=== PATIENT | female | born 1945 | race Caucasian/White ===

== ENCOUNTER 2019-12-18 20:09 | Inpatient (IN) | payer MEDICARE, OTHER ==
[2019-12-18] MEDS ORDERED: Acetaminophen 650 MG Suppository ONE (20:52)
[2019-12-18] MEDS ORDERED: Acetaminophen 325 MG Suppository ONE (20:52)
[2019-12-18] MEDS ORDERED: Ondansetron PF 4 MG/2 ML Vial ONE (20:54)
[2019-12-18] MEDS ORDERED: cefTRIAXone\\ROCEPHIN 2 GM VIAL ONE (20:54)
[2019-12-18 21:17] LABS: Hemoglobin 14.9 g/dL (12.0-16.0); Mean Corpuscular HGB CONC 33.1 g/dL (32.0-36.0); Mean Corpuscular Hemoglobin 34.1 pg (27.0-31.0); Platelet Count 207 thou/uL (130-400); Red Blood Cell (RBC) Count 4.37 mill/uL (4.20-5.40); White Blood Cell (WBC) Count 14.6 thou/uL (4.8-10.8)
[2019-12-18 21:28] LABS: Band 24 % (5-11); Lymphocytes 7 % (21-51); MDiff Complete? YES; Monocytes 5 % (0-10); Neutrophil 64 % (42-75); Platelet Morphology Comment Appears Adequate
[2019-12-18 21:36] LABS: Bacteria/HPF 4+ HPF (None Seen); Bilirubin Negative (Negative); Blood, Urine 2+ (Negative); Clarity Extra Turbid (Clear); Glucose, Urine (Dipstick) Normal (Negative); Ketone, Urine Negative (Negative); Leukocyte 500 Leu/uL (Negative); Nitrite Negative (Negative); Protein, Urine (Dipstick) 70 mg/dL (Neg-Trace); RBC/HPF 21-50 HPF (0-3); Specific Gravity, Urine 1.019 (1.002-1.036); Squamous Epithelial None Seen HPF (0-3); Urobilinogen Normal mg/dL (Less than 2); WBC/HPF Greater than 50 HPF (0-3); pH, Urine 5.5 (5.0-9.0)
--- NOTE | 2019-12-18 21:39 | RAD ---
PORTABLE CHEST: 12/18/19 INDICATIONS: Mental status change. Fever. COMPARISON: 03/11/16. Cardiomegaly with mild vascular engorgement. No evidence of overt congestion, edema, or infiltrate. N o significant effusion. A calcified nodule in the peripheral left lung is stable. IMPRESSION: Cardiomegaly and mild vascular engorgement without evidence of acute process. POS: AGW
[2019-12-18 22:37] LABS: Albumin 2.9 g/dL (3.4-4.8)
[2019-12-18 22:39] LABS: Calcium 9.1 mg/dL (7.8-10.44); Chloride 104 mmol/L (98-107); Potassium 3.7 mmol/L (3.5-5.1); Sodium 139 mmol/L (136-145)
[2019-12-18 22:40] LABS: Globulin 4.3 g/dL (2.4-3.5); Glucose 119 mg/dL (83-110); Protein, Total 7.2 g/dL (6.0-8.3)
[2019-12-18 22:41] LABS: Anion Gap 18 mmol/L (10-20); Carbon Dioxide 21 mmol/L (23-31)
[2019-12-18 22:42] LABS: Bilirubin, Total 1.9 mg/dL (0.2-1.2)
[2019-12-18 22:43] LABS: Alkaline Phosphatase 84 U/L (40-110); Calc. Creatinine Clearance 0 mL/min (70-130); Estimated GFR-MDRD 38
[2019-12-18 22:44] LABS: BUN (Urea Nitrogen) 24 mg/dL (9.8-20.1)
[2019-12-18 22:45] LABS: AST (SGOT) 21 U/L (5-34)
[2019-12-18 22:46] LABS: ALT (SGPT) 10 U/L (8-55)
[2019-12-19] MEDS ORDERED: Ondansetron PF 4 MG/2 ML Vial IVP PRN (00:23)
[2019-12-19] MEDS ORDERED: Sodium Chloride 0.9% 1,000 ML IV SCH (00:30)
--- NOTE | 2019-12-19 00:32 | PDOC.HHP ---
Hospitalist HPI - History of Present Illness Altered mental status History of Present Illness: 74-year-old morbidly obese woman with a history of hypertension, history of DVT, chronic lymphedema of lower extremities, history of UTI in the past was brought to the emergency department due to altered mental status. Patient spouse also reported she is not been eating well and was tolerating only liquids over the last few days. Spouse also reported patient has been weaker than usual therefore brought her to the emergency department. She denied any fever, she denied any cough or chest pain. She endorsed diarrhea. Patient noted to have leukocytosis. She was tachycardic and febrile with a temperature up to 102 in the ED. her UA suggest the presence of UTI. Patient was more awake after bolus of normal saline in the ED and was able to provide some history. She states that she needs help with transfer but is able to ambulate with a walker. Chest x-ray showed cardiomegaly with mild vascular congestion. Patient is admitted for further management of UTI with sepsis. Hospitalist ROS - Review of Systems Other: Except as documented, all other systems reviewed and negative Hospitalist History - Past Medical History Other Medical History: Hypertension, morbid obesity, osteoarthritis, prediabetes, history of deep vein thrombosis of bilateral lower extremities on Coumadin anticoagulation, chronic lymphedema, multiple skin wounds, history of urinary tract infection with sepsis, anxiety depression. - Family History Other Family History: Reviewed and noncontributory - Social History Smoking Status: Never smoker Alcohol: reports: None Drugs: reports: none Living Situation: With Family - Exam General - other findings: Morbidly obese Eye: PERRL, anicteric sclera ENT: normocephalic atraumatic, no oropharyngeal lesions, moist mucosa Neck: supple, symmetric, no JVD, no thyromegaly Heart: RRR, no murmur, no gallops Respiratory: CTAB, no wheezes, no rales Gastrointestinal: soft, non-tender, non-distended, normal bowel sounds Extremities: no cyanosis Extremities - other findings: Trace bilateral pitting edema of ankle. Skin: normal turgor Neurological: cranial nerve grossly intact, no focal deficits Musculoskeletal: normal tone Psychiatric: normal affect, oriented to person, oriented to place Hospitalist Results - Labs Result Diagrams: 12/18/19 20:56 12/18/19 22:05 Lab results: WBC 14.6 thou/uL (4.8-10.8) H 12/18/19 20:56 Hgb 14.9 g/dL (12.0-16.0) 12/18/19 20:56 Hct 45.0 % (36.0-47.0) 12/18/19 20:56 MCV 103.0 fL (78.0-98.0) H 12/18/19 20:56 Plt Count 207 thou/uL (130-400) 12/18/19 20:56 Band Neuts % (Manual) 24 % (5-11) H 12/18/19 20:56 Sodium 139 mmol/L (136-145) 12/18/19 22:05 Potassium 3.7 mmol/L (3.5-5.1) 12/18/19 22:05 Chloride 104 mmol/L (98-107) 12/18/19 22:05 Carbon Dioxide 21 mmol/L (23-31) L 12/18/19 22:05 BUN 24 mg/dL (9.8-20.1) H 12/18/19 22:05 Creatinine 1.36 mg/dL (0.6-1.1) H 12/18/19 22:05 Glucose 119 mg/dL (83-110) H 12/18/19 22:05 Lactic Acid 3.2 mmol/L (0.5-2.2) H 12/18/19 20:56 Calcium 9.1 mg/dL (7.8-10.44) 12/18/19 22:05 Total Bilirubin 1.9 mg/dL (0.2-1.2) H 12/18/19 22:05 AST 21 U/L (5-34) 12/18/19 22:05 ALT 10 U/L (8-55) 12/18/19 22:05 Alkaline Phosphatase 84 U/L (40-110) 12/18/19 22:05 Serum Total Protein 7.2 g/dL (6.0-8.3) 12/18/19 22:05 Albumin 2.9 g/dL (3.4-4.8) L 12/18/19 22:05 Urine Ketones Negative mg/dL (Negative) 12/18/19 21:15 Urine Blood 2+ (Negative) A 12/18/19 21:15 Urine Nitrite Negative (Negative) 12/18/19 21:15 Ur Leukocyte Esterase 500 Los/uL (Negative) A 12/18/19 21:15 Urine RBC 21-50 HPF (0-3) A 12/18/19 21:15 Urine WBC Greater than 50 HPF (0-3) A 12/18/19 21:15 Ur Squamous Epith Cells None Seen HPF (0-3) 12/18/19 21:15 Urine Bacteria 4+ HPF (None Seen) A 12/18/19 21:15 - Radiology Interpretation Chest x-ray Status: report reviewed by me (Cardiomegaly and mild vascular congestion) Hospitalist H&P A/P - Problem (1) Acute renal failure Status: Acute (2) Sepsis with metabolic encephalopathy Code(s): A41.9 - SEPSIS, UNSPECIFIED ORGANISM; R65.20 - SEVERE SEPSIS WITHOUT SEPTIC SHOCK; G93.41 - METABOLIC ENCEPHALOPATHY Status: Acute (3) History of DVT (deep vein thrombosis) Code(s): Z86.718 - PERSONAL HISTORY OF OTHER VENOUS THROMBOSIS AND EMBOLISM Status: Acute (4) Morbid obesity Code(s): E66.01 - MORBID (SEVERE) OBESITY DUE TO EXCESS CALORIES Status: Chronic (5) UTI (urinary tract infection) Status: Resolved Qualifiers: Urinary tract infection type: acute cystitis Hematuria presence: without hematuria Qualified Code(s): N30.00 - Acute cystitis without hematuria - Plan Plan: Admit to the medical floor. Sepsis protocol initiated. Repeat lactic acid. We will treat with IV Rocephin and vancomycin. Follow urine culture and blood cultures. Supportive measures. Brief IV hydration for acute renal failure. Monitor renal function. PT evaluation Continue Coumadin for history of DVT.
[2019-12-19 00:39] LABS: Lactic Acid 1.5 mmol/L (0.5-2.2)
[2019-12-19 01:08] LABS: INR-International Normal Ratio 1.2; PTT 40.7 sec (22.9-36.1); Prothrombin Time 15.6 sec (12.0-14.7)
--- NOTE | 2019-12-19 02:44 | PDOC.FMACP ---
Advance Care Planning - Problem (1) Acute renal failure Status: Acute (2) Sepsis with metabolic encephalopathy Status: Acute Code(s): A41.9 - SEPSIS, UNSPECIFIED ORGANISM; R65.20 - SEVERE SEPSIS WITHOUT SEPTIC SHOCK; G93.41 - METABOLIC ENCEPHALOPATHY (3) History of DVT (deep vein thrombosis) Status: Acute Code(s): Z86.718 - PERSONAL HISTORY OF OTHER VENOUS THROMBOSIS AND EMBOLISM (4) Morbid obesity Status: Chronic Code(s): E66.01 - MORBID (SEVERE) OBESITY DUE TO EXCESS CALORIES (5) UTI (urinary tract infection) Status: Resolved Qualifiers: Urinary tract infection type: acute cystitis Hematuria presence: without hematuria Qualified Code(s): N30.00 - Acute cystitis without hematuria - Note Summary: Advanced Care Planning was discussed. The diagnosis, prognosis and goals of care were discussed. Appropriate forms and documentation to accomplish the goals of care were discussed. All questions were answered. The Palliative Care Team will be engaged to assist with completion of any outstanding forms that are needed. Patient wishes to remain full code. Her surrogate decision maker is her . Time Spent (mins): 16
[2019-12-19 04:47] LABS: #Lymphocytes 1.3 thou/uL (1.20-3.40); #Monocytes 0.6 thou/uL (0.11-0.59); #Neutrophils 8.8 thou/uL (1.40-6.50); %Basophils 0.2 % (0.0-1.0); %Eosinophils 0.1 % (0.0-10.0); %Lymphocytes 11.9 % (21.0-51.0); %Monocytes 5.9 % (0.0-10.0); %Neutrophils 81.9 % (42.0-75.0); Hemoglobin 12.6 g/dL (12.0-16.0); Mean Corpuscular HGB CONC 32.4 g/dL (32.0-36.0); Mean Corpuscular Hemoglobin 34.6 pg (27.0-31.0); Mean Platelet Volume 8.3 fL (7.4-10.4); Platelet Count 141 thou/uL (130-400); Red Blood Cell (RBC) Count 3.64 mill/uL (4.20-5.40); White Blood Cell (WBC) Count 10.7 thou/uL (4.8-10.8)
[2019-12-19 05:09] LABS: Anion Gap 12 mmol/L (10-20); BUN (Urea Nitrogen) 25 mg/dL (9.8-20.1); Calc. Creatinine Clearance 67 mL/min (70-130); Calcium 9.2 mg/dL (7.8-10.44); Carbon Dioxide 20 mmol/L (23-31); Chloride 107 mmol/L (98-107); Estimated GFR-MDRD 43; Glucose 107 mg/dL (83-110); Potassium 4.2 mmol/L (3.5-5.1); Sodium 135 mmol/L (136-145)
--- NOTE | 2019-12-19 08:33 | CT ---
CT HEAD WITHOUT CONTRAST: INDICATION: Mental status change. FINDINGS: The ventricles have normal size and position. Moderately severe chronic ischemic white matter change s are noted. There is no evidence of a mass or hemorrhage. Evidence of encephalomalacia in the righ t cerebellum suggests old infarct. No evidence of acute cortical infarct or mass. IMPRESSION: Moderately severe chronic ischemic whit matter change. 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 POS: AGW
[2019-12-19] MEDS ORDERED: Vancomycin HCl 1 GM in Sodium Chloride 0.9% 250 ML 300 ML IVPB SCH (09:00)
[2019-12-19] MEDS ORDERED: Enoxaparin Sodium 40 MG/0.4 ML SYRINGE SC SCH (09:00)
[2019-12-19] MEDS ORDERED: FLU VACC QS2020-21(65YR UP)/PF 240 MCG/0.7 ML SYRINGE IM ONE (09:00)
[2019-12-19 12:10] LABS: SARS-CoV-2 MS2 Positive; SARS-CoV-2 N Gene Negative; SARS-CoV-2 S Gene Negative; SARS-CoV-2 by NAA Not Detected (NotDetected); SARS-CoV-2 orf1ab Negative
--- NOTE | 2019-12-19 12:30 | PDOC.HOSPP ---
- Objective Vital Signs & Weight: Vital Signs (12 hours) Temp Pulse Resp BP Pulse Ox 12/19/19 11:25 98.1 F 100 16 146/87 H 96 12/19/19 07:07 98.8 F 95 20 137/60 95 12/19/19 01:22 99 12/19/19 01:19 99.2 F 97 18 146/71 H 99 Weight Weight 231 lb 12.8 oz I&O: 12/18/19 12/19/19 12/20/19 06:59 06:59 06:59 Intake Total 700 Output Total 50 Balance 650 Result Diagrams: 12/19/19 04:21 12/19/19 04:21 Additional Labs: Accuchecks 12/19/19 12/19/19 10:59 06:08 POC Glucose 72 93 Hospitalist ROS - Medication Medications: Active Medications Generic Name Dose Route Start Last Admin Trade Name Freq PRN Reason Stop Dose Admin Enoxaparin Sodium 40 mg 12/19/19 09:00 12/19/19 08:21 Enoxaparin Sodium 40 Mg/0.4 Ml Syringe SC 40 mg 0900 HARPREET Administration Sodium Chloride 1,000 mls @ 75 mls/hr 12/19/19 00:30 12/19/19 01:57 Normal Saline 0.9% IV 12/19/19 12:31 Not Given .[id number] [facility] Hosp A/P - Plan Acute renal failure Status: Acute (2) Sepsis with metabolic encephalopathy Code(s): A41.9 - SEPSIS, UNSPECIFIED ORGANISM; R65.20 - SEVERE SEPSIS WITHOUT SEPTIC SHOCK; G93.41 - METABOLIC ENCEPHALOPATHY Status: Acute (3) History of DVT (deep vein thrombosis) Code(s): Z86.718 - PERSONAL HISTORY OF OTHER VENOUS THROMBOSIS AND EMBOLISM Status: Acute (4) Morbid obesity Code(s): E66.01 - MORBID (SEVERE) OBESITY DUE TO EXCESS CALORIES Status: Chronic (5) UTI (urinary tract infection) Status: Resolved Qualifiers: Urinary tract infection type: acute cystitis Hematuria presence: without hematuria Qualified Code(s): N30.00 - Acute cystitis without hematuria --Sepsis secondary to urinary tract infection present on admission - IV Rocephin and vancomycin. Follow urine culture and blood cultures. - Brief IV hydration for acute renal failure. Monitor renal function. PT evaluation consult placed as well as case finisher consult. history of DVT. -O history and physical suggested that patient is on Coumadin but I do not see Coumadin in his med rec. Also given a Lovenox DVT prophylaxis -. -Check with the patient and start Coumadin if she is taking Coumadin.
[2019-12-19] MEDS ORDERED: Iopamidol-370 76% 500 ML 1 ML ONE (13:51)
[2019-12-19] MEDS ORDERED: Metoprolol Tartrate 5 MG/5 ML VIAL IVP PRN (14:21)
[2019-12-19] MEDS ORDERED: Enoxaparin Sodium 100 MG/ML SYRINGE SC SCH (17:45)
--- NOTE | 2019-12-19 20:10 | ULT ---
BILATERAL LOWER EXTREMITY VENOUS DUPLEX: 12/19/19 Deep veins of both lower extremities evaluated with ultrasound and Doppler with color Doppler, spectr al analysis and compression. INDICATION: Bilateral lower extremity pain and edema. FINDINGS: In the right lower extremity, there is flow seen in the common femoral vein. Flow is seen in the mid and distal femoral vein. However, there is thrombus and loss of compressibility in the popliteal vein consistent with right l ower extremity DVT. In the left lower extremity there is flow in the common femoral vein. However, the left femoral vein in the mid thigh shows no evidence of compressibility and there is echogenic thrombus present. No sig nificant flow distal to this. IMPRESSION: Evidence of bilateral deep vein thrombosis. Technologist notified patient's nurse on 2N of these findings and the doctor will be notified. Code CR POS: AGDemond
[2019-12-19] MEDS: MEROPENEM 1 GM/50 ML 1 GM in Premix Bag 1 BAG IVPB SCH (20:35)
[2019-12-19] MEDS: Metoprolol Tartrate 50 MG TAB PO SCH (20:36)
[2019-12-19] MEDS: Acetaminophen 325 MG TAB PO PRN (20:36)
[2019-12-19] MEDS ORDERED: cefTRIAXone\\ROCEPHIN 2 GM in Sodium Chloride 0.9% 100 ML IVPB SCH (21:00)
[2019-12-19] MEDS ORDERED: Metoprolol Tartrate 100 MG TAB PO SCH (21:00)
--- NOTE | 2019-12-19 21:14 | CT ---
CTA CHEST WITH CONTRAST: 12/19/19 Axial tomograms obtained following angio protocol with multiplanar reconstruction and 3D postprocessi ng. INDICATIONS: Positive DVT. Assess for pulmonary embolus. FINDINGS: Pulmonary arteries show adequate enhancement. There is no evidence of pulmonary embolus. Thoracic aor ta shows atherosclerotic change. No dissection. The lungs show mild vascular congestion. No confluent infiltrate or consolidation. Mild bibasilar ate lectasis. Calcified nodule in the left lung base measures 1.2 cm. Calcified mediastinal lymph nodes a re noted indicating a prior granulomatous process. Images through the upper abdomen reveal granulomatous calcifications in the spleen. There is mild ane urysmal dilatation of the upper abdominal aorta with atherosclerotic changes. The upper abdominal aor ta measures up to 3.5 cm diameter. There is ectasia of the descending thoracic aorta with irregular l umen and peripheral thrombus. IMPRESSION: 1. No evidence of pulmonary embolus. 2. No acute lung process. 3. Evidence of prior granulomatous process. 4. Atherosclerotic changes in the thoracic aorta with ectasia of the descending thoracic aorta a nd mild aneurysmal dilatation of the upper abdominal aorta. POS: AGW
[2019-12-19 21:20] LABS: Platelet Count 167 thou/uL (130-400)
[2019-12-19] MEDS ORDERED: Vancomycin 1.5 GRAM/300 ML BAG 1.5 GM in Premix Bag 1 BAG IVPB SCH (22:00)
[2019-12-20] MEDS: MEROPENEM 1 GM/50 ML 1 GM in Premix Bag 1 BAG IVPB SCH ×3 (04:29→19:54)
[2019-12-20 04:38] LABS: Hemoglobin 11.7 g/dL (12.0-16.0); Platelet Count 150 thou/uL (130-400)
[2019-12-20] MEDS: Metoprolol Tartrate 50 MG TAB PO SCH ×2 (08:21→19:57)
[2019-12-20] MEDS ORDERED: Enoxaparin Sodium 100 MG/ML SYRINGE SC SCH (09:00)
[2019-12-20] MEDS ORDERED: Aspirin 81 mg Enteric Coated Tablet PO SCH (09:00)
[2019-12-20 11:13] LABS: Hemoglobin 13.2 g/dL (12.0-16.0)
[2019-12-20 11:26] LABS: INR-International Normal Ratio 1.2; Prothrombin Time 15.9 sec (12.0-14.7)
--- NOTE | 2019-12-20 12:03 | PDOC.HOSPP ---
- Subjective Encounter Date: 12/20/19 Encounter Time: 09:40 Subjective: While I was discussing the choices for anticoagulant patient had a rectal bleed. mostly of a blood clots and some bleed rather than terence bright red blood. Stable hemoglobin. Spouse states that they cannot afford the Coumadin as needs to be checked every month and they would not be able to check the INR even monthly basis. Oral anticoagulant choices are limited given the expense. Coumadin is the preferred choice. Discussed with the case loader operator about Xarelto or Eliquis. - Objective Vital Signs & Weight: Vital Signs (12 hours) Temp Pulse Resp BP BP Pulse Ox 12/20/19 11:00 98.5 F 82 18 143/63 H 100 12/20/19 07:04 98.5 F 72 16 142/67 H 100 12/20/19 03:27 97.3 F L 65 20 148/65 H 97 Weight Admit Weight 231 lb 1.6 oz Weight 226 lb 1.6 oz I&O: 12/19/19 12/20/19 12/21/19 06:59 06:59 06:59 Intake Total 700 700 Output Total 50 370 Balance 650 330 Result Diagrams: 12/20/19 10:56 12/20/19 04:16 Additional Labs: Accuchecks 12/20/19 12/20/19 12/20/19 10:44 06:20 03:06 POC Glucose 80 78 83 12/19/19 12/19/19 20:29 16:49 POC Glucose 78 84 Hospitalist ROS - Medication Medications: Active Medications Generic Name Dose Route Start Last Admin Trade Name Freq PRN Reason Stop Dose Admin Acetaminophen 650 mg 12/19/19 00:23 12/19/19 20:36 Acetaminophen 325 Mg Tab PO 650 mg Q4H PRN Administration Headache/Fever/Mild Pain (1-3) Vancomycin HCl 1.5 gm/ Device 300 mls @ 200 mls/hr 12/19/19 22:00 12/19/19 20:35 IVPB 300 mls 2200 HARPREET Administration Meropenem 1 gm/ Device 50 mls @ 100 mls/hr 12/19/19 20:00 12/20/19 11:33 IVPB 50 mls 0400,1200,2000 HARPREET Administration Metoprolol Tartrate 50 mg 12/19/19 21:00 12/20/19 08:21 Metoprolol Tartrate 50 Mg Tab PO 50 mg BID HARPREET Administration Pantoprazole Sodium 40 mg 12/20/19 09:00 12/20/19 08:20 Pantoprazole 40 Mg Tab PO 40 mg DAILY HARPREET Administration Sertraline HCl 50 mg 12/20/19 09:00 12/20/19 08:20 Sertraline Hcl 100 Mg Tab PO 50 mg DAILY HARPREET Administration - Exam General Appearance: NAD, awake alert General - other findings: Obese Eye: PERRL ENT: normocephalic atraumatic Neck: supple Heart: RRR Respiratory: CTAB, normal chest expansion Gastrointestinal: soft, normal bowel sounds Extremities - other findings: No venous stasis skin is warm to touch Neurological: no new deficit Psychiatric: A&O x 3 Hosp A/P - Plan Acute renal failure Status: Acute (2) Sepsis with metabolic encephalopathy Code(s): A41.9 - SEPSIS, UNSPECIFIED ORGANISM; R65.20 - SEVERE SEPSIS WITHOUT SEPTIC SHOCK; G93.41 - METABOLIC ENCEPHALOPATHY Status: Acute (3) History of DVT (deep vein thrombosis) Code(s): Z86.718 - PERSONAL HISTORY OF OTHER VENOUS THROMBOSIS AND EMBOLISM Status: Acute (4) Morbid obesity Code(s): E66.01 - MORBID (SEVERE) OBESITY DUE TO EXCESS CALORIES Status: Chronic (5) UTI (urinary tract infection) Status: Resolved Qualifiers: Urinary tract infection type: acute cystitis Hematuria presence: without hematuria Qualified Code(s): N30.00 - Acute cystitis without hematuria --Sepsis secondary to urinary tract infection present on admission - IV Rocephin and vancomycin. Follow urine culture and blood cultures. - Brief IV hydration for acute renal failure. Monitor renal function. PT evaluation consult placed as well as case loader operator consult. history of DVT. -O history and physical suggested that patient is on Coumadin but I do not see Coumadin in his med rec. Also given a Lovenox DVT prophylaxis -. -Check with the patient and start Coumadin if she is taking Coumadin. 4th Bilateral DVT -Negative PE Spouse states that they cannot afford the Coumadin as needs to be checked every month and they would not be able to check the INR even monthly basis. Oral anticoagulant choices are limited given the expense. Coumadin is the preferred choice. will Discuss with the case loader operator about Xarelto or Eliquis. Rectal bleed with blood clot Hemoglobin stable Discussed with Dr. Murphy - alton ocasio. -Restarting her Lovenox. -H&H 3 more times every 6 hours. Protonix p.o. She may need IVC filter placement given the future risk for GIB and need to be on NOAC or coumadin. We will discuss with Dr. Johnson tomorrow.
--- NOTE | 2019-12-20 13:38 | PDOC.EVN ---
Event Note - Event Note Event Note: Blood cultures came back positive for E. coli. 1 out of 2 positive. She is already covered with Merrem for ESBL E. coli UTI. Will repeat the blood culture tomorrow after 24 hours being first set positive. If second set of culture also positive, then she needs PICC line and 6 weeks of antibiotics. We will follow the clinical course.
[2019-12-20] MEDS ORDERED: Hydrocortisone Acetate 25 MG Suppository PR PRN (13:56)
[2019-12-20] MEDS ORDERED: Nystatin Powder 15 GM BOT TOP PRN (14:53)
[2019-12-20] MEDS: Acetaminophen 325 MG TAB PO PRN (15:35)
[2019-12-20 16:28] LABS: Hemoglobin 11.6 g/dL (12.0-16.0)
[2019-12-20] MEDS ORDERED: Sodium Chloride 0.9% (PF) 10 ML VIAL FS PRN (19:15)
[2019-12-20] MEDS ORDERED: Pantoprazole 40 MG VIAL IVP SCH (19:15)
[2019-12-20] MEDS: Enoxaparin Sodium 100 MG/ML SYRINGE SC SCH (19:54)
--- NOTE | 2019-12-20 20:18 | CON ---
DATE OF CONSULTATION: 12/20/2019 CONSULTING DOCTOR: Judd Rogel MD REASON FOR CONSULT: Rectal bleeding. HISTORY OF PRESENT ILLNESS: Ms. Lance is a 74-year-old female, who was admitted to the hospital yesterday for a complicated UTI. Apparently, she had not felt well for a couple of days and her noted to be confused and lethargic and much less interactive than usual. She had a low-grade temperature at home. EMS had noted to be 100 and here on arrival was 102. Apparently, she had vomited a few times yesterday and had not really been getting much down except for water. She denies any cough, shortness of breath, or chest pain, but apparently had also some dysuria. She was evaluated in the emergency room, mildly tachycardic up to 100 to 130 with a pulse of 102. She had a nonfocal exam except for diminished breath sounds and obese abdomen. She was evaluated for CVA, which was negative. She had a urine that ultimately showed E. coli and blood cultures have been positive for E. coli as well. Her urine showed greater than 500 leukocyte esterase, greater than 50 white blood cells, and 4+ bacteria. The patient did have a remote history of DVTs in the past several years ago. She apparently had been having complaints of leg discomfort, but they decided to go ahead and ultrasound her legs. Venogram yesterday showed no evidence of bilateral DVTs. It is unclear if these are old or new. In any event, she has not been having any swelling or pain in her legs. She was started on anticoagulation and around that time, she had a bowel movement with some bright red blood per rectum. I was called to evaluate her. The patient notes that she has intermittent rectal bleeding and has for several years. She attributes this to hemorrhoids, usually bright red. She notes that after she was diagnosed with her DVTs, she was discharged in 2017. She was sent out on Coumadin. She was in a care home for a time, where this was covered, but ultimately when she was released, she could not afford, given that she has not been on it for at least a year. She denies shortness of breath or dyspnea on exertion. A CT angio was negative. REVIEW OF SYSTEMS: Negative for shortness of breath, dyspnea on exertion, dysphagia, odynophagia, melena, or weight loss. She has had rectal bleeding intermittently. At times, she has had diarrhea since starting antibiotics on admission, not prior to admission. PAST MEDICAL HISTORY: Morbid obesity, osteoarthritis, diabetes, history of DVT in 2017, chronic lymphedema in the past, history of UTIs in the past with sepsis, anxiety, and depression. PAST SURGICAL HISTORY: Tonsillectomy. She notes she has had a barium enema done, she had a colonoscopy in the past. Breast cyst removal as well. MEDICATIONS AT HOME: 1. Sertraline. 2. Omeprazole. 3. Metoprolol. 4. Aspirin. ALLERGIES: CODEINE, TALWIN, AND DARVON. MEDICATIONS PRESENTLY: 1. Tylenol. 2. Lovenox. 3. Meropenem. 4. Lopressor b.i.d. 50 mg. 5. Zofran. 6. Protonix 40 mg daily. 7. Sertraline. 8. Vancomycin. FAMILY HISTORY: Negative for colon cancer or liver disease. SOCIAL HISTORY: Negative for alcohol or tobacco. She is now living at home with her . LABORATORY DATA: Blood work; white count 14,000 on admission, 10,000 yesterday, and not done today. Hemoglobin 13.2, today it was 11.7 earlier this morning, 13 yesterday, 12.6 on the 3rd, and 14.9 on admission. Platelet count normal. INR 1.1. Creatinine is 1.04. On 12/17, she had a sodium 139, potassium 3.7, and BUN and creatinine of 24 and 1.36. Bilirubin 1.9. Liver function tests otherwise normal. Albumin 2.9. PHYSICAL EXAMINATION: VITAL SIGNS: Temperature is 95, pulse 82, and blood pressure 143/63. LUNGS: Clear. HEART: Regular rate and rhythm without clicks or murmurs. ABDOMEN: Soft. It is protuberant and obese. There is no rebound. There is no guarding. There is no evidence of hernias. EXTREMITIES: Reveal a large legs bilaterally, but there is no overt tightness in the leg or calf on either leg. She has no tenderness to palpation in leg or calf in either leg. RECTAL: Reveals brown stool, liquidy in the vault. GENERAL: She is alert and oriented to person, place, and time. NEUROLOGIC: Nonfocal. ASSESSMENT: 1. Rectal bleeding sounds hemorrhoidal. She has a normal exam except for brown stool and a small hemorrhoid. There is no gross blood in the rectum at this time. 2. Deep venous thrombosis. It is unclear if these are new or old. We will defer that to Internal Medicine. 3. Urosepsis. RECOMMENDATIONS: 1. I talked to the patient about getting a colonoscopy this admission, but she does not want to do that. She states she will not do that. She attributes her rectal bleeding to hemorrhoids. I have explained that it may worsen if she goes back on anticoagulation. She is not sure she would be able to do that either financially. She does understand the risk of malignancy and risk of intestinal hemorrhage with development of a hemorrhagic shock. I think that is unlikely. 2. Recommended topical steroids for her hemorrhoids. Recommended high-fiber diet. Would give her a probiotic as well for diarrhea with her antibiotics. If she changes her mind about the colonoscopy, I will be happy to re-evaluate her. She should be on a PPI for ulcer prophylaxis if she is going to be taking NSAIDs at home or be on prolonged anticoagulation. Job ID: [id number]
[2019-12-20] MEDS ORDERED: Vancomycin HCl 1.25 GM in Sodium Chloride 0.9% 250 ML 250 ML IVPB SCH (22:00)
[2019-12-21] MEDS: MEROPENEM 1 GM/50 ML 1 GM in Premix Bag 1 BAG IVPB SCH ×3 (03:46→21:56)
[2019-12-21] MEDS: Saccharomyces boulardii 250 MG CAP PO SCH (09:19)
[2019-12-21] MEDS: Metoprolol Tartrate 50 MG TAB PO SCH ×2 (09:19→21:57)
[2019-12-21] MEDS: Enoxaparin Sodium 100 MG/ML SYRINGE SC SCH (09:21)
[2019-12-21] MEDS: Pantoprazole 40 MG VIAL IVP SCH ×2 (09:27→21:57)
--- NOTE | 2019-12-21 12:05 | PDOC.HOSPP ---
- Subjective Encounter Date: 12/21/19 Encounter Time: 09:30 Subjective: Patient is doing well. She has no further blood in the stool. Hemoglobin stable. Discussed about anticoagulation choices. She will continue to take that provided it is inexpensive for her. I also discussed with Dr. Johnson on the possibility for IVC filter evaluation. - Objective Vital Signs & Weight: Vital Signs (12 hours) Temp Pulse Resp BP Pulse Ox 12/21/19 08:00 99.7 F H 60 18 193/79 H 100 12/21/19 03:10 98.3 F 58 L 20 136/65 99 Weight Admit Weight 231 lb 1.6 oz Weight 234 lb 9.6 oz I&O: 12/20/19 12/21/19 12/22/19 06:59 06:59 06:59 Intake Total 700 1410 120 Output Total 370 1000 Balance 330 410 120 Result Diagrams: 12/20/19 16:15 12/20/19 04:16 Additional Labs: Accuchecks 12/21/19 12/20/19 12/20/19 10:49 20:24 16:52 POC Glucose 88 93 81 Hospitalist ROS - Medication Medications: Active Medications Generic Name Dose Route Start Last Admin Trade Name Freq PRN Reason Stop Dose Admin Acetaminophen 650 mg 12/19/19 00:23 12/20/19 15:35 Acetaminophen 325 Mg Tab PO 650 mg Q4H PRN Administration Headache/Fever/Mild Pain (1-3) Enoxaparin Sodium 100 mg 12/20/19 21:00 12/21/19 09:21 Enoxaparin Sodium 100 Mg/Ml Syringe SC 100 mg 0900,2100 HARPREET Administration Meropenem 1 gm/ Device 50 mls @ 100 mls/hr 12/19/19 20:00 12/21/19 03:46 IVPB 50 mls 0400,1200,2000 HARPREET Administration Vancomycin HCl 1.25 gm/ Sodium 250 mls @ 166.667 mls/hr 12/20/19 22:00 12/20/19 22:22 Chloride IVPB 250 mls 2200 HARPREET Administration Metoprolol Tartrate 50 mg 12/19/19 21:00 12/21/19 09:19 Metoprolol Tartrate 50 Mg Tab PO 50 mg BID HARPREET Administration Pantoprazole Sodium 40 mg 12/21/19 09:00 12/21/19 09:27 Pantoprazole 40 Mg Vial IVP 40 mg Q12HR HARPREET Administration Saccharomyces Boulardii 250 mg 12/21/19 09:00 12/21/19 09:19 Saccharomyces Boulardii 250 Mg Cap PO 250 mg DAILY HARPREET Administration Sertraline HCl 50 mg 12/20/19 09:00 12/21/19 09:19 Sertraline Hcl 100 Mg Tab PO 50 mg DAILY HARPREET Administration Sodium Chloride 10 ml 12/20/19 19:15 12/21/19 09:23 Sodium Chloride 0.9% (Pf) 10 Ml Vial FS 10 ml PRN PRN Administration RECONSTITUTION - Exam General Appearance: NAD, awake alert Eye: PERRL ENT: normocephalic atraumatic Neck: supple Heart: RRR Respiratory: CTAB, normal chest expansion Gastrointestinal: soft, normal bowel sounds Neurological: no weakness Psychiatric: A&O x 3 Hosp A/P - Plan Acute renal failure Status: Acute (2) Sepsis with metabolic encephalopathy Code(s): A41.9 - SEPSIS, UNSPECIFIED ORGANISM; R65.20 - SEVERE SEPSIS WITHOUT SEPTIC SHOCK; G93.41 - METABOLIC ENCEPHALOPATHY Status: Acute (3) History of DVT (deep vein thrombosis) Code(s): Z86.718 - PERSONAL HISTORY OF OTHER VENOUS THROMBOSIS AND EMBOLISM Status: Acute (4) Morbid obesity Code(s): E66.01 - MORBID (SEVERE) OBESITY DUE TO EXCESS CALORIES Status: Chronic (5) UTI (urinary tract infection) Status: Resolved Qualifiers: Urinary tract infection type: acute cystitis Hematuria presence: without hematuria Qualified Code(s): N30.00 - Acute cystitis without hematuria --Sepsis secondary to urinary tract infection present on admission - IV Rocephin and vancomycin. Follow urine culture and blood cultures. - Brief IV hydration for acute renal failure. Monitor renal function. PT evaluation consult placed as well as medical case manager consult. history of DVT. -O history and physical suggested that patient is on Coumadin but I do not see Coumadin in his med rec. Also given a Lovenox DVT prophylaxis -. -Check with the patient and start Coumadin if she is taking Coumadin. 4th Bilateral DVT -Negative PE Spouse states that they cannot afford the Coumadin as needs to be checked every month and they would not be able to check the INR even monthly basis. Oral anticoagulant choices are limited given the expense. Coumadin is the preferred choice. will Discuss with the medical case manager about Xarelto or Eliquis. Rectal bleed with blood clot Hemoglobin stable Discussed with Dr. Murphy - ok w.. -Restarting her Lovenox. -H&H 3 more times every 6 hours. Protonix p.o. She may need IVC filter placement given the future risk for GIB and need to be on NOAC or coumadin. We will discuss with Dr. Johnson tomorrow. 5th -No further rectal bleed. -Appreciate the help from Dr. Murphy -Talk to Dr. oJhnson, given the recent rectal bleed I discussed about the IVC filter evaluation. Oral anticoagulation is preferred method for now.. If she had any recurrence of GI bleed, then we can consider placing IVC filter placement. We will start her on Coumadin this evening. Await until INR therapeutic. Also will check with the medical case manager whether Medicare would cover for her Xarelto or Eliquis if that is the case then we can put her on NOAC and discharge her earlier.
--- NOTE | 2019-12-21 14:44 | PRG ---
DATE OF SERVICE: 12/21/2019 REASON FOR CONSULTATION: Hematochezia. SUBJECTIVE: Over the last 24 hours, the patient states that she has had 1 to 2 diarrhea like bowel movements (Win[place] 5) with no difficulty with defecation; however, with the bowel movement this morning, she denied any appearance of hematochezia, that was confirmed by nursing staff. Otherwise, she currently denies any nausea, vomiting, fevers, chills, hematemesis, melena, hematochezia, abdominal pain, dysphagia, or odynophagia. OBJECTIVE: VITAL SIGNS: Temperature 99.1, pulse 66, blood pressure 146/74, respiratory rate 16, and saturating 100% on 2 L nasal cannula. GENERAL: The patient was lying in bed, in no acute distress. Alert and oriented x4. CARDIOVASCULAR: Regular rate and rhythm. RESPIRATORY: Clear to auscultation bilaterally. ABDOMEN: Normoactive bowel sounds. Soft, nontender, and nondistended. EXTREMITIES: No cyanosis, clubbing, or edema. LABORATORY DATA: Hemoglobin of 11.6 and hematocrit 35.8. IMAGING DATA: No current GI imaging is available for review. ASSESSMENT: 1. Hematochezia, most likely due to hemorrhoidal bleeding. Rectal exam performed on 12/19 showed the presence of a small nonbleeding external hemorrhoid with stable hemoglobin and hematocrit over the last 24 hours and no further episodes of hematochezia. 2. Deep vein thrombosis. The patient presenting with a history of deep vein thrombosis, that was on chronic anticoagulation prior to admission. Currently, no evidence of deep vein thromboses on recent imaging. 3. Urosepsis secondary to Eschericia coli and resultant bacteremia. RECOMMENDATIONS: 1. Would continue to trend her hemoglobin and hematocrit and transfuse as necessary to maintain the hemoglobin and hematocrit of 7/21. 2. Continue to monitor clinically for signs of active GI bleeding. 3. We would restart the patient on anticoagulation and monitor the patient after restarting. 4. Continue topical steroids for external hemorrhoids as the likely source of her hematochezia. 5. Endoscopic evaluation is not indicated at this time due to stabilization of her hemoglobin and hematocrit. No further episodes of GI bleeding and per patient preference. I discussed the risks and benefits of colonoscopy with the patient today, and at this time, she would prefer not to undergo the procedure at this time. 6. We will continue the patient on probiotics for her antibiotic-associated diarrhea. With stabilization of her hemoglobin and hematocrit and the patient refusing colonoscopy at this time, we will sign off. Please call with any further questions or change in the patient's clinical status. Job ID: [id number]
[2019-12-21] MEDS ORDERED: Warfarin Sodium 5 MG TAB PO SCH (17:00)
[2019-12-21] MEDS: Rivaroxaban 15 MG TAB PO SCH (21:56)
[2019-12-22] MEDS: MEROPENEM 1 GM/50 ML 1 GM in Premix Bag 1 BAG IVPB SCH ×3 (05:37→21:23)
[2019-12-22] MEDS: Saccharomyces boulardii 250 MG CAP PO SCH (09:16)
[2019-12-22] MEDS: Metoprolol Tartrate 50 MG TAB PO SCH ×2 (09:16→21:22)
[2019-12-22] MEDS: Rivaroxaban 15 MG TAB PO SCH ×2 (09:16→21:23)
[2019-12-22] MEDS: Pantoprazole 40 MG VIAL IVP SCH ×2 (09:16→21:23)
[2019-12-22 09:58] LABS: #Eosinphils 0.3 thou/uL (0.0-0.7); #Lymphocytes 1.8 thou/uL (1.20-3.40); #Monocytes 0.6 thou/uL (0.11-0.59); #Neutrophils 5.6 thou/uL (1.40-6.50); %Basophils 0.2 % (0.0-1.0); %Eosinophils 3.2 % (0.0-10.0); %Lymphocytes 21.8 % (21.0-51.0); %Monocytes 7.4 % (0.0-10.0); %Neutrophils 67.3 % (42.0-75.0); Hemoglobin 13.2 g/dL (12.0-16.0); Mean Corpuscular Hemoglobin 33.2 pg (27.0-31.0); Mean Platelet Volume 7.9 fL (7.4-10.4); Platelet Count 173 thou/uL (130-400); RBC Distribution Width 13.9 % (11.5-14.5); Red Blood Cell (RBC) Count 3.97 mill/uL (4.20-5.40); White Blood Cell (WBC) Count 8.4 thou/uL (4.8-10.8)
[2019-12-22 10:03] LABS: INR-International Normal Ratio 1.9; PTT 39.1 sec (22.9-36.1); Prothrombin Time 21.8 sec (12.0-14.7)
--- NOTE | 2019-12-22 12:03 | PDOC.HOSPP ---
- Subjective Encounter Date: 12/22/19 Encounter Time: 10:20 Subjective: at bedside. Discussed Coumadin versus Xarelto. The need to check INR not necessary. agreed for being on Xarelto. We can arrange with coupon for her to go home with a 1 month supply. However later that I heard that she is not able to move much with physical therapist supervision. Plan changed from home discharge to send her to the rehab. - Objective Vital Signs & Weight: Vital Signs (12 hours) Temp Pulse Pulse Pulse Resp BP BP 12/22/19 10:05 74 75 142/75 H 172/77 H 12/22/19 07:05 99.0 F 63 16 12/22/19 03:11 98.5 F 60 16 BP Pulse Ox Pulse Ox Pulse Ox 12/22/19 10:05 97 97 12/22/19 07:05 141/65 H 100 12/22/19 03:11 178/75 H 99 Weight Admit Weight 231 lb 1.6 oz Weight 234 lb 2.447 oz I&O: 12/21/19 12/22/19 12/23/19 06:59 06:59 06:59 Intake Total 1410 360 Output Total 1000 650 Balance 410 -290 Result Diagrams: 12/22/19 09:38 12/20/19 04:16 Additional Labs: Accuchecks 12/22/19 12/22/19 12/21/19 11:33 05:43 19:54 POC Glucose 100 78 89 12/21/19 12/21/19 16:57 06:17 POC Glucose 71 89 Hospitalist ROS - Medication Medications: Active Medications Generic Name Dose Route Start Last Admin Trade Name Freq PRN Reason Stop Dose Admin Acetaminophen 650 mg 12/19/19 00:23 12/20/19 15:35 Acetaminophen 325 Mg Tab PO 650 mg Q4H PRN Administration Headache/Fever/Mild Pain (1-3) Meropenem 1 gm/ Device 50 mls @ 100 mls/hr 12/19/19 20:00 12/22/19 11:38 IVPB 50 mls 0400,1200,2000 HARPREET Administration Metoprolol Tartrate 50 mg 12/19/19 21:00 12/22/19 09:16 Metoprolol Tartrate 50 Mg Tab PO 50 mg BID HARPREET Administration Pantoprazole Sodium 40 mg 12/21/19 09:00 12/22/19 09:16 Pantoprazole 40 Mg Vial IVP 40 mg Q12HR HARPREET Administration Rivaroxaban 15 mg 12/21/19 21:00 12/22/19 09:16 Rivaroxaban 15 Mg Tab PO 15 mg BID HARPREET Administration Saccharomyces Boulardii 250 mg 12/21/19 09:00 12/22/19 09:16 Saccharomyces Boulardii 250 Mg Cap PO 250 mg DAILY HARPREET Administration Sertraline HCl 50 mg 12/20/19 09:00 12/22/19 09:16 Sertraline Hcl 100 Mg Tab PO 50 mg DAILY HARPREET Administration Sodium Chloride 10 ml 12/20/19 19:15 12/21/19 09:23 Sodium Chloride 0.9% (Pf) 10 Ml Vial FS 10 ml PRN PRN Administration RECONSTITUTION - Exam General Appearance: NAD, awake alert Eye: PERRL ENT: normocephalic atraumatic Neck: supple Heart: RRR Respiratory: CTAB Gastrointestinal: soft, normal bowel sounds Neurological: no focal deficits Psychiatric: A&O x 3 Hosp A/P - Plan Acute renal failure Status: Acute (2) Sepsis with metabolic encephalopathy Code(s): A41.9 - SEPSIS, UNSPECIFIED ORGANISM; R65.20 - SEVERE SEPSIS WITHOUT SEPTIC SHOCK; G93.41 - METABOLIC ENCEPHALOPATHY Status: Acute (3) History of DVT (deep vein thrombosis) Code(s): Z86.718 - PERSONAL HISTORY OF OTHER VENOUS THROMBOSIS AND EMBOLISM S tatus: Acute (4) Morbid obesity Code(s): E66.01 - MORBID (SEVERE) OBESITY DUE TO EXCESS CALORIES Status: Chronic (5) UTI (urinary tract infection) Status: Resolved Qualifiers: Urinary tract infection type: acute cystitis Hematuria presence: without hematuria Qualified Code(s): N30.00 - Acute cystitis without hematuria --Sepsis secondary to urinary tract infection present on admission - IV Rocephin and vancomycin. Follow urine culture and blood cultures. - Brief IV hydration for acute renal failure. Monitor renal function. PT evaluation consult placed as well as case packer consult. history of DVT. -O history and physical suggested that patient is on Coumadin but I do not see Coumadin in his med rec. Also given a Lovenox DVT prophylaxis -. -Check with the patient and start Coumadin if she is taking Coumadin. 4th Bilateral DVT -Negative PE Spouse states that they cannot afford the Coumadin as needs to be checked every month and they would not be able to check the INR even monthly basis. Oral anticoagulant choices are limited given the expense. Coumadin is the preferred choice. will Discuss with the case packer about Xarelto or Eliquis. Rectal bleed with blood clot Hemoglobin stable Discussed with Dr. Murphy - alton ocasio. -Restarting her Lovenox. -H&H 3 more times every 6 hours. Protonix p.o. She may need IVC filter placement given the future risk for GIB and need to be on NOAC or coumadin. We will discuss with Dr. Johnson tomorrow. 5th -No further rectal bleed. -Appreciate the help from Dr. Murphy -Talk to Dr. Johnson, given the recent rectal bleed I discussed about the IVC filter evaluation. Oral anticoagulation is preferred method for now.. If she had any recurrence of GI bleed, then we can consider placing IVC filter placement. We will start her on Coumadin this evening. Await until INR therapeutic. Also will check with the case packer whether Medicare would cover for her Xarelto or Eliquis if that is the case then we can put her on NOAC and discharge her earlier. 6th agreed for being on Xarelto. We can arrange with coupon for her to go home with a 1 month supply. However later that I heard that she is not able to move much with physical therapist supervision. Plan changed from home discharge to send her to the rehab. Reconsulted case packer for the rehab placement. Occupational Therapy consult placed
--- NOTE | 2019-12-22 14:24 | EKG ---
Test Reason : Blood Pressure : / mmHG Vent. Rate : 095 BPM Atrial Rate : 095 BPM P-R Int : 204 ms QRS Dur : 082 ms QT Int : 336 ms P-R-T Axes : 080 -03 049 degrees QTc Int : 422 ms Normal sinus rhythm Normal ECG Confirmed by EL FAULKNER ([id number]) on 12/22/2019 2:24:00 PM Referred By: JIGNESH Confirmed By:EL FAULKNER
[2019-12-23 04:25] LABS: #Eosinphils 0.2 thou/uL (0.0-0.7); #Lymphocytes 1.8 thou/uL (1.20-3.40); #Monocytes 0.6 thou/uL (0.11-0.59); %Basophils 0.4 % (0.0-1.0); %Eosinophils 2.9 % (0.0-10.0); %Lymphocytes 23.6 % (21.0-51.0); %Monocytes 7.8 % (0.0-10.0); %Neutrophils 65.3 % (42.0-75.0); Hemoglobin 11.3 g/dL (12.0-16.0); Mean Corpuscular HGB CONC 33.7 g/dL (32.0-36.0); Mean Corpuscular Hemoglobin 35.2 pg (27.0-31.0); Mean Platelet Volume 8.3 fL (7.4-10.4); Platelet Count 191 thou/uL (130-400); RBC Distribution Width 13.8 % (11.5-14.5); White Blood Cell (WBC) Count 7.6 thou/uL (4.8-10.8)
[2019-12-23] MEDS: MEROPENEM 1 GM/50 ML 1 GM in Premix Bag 1 BAG IVPB SCH ×2 (05:42→13:02)
[2019-12-23] MEDS: Metoprolol Tartrate 50 MG TAB PO SCH ×2 (08:31→20:28)
[2019-12-23] MEDS: Rivaroxaban 15 MG TAB PO SCH ×2 (08:32→20:28)
[2019-12-23] MEDS: Saccharomyces boulardii 250 MG CAP PO SCH (08:36)
[2019-12-23] MEDS: Pantoprazole 40 MG VIAL IVP SCH ×2 (08:38→20:28)
[2019-12-23] MEDS ORDERED: Metoprolol Tartrate 5 MG/5 ML VIAL IVP PRN (08:48)
[2019-12-23] MEDS: cloNIDine 0.1 MG TAB PO PRN (09:53)
[2019-12-23] MEDS ORDERED: ALPRAZolam 0.25 MG TAB PO SCH (10:30)
--- NOTE | 2019-12-23 12:06 | PDOC.HOSPP ---
- Subjective Encounter Date: 12/23/19 Encounter Time: 09:45 Subjective: Patient is slightly depressed. Student nearby. Discussed with RN. She prefers to go home than to the rehab, even though she is quite debilitated. Given the complexity of the ESBL urinary tract infection and bacteremia I am consulting Dr. Guillaume for his input on the duration of the IV antibiotics vs. PO. And if needed a PICC line needs to be placed. Patient lives in the [facility] vicinity. Should be able to arrange home IV antibiotic if needed. - Objective Vital Signs & Weight: Vital Signs (12 hours) Temp Pulse Resp BP BP BP Pulse Ox 12/23/19 11:56 99.2 F 56 L 16 137/60 96 12/23/19 10:54 150/66 H 12/23/19 09:53 154/68 H 12/23/19 08:25 98.5 F 73 24 H 185/77 H 97 12/23/19 04:00 99.6 F 72 26 H 143/67 H 98 Weight Admit Weight 231 lb 1.6 oz Weight 234 lb 0.331 oz I&O: 12/22/19 12/23/19 12/24/19 06:59 06:59 06:59 Intake Total 360 840 Output Total 650 1130 Balance -290 -290 Result Diagrams: 12/23/19 03:21 12/23/19 03:21 Additional Labs: Accuchecks 12/23/19 12/23/19 12/22/19 11:34 06:09 20:30 POC Glucose 118 H 98 99 12/22/19 17:16 POC Glucose 99 Hospitalist ROS - Medication Medications: Active Medications Generic Name Dose Route Start Last Admin Trade Name Freq PRN Reason Stop Dose Admin Acetaminophen 650 mg 12/19/19 00:23 12/20/19 15:35 Acetaminophen 325 Mg Tab PO 650 mg Q4H PRN Administration Headache/Fever/Mild Pain (1-3) Alprazolam 0.25 mg 12/23/19 10:30 12/23/19 10:56 Alprazolam 0.25 Mg Tab PO 12/23/19 13:00 Not Given NOW HARPREET Clonidine 0.1 mg 12/23/19 08:48 12/23/19 09:53 Clonidine 0.1 Mg Tab PO 0.1 mg Q4H PRN Administration Blood Pressure, SBP>150 Meropenem 1 gm/ Device 50 mls @ 100 mls/hr 12/19/19 20:00 12/23/19 05:42 IVPB 50 mls 0400,1200,2000 HARPREET Administration Metoprolol Tartrate 50 mg 12/19/19 21:00 12/23/19 08:31 Metoprolol Tartrate 50 Mg Tab PO 50 mg BID HARPREET Administration Pantoprazole Sodium 40 mg 12/21/19 09:00 12/23/19 08:38 Pantoprazole 40 Mg Vial IVP 40 mg Q12HR HARPREET Administration Rivaroxaban 15 mg 12/21/19 21:00 12/23/19 08:32 Rivaroxaban 15 Mg Tab PO 15 mg BID HARPREET Administration Saccharomyces Boulardii 250 mg 12/21/19 09:00 12/23/19 08:36 Saccharomyces Boulardii 250 Mg Cap PO 250 mg DAILY HARPREET Administration Sertraline HCl 50 mg 12/20/19 09:00 12/23/19 08:32 Sertraline Hcl 100 Mg Tab PO 50 mg DAILY HARPREET Administration Sodium Chloride 10 ml 12/20/19 19:15 12/21/19 09:23 Sodium Chloride 0.9% (Pf) 10 Ml Vial FS 10 ml PRN PRN Administration RECONSTITUTION - Exam General Appearance: NAD, awake alert Eye: PERRL ENT: normocephalic atraumatic Neck: supple Heart: RRR, normal peripheral pulses Respiratory: CTAB, normal chest expansion Gastrointestinal: soft, normal bowel sounds Neurological: cranial nerve grossly intact, no focal deficits Psychiatric: A&O x 3 Hosp A/P - Plan Acute renal failure Status: Acute (2) Sepsis with metabolic encephalopathy Code(s): A41.9 - SEPSIS, UNSPECIFIED ORGANISM; R65.20 - SEVERE SEPSIS WITHOUT SEPTIC SHOCK; G93.41 - METABOLIC ENCEPHALOPATHY Status: Acute (3) History of DVT (deep vein thrombosis) Code(s): Z86.718 - PERSONAL HISTORY OF OTHER VENOUS THROMBOSIS AND EMBOLISM Status: Acute (4) Morbid obesity Code(s): E66.01 - MORBID (SEVERE) OBESITY DUE TO EXCESS CALORIES Status: Chronic (5) UTI (urinary tract infection) Status: Resolved Qualifiers: Urinary tract infection type: acute cystitis Hematuria presence: without hematuria Qualified Code(s): N30.00 - Acute cystitis without hematuria --Sepsis secondary to urinary tract infection present on admission - IV Rocephin and vancomycin. Follow urine culture and blood cultures. - Brief IV hydration for acute renal failure. Monitor renal function. PT evaluation consult placed as well as patient case manager consult. history of DVT. -O history and physical suggested that patient is on Coumadin but I do not see Coumadin in his med rec. Also given a Lovenox DVT prophylaxis -. -Check with the patient and start Coumadin if she is taking Coumadin. 4th Bilateral DVT -Negative PE Spouse states that they cannot afford the Coumadin as needs to be checked every month and they would not be able to check the INR even monthly basis. Oral anticoagulant choices are limited given the expense. Coumadin is the preferred choice. will Discuss with the patient case manager about Xarelto or Eliquis. Rectal bleed with blood clot Hemoglobin stable Discussed with Dr. Murphy - alton ocasio. -Restarting her Lovenox. -H&H 3 more times every 6 hours. Protonix p.o. She may need IVC filter placement given the future risk for GIB and need to be on NOAC or coumadin. We will discuss with Dr. Johnson tomorrow. 5th -No further rectal bleed. -Appreciate the help from Dr. Murphy -Talk to Dr. Johnson, given the recent rectal bleed, I discussed about the IVC filter evaluation. Oral anticoagulation is preferred method for now.. If she had any recurrence of GI bleed, then we can consider placing IVC filter placement. We will start her on Coumadin this evening. Await until INR therapeutic. Also will check with the patient case manager whether Medicare would cover for her Xarelto or Eliquis if that is the case then we can put her on NOAC and discharge her earlier. 6th agreed for being on Xarelto. We can arrange with coupon for her to go home with a 1 month supply. However later that I heard that she is not able to move much with physical therapist supervision. Plan changed from home discharge to send her to the rehab. Reconsulted patient case manager for the rehab placement. Occupational Therapy consult placed. 7th She prefers to go home than to the rehab, even though she is quite debilitated. Given the complexity of the ESBL urinary tract infection and bacteremia I am consulting Dr. Guillaume for his input on the duration of the IV antibiotics vs. PO. And if needed a PICC line needs to be placed. Patient lives in the [place] vicinity. Should be able to arrange home IV antibiotic if needed.
[2019-12-23] MEDS ORDERED: cefTRIAXone\\ROCEPHIN 2 GM in Sodium Chloride 0.9% 100 ML IVPB SCH (12:30)
--- NOTE | 2019-12-23 13:38 | CT ---
CT abdomen and pelvis without IV contrast.. Oral contrast was not administered. INDICATIONS: Abdominal pain. Urosepsis COMPARISON: None FINDINGS: Small bilateral effusions and bibasilar atelectasis. Liver, spleen, and pancreas appear unremarkable. Stomach and duodenum appear unremarkable. Adrenal glands appear normal. Atrophic left kidney again noted. Right kidney unremarkable. No evidence of ureteral calculus or obst ruction. Urinary bladder mildly distended and unremarkable. Small bowel loops are normal caliber and exhibit normal fold pattern. Appendix not identified. Scattered diverticula in the colon again noted. Aorta is calcified and is unchanged in appearance from prior exam. Question focal dissection in the m id abdominal aorta is stable in appearance. No evidence of retroperitoneal or mesenteric adenopathy. Uterus and adnexa unremarkable. There is a heterogeneous circumscribed mass in the subcutaneous tissues of the right abdomen lateral to the umbilicus measuring 4.5 cm. There are surrounding inflammatory changes in the subcutaneous adipose tissue. Considerations include hematoma and abscess. Osseous structures appear unremarkable. IMPRESSION: 1. Circumscribed heterogeneous mass in the subcutaneous adipose tissues right abdomen. Hematoma versu s abscess are considerations. 2. Small bilateral pleural effusions and bibasilar atelectasis 3. No other interval change noted
[2019-12-23] MEDS: cefTRIAXone\\ROCEPHIN 2 GM in Sodium Chloride 0.9% 100 ML IVPB SCH (15:04)
--- NOTE | 2019-12-23 19:39 | CON ---
DATE OF CONSULTATION: 12/23/2019 REASON FOR CONSULTATION: Urosepsis. HISTORY OF PRESENT ILLNESS: A 74-year-old patient whom I had seen twice in 2016 and 2017. The last time she presented with a history of type 2 diabetes, hypertension, osteoarthritis, as well as obesity and mobility impairment. There had been some issues with her poor sanitary conditions in the home setting and she had some leg ulcers which were treated. There was evidence of thiamine and vitamin C deficiency. She was transferred to [facility] and then developed an ESBL organism with symptoms of cystitis and was admitted and treated for that. In the meantime, a deep vein thrombosis was identified. I am seeing her since and now she presented with altered mental state, lethargy, and low-grade temperature elevation. EMS found her hypertensive and tachycardic with a temp right under 100 degrees Fahrenheit. She had been vomiting intermittently and had noticed dysuria a few days before the admission. No headaches. No dyspnea or cough. No chest pain. No back pain. No diarrhea or constipation. No bleeding. She is chronically mobility impaired. She is able to use a walker. PAST MEDICAL HISTORY: Type 2 diabetes, neuropathy, hypertension, obesity, degenerative joint disease, prior UTI with cystitis, malnutrition with thiamine and vitamin C deficiency in the past. ALLERGIES: CODEINE, DARVON, TALWIN. FAMILY HISTORY: Noncontributory. SOCIAL HISTORY: Never smoker. MEDICATIONS: At the moment, she is on; 1. Ceftriaxone. 2. Anusol. 3. Metoprolol. 4. Pantoprazole. 5. Xarelto. 6. Florastor. 7. Zoloft. PHYSICAL EXAMINATION: VITAL SIGNS: T-max 99 on admission, she was 99.2 recently. BP 130/60, heart rate 56, respirations 16, and O2 saturation 96% on 2 L nasal cannula. SKIN: With areas of maceration in the presacral region with some scaling. There is an area of bruising in the proximal left thigh. The patient has a peripheral IV access and is voiding in the diaper. No lymphadenopathy. HEENT: Ocular movements conjugate. Oral cavity with no remarkable findings. Numerous missing teeth. NECK: Supple. No jugular vein distention. LUNGS: Symmetric. Clear breath sounds. HEART: S1 and S2. Regular rate. No S3 or S4. ABDOMEN: Soft, not distended or tender. No ascites. No bladder distention. EXTREMITIES: Degenerative joint changes in the knees and ankles. She is able to move upper and lower extremities. She is weak in the lower extremities. There is trace edema in the lower extremities. Pulses are 1+ in dorsalis pedis. Plantar responses are flexor. PSYCHIATRIC: She is awake, knows her name and where she is and the answers were pretty prompt and accurate. She had a pretty good recall of her events before admission. LABORATORY DATA: White cell count starts at 14.6 and now it has normalized to 7.6; hemoglobin 11.3; MCV 105 with a normal differential. INR 1.9. Creatinine 0.78 and sodium 135, AST 21, ALT 10, alkaline phosphatase 84, bilirubin was 1.9. Albumin 2.9, globulin 4.3, TSH 0.98. The patient had an echocardiogram which showed EF 55% to 60%, dilated left atrium and moderate aortic regurg, trace tricuspid regurgitation. Chest CT angio did not show any evidence of pulmonary embolism. Venogram showed DVT present bilaterally. Microbiology with E. coli in 2 sets of blood culture and urine. Same susceptibility profile pretty much except for quinolone resistance in the specimens from the urine. In August, she had a similar E. coli retrieved from urine. ASSESSMENT: Type 2 diabetes, obesity, mobility impairment, prior episodes of cystitis, altered mental state with low-grade temperature elevation, neutrophilia, and bacteremia due to E. coli with likely pyelonephritis. DISCUSSION: Since she did have nephrolithiasis identified a few years ago which was nonobstructing, we will go ahead and repeat CT stone protocol. Switch her to Rocephin and depending on the results of the CT stone protocol, treat anywhere from 7 to 14 days. The organism is susceptible to trimethoprim and sulfamethoxazole and that might be an option for discharge planning. Job ID: [id number]
[2019-12-24 06:31] LABS: Band 7 % (5-11); Eosinophils 1 % (0-10); Hemoglobin 11.3 g/dL (12.0-16.0); Hypochromia SLIGHT = 6-15 cells (100X) (0-5/hpf); Lymphocytes 18 % (21-51); MDiff Complete? YES; Macrocytosis SLIGHT = 6-15 cells (100X) (0-5/hpf); Mean Corpuscular HGB CONC 32.9 g/dL (32.0-36.0); Mean Corpuscular Hemoglobin 34.7 pg (27.0-31.0); Mean Platelet Volume 8.1 fL (7.4-10.4); Monocytes 9 % (0-10); Neutrophil 65 % (42-75); Platelet Count 217 thou/uL (130-400); Platelet Morphology Comment Appears Adequate; RBC Distribution Width 13.6 % (11.5-14.5); Red Blood Cell (RBC) Count 3.25 mill/uL (4.20-5.40); White Blood Cell (WBC) Count 9.8 thou/uL (4.8-10.8)
[2019-12-24] MEDS: Rivaroxaban 15 MG TAB PO SCH (08:55)
[2019-12-24] MEDS: Metoprolol Tartrate 50 MG TAB PO SCH ×2 (08:55→20:33)
[2019-12-24] MEDS: Saccharomyces boulardii 250 MG CAP PO SCH (08:55)
[2019-12-24] MEDS: Pantoprazole 40 MG VIAL IVP SCH ×2 (08:56→20:33)
--- NOTE | 2019-12-24 13:27 | PDOC.HOSPP ---
- Subjective Encounter Date: 12/24/19 Encounter Time: 10:20 Subjective: Patient has no acute complaints however CT abdomen shows subcutaneous hematoma versus abscess. Based on her current condition, clinically low threshold for abdominal abscess. She is on Xarelto. Will request the general surgery for their input prior to discharge. Patient does not want to go to the rehab will arrange for home health. - Objective Vital Signs & Weight: Vital Signs (12 hours) Temp Pulse Pulse Pulse Resp BP BP 12/24/19 11:10 98.7 F 62 12 12/24/19 10:21 66 138/62 12/24/19 09:27 67 157/67 H 12/24/19 08:55 12/24/19 07:55 98.7 F 71 20 12/24/19 04:00 97.9 F 84 20 BP BP Pulse Ox 12/24/19 11:10 170/73 H 98 12/24/19 10:21 12/24/19 09:27 12/24/19 08:55 98 12/24/19 07:55 168/69 H 98 12/24/19 04:00 139/71 93 L Weight Admit Weight 231 lb 1.6 oz Weight 234 lb 0.331 oz I&O: 12/23/19 12/24/19 12/25/19 06:59 06:59 06:59 Intake Total 840 940 Output Total 1130 550 Balance -290 390 Result Diagrams: 12/24/19 04:51 12/23/19 03:21 Additional Labs: Accuchecks 12/24/19 12/24/19 12/23/19 11:02 06:19 20:53 POC Glucose 110 H 92 102 H 12/23/19 16:55 POC Glucose 89 Hospitalist ROS - Medication Medications: Active Medications Generic Name Dose Route Start Last Admin Trade Name Freq PRN Reason Stop Dose Admin Acetaminophen 650 mg 12/19/19 00:23 12/20/19 15:35 Acetaminophen 325 Mg Tab PO 650 mg Q4H PRN Administration Headache/Fever/Mild Pain (1-3) Clonidine 0.1 mg 12/23/19 08:48 12/23/19 09:53 Clonidine 0.1 Mg Tab PO 0.1 mg Q4H PRN Administration Blood Pressure, SBP>150 Ceftriaxone Sodium 2 gm/ 100 mls @ 200 mls/hr 12/23/19 15:00 12/23/19 15:04 Sodium Chloride IVPB 100 mls 1500 HARPREET Administration Metoprolol Tartrate 50 mg 12/19/19 21:00 12/24/19 08:55 Metoprolol Tartrate 50 Mg Tab PO 50 mg BID HARPREET Administration Pantoprazole Sodium 40 mg 12/21/19 09:00 12/24/19 08:56 Pantoprazole 40 Mg Vial IVP 40 mg Q12HR HARPREET Administration Rivaroxaban 15 mg 12/21/19 21:00 12/24/19 08:55 Rivaroxaban 15 Mg Tab PO 15 mg BID HARPREET Administration Saccharomyces Boulardii 250 mg 12/21/19 09:00 12/24/19 08:55 Saccharomyces Boulardii 250 Mg Cap PO 250 mg DAILY HARPREET Administration Sertraline HCl 50 mg 12/20/19 09:00 12/24/19 08:55 Sertraline Hcl 100 Mg Tab PO 50 mg DAILY HARPREET Administration Sodium Chloride 10 ml 12/20/19 19:15 12/21/19 09:23 Sodium Chloride 0.9% (Pf) 10 Ml Vial FS 10 ml PRN PRN Administration RECONSTITUTION - Exam General Appearance: NAD, awake alert Eye: PERRL ENT: normocephalic atraumatic Neck: supple Heart: RRR Respiratory: CTAB Gastrointestinal: soft, normal bowel sounds Neurological: cranial nerve grossly intact, no focal deficits Psychiatric: A&O x 3 Hosp A/P - Plan Acute renal failure Status: Acute (2) Sepsis with metabolic encephalopathy Code(s): A41.9 - SEPSIS, UNSPECIFIED ORGANISM; R65.20 - SEVERE SEPSIS WITHOUT SEPTIC SHOCK; G93.41 - METABOLIC ENCEPHALOPATHY Status: Acute (3) History of DVT (deep vein thrombosis) Code(s): Z86.718 - PERSONAL HISTORY OF OTHER VENOUS THROMBOSIS AND EMBOLISM Status: Acute (4) Morbid obesity Code(s): E66.01 - MORBID (SEVERE) OBESITY DUE TO EXCESS CALORIES Status: Chronic (5) UTI (urinary tract infection) Status: Resolved Qualifiers: Urinary tract infection type: acute cystitis Hematuria presence: without hematuria Qualified Code(s): N30.00 - Acute cystitis without hematuria --Sepsis secondary to urinary tract infection present on admission - IV Rocephin and vancomycin. Follow urine culture and blood cultures. - Brief IV hydration for acute renal failure. Monitor renal function. PT evaluation consult placed as well as case managers consult. history of DVT. -O history and physical suggested that patient is on Coumadin but I do not see Coumadin in his med rec. Also given a Lovenox DVT prophylaxis -. -Check with the patient and start Coumadin if she is taking Coumadin. 4th Bilateral DVT -Negative PE Spouse states that they cannot afford the Coumadin as needs to be checked every month and they would not be able to check the INR even monthly basis. Oral anticoagulant choices are limited given the expense. Coumadin is the preferred choice. will Discuss with the case managers about Xarelto or Eliquis. Rectal bleed with blood clot Hemoglobin stable Discussed with Dr. Murphy - ok w.. -Restarting her Lovenox. -H&H 3 more times every 6 hours. Protonix p.o. She may need IVC filter placement given the future risk for GIB and need to be on NOAC or coumadin. We will discuss with Dr. Johnson tomorrow. 5th -No further rectal bleed. -Appreciate the help from Dr. Murphy -Talk to Dr. Johnson, given the recent rectal bleed, I discussed about the IVC filter evaluation. Oral anticoagulation is preferred method for now.. If she had any recurrence of GI bleed, then we can consider placing IVC filter placement. We will start her on Coumadin this evening. Await until INR therapeutic. Also will check with the case managers whether Medicare would cover for her Xarelto or Eliquis if that is the case then we can put her on NOAC and discharge her earlier. 6th agreed for being on Xarelto. We can arrange with coupon for her to go home with a 1 month supply. However later that I heard that she is not able to move much with physical therapist supervision. Plan changed from home discharge to send her to the rehab. Reconsulted case managers for the rehab placement. Occupational Therapy consult placed. 7th She prefers to go home than to the rehab, even though she is quite debilitated. Given the complexity of the ESBL urinary tract infection and bacteremia I am consulting Dr. Guillaume for his input on the duration of the IV antibiotics vs. PO. And if needed a PICC line needs to be placed. Patient lives in the [place] vicinity. Should be able to arrange home IV antibiotic if needed. 8th CTabdomen showed heterogeneous mass in the subcutaneous adipose tissue in the right abdomen either hematoma or abscess - based on her current condition, clinically low threshold for abdominal abscess. -More likely hematoma as she also had recently occult rectal bleed with history of hemorrhoids. - She is on Xarelto. Will request the general surgery for their input prior to discharge. - Patient does not want to go to the rehab will arrange for home health. -Hemoglobin stable at 11.[address] Guillaume has seen her yesterday. CT scan negative for nephrolithiasis -Currently antibiotics changed from Merrem to ceftriaxone. Will send her home with Keflex for 14-day duration. Bactrim is also a choice
[2019-12-24] MEDS: cefTRIAXone\\ROCEPHIN 2 GM in Sodium Chloride 0.9% 100 ML IVPB SCH (15:53)
--- NOTE | 2019-12-24 23:37 | CON ---
DATE OF CONSULTATION: HISTORY OF PRESENT ILLNESS: Ms. Iveth Lance is a 74-year-old female on Xarelto, who has ecchymosis and a nodule in her right abdomen. The patient this hospitalization underwent CT abdomen and pelvis, CTA thorax revealing 4.5 cm right lower quadrant abdominal wall subcutaneous tissue. Physical exam consistent with a hematoma. The patient states she has fallen twice. She has ecchymosis overlying this area. There is no evidence of infection. Her Xarelto has been held. CTA 12/19/2019 reveals absence of PE changes, arteriosclerotic changes, atelectasis changes. ALLERGIES: CODEINE, PROPOXYPHENE. OUTPATIENT MEDICATION: 1. Omeprazole. 2. Aspirin. 3. Sertraline. 4. Metoprolol. 5. Apparently Xarelto. SOCIAL HISTORY: The patient apparently ambulatory with a walker. Alcohol, none. Tobacco, none. The patient lives with her family. She has a history of falls. PAST MEDICAL HISTORY: Hypertension, morbid obesity, arthritis, prediabetes, history of DVT on Xarelto, UTI history and anxiety/depression history. PHYSICAL EXAMINATION: VITAL SIGNS: Height 5 foot 4, 234 pounds, 40 BMI, 97.8 degrees, 150/69. HEAD, EARS, EYES, NOSE, THROAT: Unremarkable. LUNGS: Clear to auscultation. No wheezing. CARDIAC: Regular rate and rhythm without murmur or gallop. ABDOMEN: Obese, soft, ecchymosis in right lower quadrant above her groin crease, a palpable mass consistent with CAT scan finding in the subcutaneous tissues. No evidence of infection. ASSESSMENT AND PLAN: Hematoma, right lower quadrant abdominal wall. No intervention necessary. I will see her as needed this hospitalization. Please call, if necessary. Job ID: [id number]
[2019-12-25 01:23] LABS: Hemoglobin 13.4 g/dL (12.0-16.0)
--- NOTE | 2019-12-25 01:41 | PDOC.EVN ---
Event Note - Event Note Event Note: Was informed by nursing that patient was having bright red blood in her urine and just had a bowel movement that had bright red blood on it. Earlier tonight her urine was an hillary color but has since become the brighter bloody red. Placed a hold on her xarelto and ordered a stat H&H and another for later in the morning to trend her. Patient asymptomatic at this time.
[2019-12-25 04:38] LABS: #Basophils 0.1 thou/uL (0.0-0.2); #Eosinphils 0.4 thou/uL (0.0-0.7); #Monocytes 0.5 thou/uL (0.11-0.59); #Neutrophils 6.4 thou/uL (1.40-6.50); %Basophils 0.6 % (0.0-1.0); %Eosinophils 3.8 % (0.0-10.0); %Lymphocytes 21.2 % (21.0-51.0); %Monocytes 5.5 % (0.0-10.0); Mean Corpuscular HGB CONC 33.6 g/dL (32.0-36.0); Mean Corpuscular Hemoglobin 35.2 pg (27.0-31.0); Mean Platelet Volume 7.2 fL (7.4-10.4); Platelet Count 240 thou/uL (130-400); RBC Distribution Width 13.4 % (11.5-14.5); White Blood Cell (WBC) Count 9.3 thou/uL (4.8-10.8)
[2019-12-25 05:00] LABS: Anion Gap 10 mmol/L (10-20); BUN (Urea Nitrogen) 11 mg/dL (9.8-20.1); Calc. Creatinine Clearance 105 mL/min (70-130); Calcium 9.3 mg/dL (7.8-10.44); Carbon Dioxide 26 mmol/L (23-31); Chloride 105 mmol/L (98-107); Estimated GFR-MDRD 71; Glucose 94 mg/dL (83-110); Potassium 3.3 mmol/L (3.5-5.1); Sodium 138 mmol/L (136-145)
[2019-12-25] MEDS ORDERED: Potassium Citrate 10 MEQ TAB PO SCH (09:00)
[2019-12-25] MEDS: Metoprolol Tartrate 50 MG TAB PO SCH ×2 (09:13→20:13)
[2019-12-25] MEDS: Pantoprazole 40 MG VIAL IVP SCH ×2 (09:13→20:14)
[2019-12-25] MEDS: Saccharomyces boulardii 250 MG CAP PO SCH (09:13)
--- NOTE | 2019-12-25 14:19 | PDOC.HOSPP ---
- Subjective Encounter Date: 12/25/19 Encounter Time: 09:00 Subjective: Patient is doing well. She has no acute complaints. She does have a hematuria. Events noted from last night she has a bleed per rectum as well as urine. This is a second episode of her bleeding episode. Vascular surgery ray Dr. Ann. I will reduce the Xarelto dose and monitor her. She has a recent blood culture December 17 growing E. coli with that she would be at risk for any IVC filter evaluation at this point in time. Will reduce the dose of Xarelto and see whether that would help in stopping the recurrent bleed, as suggested by the vascular surgery. - Objective Vital Signs & Weight: Vital Signs (12 hours) Temp Pulse Resp BP Pulse Ox 12/25/19 12:00 98.2 F 76 20 139/66 95 12/25/19 08:00 97.8 F 75 16 166/72 H 97 12/25/19 03:14 98.7 F 81 19 148/61 H 92 L Weight Admit Weight 231 lb 1.6 oz Weight 235 lb 4.8 oz I&O: 12/24/19 12/25/19 12/26/19 06:59 06:59 06:59 Intake Total 940 1240 500 Output Total 550 550 Balance 390 690 500 Result Diagrams: 12/25/19 04:15 12/25/19 04:15 Additional Labs: Accuchecks 12/25/19 12/25/19 12/24/19 10:38 05:25 21:10 POC Glucose 85 90 99 12/24/19 16:31 POC Glucose 87 Hospitalist ROS - Medication Medications: Active Medications Generic Name Dose Route Start Last Admin Trade Name Freq PRN Reason Stop Dose Admin Acetaminophen 650 mg 12/19/19 00:23 12/20/19 15:35 Acetaminophen 325 Mg Tab PO 650 mg Q4H PRN Administration Headache/Fever/Mild Pain (1-3) Clonidine 0.1 mg 12/23/19 08:48 12/23/19 09:53 Clonidine 0.1 Mg Tab PO 0.1 mg Q4H PRN Administration Blood Pressure, SBP>150 Ceftriaxone Sodium 2 gm/ 100 mls @ 200 mls/hr 12/23/19 15:00 12/24/19 15:53 Sodium Chloride IVPB 100 mls 1500 HARPREET Administration Metoprolol Tartrate 50 mg 12/19/19 21:00 12/25/19 09:13 Metoprolol Tartrate 50 Mg Tab PO 50 mg BID HARPREET Administration Pantoprazole Sodium 40 mg 12/21/19 09:00 12/25/19 09:13 Pantoprazole 40 Mg Vial IVP 40 mg Q12HR HARPREET Administration Saccharomyces Boulardii 250 mg 12/21/19 09:00 12/25/19 09:13 Saccharomyces Boulardii 250 Mg Cap PO 250 mg DAILY HARPREET Administration Sertraline HCl 50 mg 12/20/19 09:00 12/25/19 09:13 Sertraline Hcl 100 Mg Tab PO 50 mg DAILY HARPREET Administration Sodium Chloride 10 ml 12/20/19 19:15 12/21/19 09:23 Sodium Chloride 0.9% (Pf) 10 Ml Vial FS 10 ml PRN PRN Administration RECONSTITUTION - Exam General Appearance: NAD, awake alert Eye: PERRL ENT: normocephalic atraumatic Neck: supple Heart: RRR Respiratory: CTAB Gastrointestinal: soft, normal bowel sounds Neurological: no focal deficits Psychiatric: A&O x 3 Hosp A/P - Plan Acute renal failure Status: Acute (2) Sepsis with metabolic encephalopathy Code(s): A41.9 - SEPSIS, UNSPECIFIED ORGANISM; R65.20 - SEVERE SEPSIS WITHOUT SEPTIC SHOCK; G93.41 - METABOLIC ENCEPHALOPATHY Status: Acute (3) History of DVT (deep vein thrombosis) Code(s): Z86.718 - PERSONAL HISTORY OF OTHER VENOUS THROMBOSIS AND EMBOLISM Status: Acute (4) Morbid obesity Code(s): E66.01 - MORBID (SEVERE) OBESITY DUE TO EXCESS CALORIES Status: Chronic (5) UTI (urinary tract infection) Status: Resolved Qualifiers: Urinary tract infection type: acute cystitis Hematuria presence: without hematuria Qualified Code(s): N30.00 - Acute cystitis without hematuria --Sepsis secondary to urinary tract infection present on admission - IV Rocephin and vancomycin. Follow urine culture and blood cultures. - Brief IV hydration for acute renal failure. Monitor renal function. PT evaluation consult placed as well as director of casework services consult. history of DVT. -O history and physical suggested that patient is on Coumadin but I do not see Coumadin in his med rec. Also given a Lovenox DVT prophylaxis -. -Check with the patient and start Coumadin if she is taking Coumadin. 4th Bilateral DVT -Negative PE Spouse states that they cannot afford the Coumadin as needs to be checked every month and they would not be able to check the INR even monthly basis. Oral anticoagulant choices are limited given the expense. Coumadin is the preferred choice. will Discuss with the director of casework services about Xarelto or Eliquis. Rectal bleed with blood clot Hemoglobin stable Discussed with Dr. Murphy - ok w.. -Restarting her Lovenox. -H&H 3 more times every 6 hours. Protonix p.o. She may need IVC filter placement given the future risk for GIB and need to be on NOAC or coumadin. We will discuss with Dr. Johnson tomorrow. 5th -No further rectal bleed. -Appreciate the help from Dr. Murphy -Talk to Dr. Johnson, given the recent rectal bleed, I discussed about the IVC filter evaluation. Oral anticoagulation is preferred method for now.. If she had any recurrence of GI bleed, then we can consider placing IVC filter placement. We will start her on Coumadin this evening. Await until INR therapeutic. Also will check with the director of casework services whether Medicare would cover for her Xar elto or Eliquis if that is the case then we can put her on NOAC and discharge her earlier. 6th agreed for being on Xarelto. We can arrange with coupon for her to go home with a 1 month supply. However later that I heard that she is not able to move much with physical therapist supervision. Plan changed from home discharge to send her to the rehab. Reconsulted director of casework services for the rehab placement. Occupational Therapy consult placed. 7th She prefers to go home than to the rehab, even though she is quite debilitated. Given the complexity of the ESBL urinary tract infection and bacteremia I am consulting Dr. Guillaume for his input on the duration of the IV antibiotics vs. PO. And if needed a PICC line needs to be placed. Patient lives in the [place] vicinity. Should be able to arrange home IV antibiotic if needed. 8th CTabdomen showed heterogeneous mass in the subcutaneous adipose tissue in the right abdomen either hematoma or abscess - based on her current condition, clinically low threshold for abdominal abscess. -More likely hematoma as she also had recently occult rectal bleed with history of hemorrhoids. - She is on Xarelto. Will request the general surgery for their input prior to discharge. - Patient does not want to go to the rehab will arrange for home health. -Hemoglobin stable at 11.[address] Guillaume has seen her yesterday. CT scan negative for nephrolithiasis -Currently antibiotics changed from Merrem to ceftriaxone. Will send her home with Keflex for 14-day duration. Bactrim is also a choice 9th Events noted from last night she has a bleed per rectum as well as urine. This is a second episode of her bleeding episode being on anticoagulant. D/w Vascular surgery Dr. Ann. I will reduce the Xarelto dose and monitor her. She has a recent blood culture December 17 growing E. coli with that she would be at risk for any IVC filter evaluation at this point in time. Also No true indication for IVC filter placement at this time given she has no PE. Will reduce the dose of Xarelto and see whether that would help in stopping the recurrent bleed, as suggested by the vascular surgery. We cannot completely stop the anticoagulant as she is a high risk patient being obese and mostly bedbound and bilateral DVT. will put her on eliquis bid [cr pk] and see whether bleed will be reduced.
--- NOTE | 2019-12-25 16:33 | ULT ---
Bilateral renal ultrasound CLINICAL INDICATION: Hematuria. COMPARISON: 05/06/[address] abdomen on 12/23/2019 FINDINGS: Right kidney: There is no evidence of a renal mass, renal calculus, or hydronephrosis seen. The right kidney measures 12.5 cm x 4.3 cm. Left kidney: Atrophic in appearance with renal cortical thinning. No hydronephrosis is present. This corresponds to findings on CT abdomen. Multiple left renal calculi seen on recent CT abdomen are not visualized on sonographic evaluation. The left kidney is difficult to adequately evaluate due to small size.The left kidney measures 8.9 cm x 3.5 cm. Urinary bladder: Incompletely distended. IMPRESSION: 1. No evidence of hydronephrosis bilaterally. 2. Atrophic left kidney. Left renal calculi seen on CT examination are unable to be visualized on son ographic evaluation. 3. Normal appearance of right kidney.
[2019-12-25] MEDS ORDERED: Rivaroxaban 15 MG TAB PO SCH (17:00)
[2019-12-25] MEDS ORDERED: cefTRIAXone\\ROCEPHIN 2 GM in Sodium Chloride 0.9% 100 ML IVPB SCH (18:00)
[2019-12-25] MEDS: cefTRIAXone\\ROCEPHIN 2 GM in Sodium Chloride 0.9% 100 ML IVPB SCH (18:56)
[2019-12-25] MEDS: Apixaban 5 MG TAB PO SCH (20:13)
[2019-12-26 04:21] LABS: #Eosinphils 0.3 thou/uL (0.0-0.7); #Lymphocytes 1.9 thou/uL (1.20-3.40); #Monocytes 0.6 thou/uL (0.11-0.59); #Neutrophils 5.6 thou/uL (1.40-6.50); %Basophils 0.2 % (0.0-1.0); %Eosinophils 3.6 % (0.0-10.0); %Lymphocytes 22.5 % (21.0-51.0); %Neutrophils 66.8 % (42.0-75.0); Hemoglobin 11.7 g/dL (12.0-16.0); Mean Corpuscular HGB CONC 33.6 g/dL (32.0-36.0); Mean Corpuscular Hemoglobin 35.3 pg (27.0-31.0); Mean Platelet Volume 7.5 fL (7.4-10.4); Platelet Count 274 thou/uL (130-400); RBC Distribution Width 13.5 % (11.5-14.5); Red Blood Cell (RBC) Count 3.31 mill/uL (4.20-5.40); White Blood Cell (WBC) Count 8.4 thou/uL (4.8-10.8)
[2019-12-26 04:42] LABS: Anion Gap 12 mmol/L (10-20); BUN (Urea Nitrogen) 10 mg/dL (9.8-20.1); Calc. Creatinine Clearance 109 mL/min (70-130); Calcium 9.3 mg/dL (7.8-10.44); Carbon Dioxide 25 mmol/L (23-31); Chloride 105 mmol/L (98-107); Estimated GFR-MDRD 74; Glucose 86 mg/dL (83-110); Potassium 3.5 mmol/L (3.5-5.1); Sodium 138 mmol/L (136-145)
--- NOTE | 2019-12-26 06:57 | CON ---
DATE OF CONSULTATION: 12/25/2019 REQUESTING PHYSICIAN: Judd Rogel MD CHIEF COMPLAINT: Deep venous thrombosis. HISTORY OF PRESENT ILLNESS: The patient is a 74-year-old woman admitted about a week ago with lethargy and low-grade fever. She had been developing some nausea and vomiting and on presentation in the emergency room, she was slightly hypertensive, but she was tachycardic and had a temperature that initially was 102.1 and climbed to 102.8 before beginning to defervesce. She had dirty urine, highly suggestive of urinary tract infection. Urine culture grew E coli that was sensitive to Rocephin with which she has been treated. She had blood cultures that grew an E coli, also sensitive to Rocephin, but had slightly different pattern of sensitivities on its antibiogram. Repeat blood cultures drawn the morning of the were no growth at 48 hours. No updates have been entered in the computer, but they have not yet been signed out as negative. 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 She has been off Coumadin because of financial difficulties and not being able to afford it since coming out of the intermediate about a year ago. Given this history, ultrasonography on her legs was done which showed noncompressibility at the popliteal level on the right and in the mid thigh level in the superficial femoral vein on the left. Thrombus was seen at those levels, but this is considerably less extent of DVTs than at the time of her original diagnosis. It is unclear to me in reviewing the chart, the exact timeline and reasons behind the scans but on the , the patient receives CT scan of her abdomen and pelvis, which showed a subcutaneous mass in her right lower quadrant. The patient does not complain of any localized pain and has not had any fever. She does not recall having fallen. She thinks she may have gotten subcutaneous injections at that site. Dr. Patton, who saw her for this, was able to elicit a history or find documentation of two falls, however. She has had some hematochezia that has been long attributed to hemorrhoids according to her and Dr. Murphy who saw her in consultation, apparently finds that a plausible explanation but has recommended colonoscopy which she has refused. She has had some hematuria and currently her anticoagulation has been withheld. PAST MEDICAL HISTORY: Significant for hypertension, morbid obesity, and a previous episode of urosepsis and deep venous thrombosis. HOME MEDICATIONS: 1. Omeprazole. 2. Baby aspirin. 3. Zoloft. 4. Lopressor. PHYSICAL EXAMINATION: VITAL SIGNS: Her temperature is 98.2 and the highest her temperature has been since admission to the [facility] was on the morning of the at 99.7, heart rate is 76, blood pressure 139/66. She is 5 feet 4 inches and weighs 235 pounds, is slightly hirsute. She appears older than her stated age. CHEST: She has clear breath sounds. HEART: Regular rate and rhythm. ABDOMEN: Obese abdomen, soft, nontender. She has bruising and basically a baseball or perhaps a little bit smaller size, firm, nontender mass deep to that bruising in the right lower quadrant. No surrounding cellulitic changes. No fluctuance. No tenderness. EXTREMITIES: She has no obvious lower extremity swelling and denies any leg pain. DIAGNOSTIC STUDIES: An echocardiogram showed an LVEF of 55% to 60%. Her CT scan of the chest showed no evidence of pulmonary embolism. Her hemoglobin has been stable from about 11.5 to 13.5 and this morning was 12.0, platelet count is 240,000. BUN was 11, creatinine 0.79. IMPRESSION AND RECOMMENDATIONS: I think that while it may be difficult to prove that it is entirely likely that the deep venous thromboses noted on her ultrasound represent residual thrombus from her previous deep venous thrombosis, she has not had any pulmonary emboli and clinically, she does not have any leg pain or swelling to suggest that these deep venous thromboses are recurrent deep venous thromboses. She has had episodes of urosepsis in the past and had positive blood cultures related to urinary tract infection this hospitalization. Repeat blood cultures so far have not grown anything, but she is still on antibiotic therapy. She really does not meet any of the classic criteria for vena cava filter placement and were it as simple a matter as the presence of a deep venous thrombosis and contraindication to anticoagulation, filters are placed in that setting in spite of no pulmonary embolism on a fairly regular basis. However, with recent positive blood cultures and some question as to whether these are really new deep venous thromboses, I would be reluctant to place an intravascular foreign body. One could probably just simply withhold her anticoagulation for the time being. Perhaps a lower dose of oral anticoagulants or a different oral anticoagulant could be used if one felt compelled to anticoagulate her. Job ID: [id number]
[2019-12-26] MEDS: Pantoprazole 40 MG VIAL IVP SCH ×2 (08:37→20:33)
[2019-12-26] MEDS: Apixaban 5 MG TAB PO SCH ×2 (08:37→20:31)
[2019-12-26] MEDS: Saccharomyces boulardii 250 MG CAP PO SCH (08:37)
[2019-12-26] MEDS: Metoprolol Tartrate 50 MG TAB PO SCH ×2 (08:37→20:31)
[2019-12-26] MEDS ORDERED: Sulfameth/Trimethoprim DS 800-160mg TAB PO SCH (10:00)
--- NOTE | 2019-12-26 13:51 | PDOC.HOSPP ---
- Subjective Encounter Date: 12/26/19 Encounter Time: 09:30 Subjective: Patient is resting comfortably. Talked to the nurse. She did had a blood in her stool. She is switched to Eliquis twice daily at 5 mg still it appears that she has some ongoing blood. - Objective Vital Signs & Weight: Vital Signs (12 hours) Temp Pulse Resp BP Pulse Ox 12/26/19 11:25 98.4 F 76 18 146/68 H 96 12/26/19 07:45 98.3 F 78 18 144/65 H 96 12/26/19 03:26 98.2 F 64 12 155/68 H 95 Weight Admit Weight 231 lb 1.6 oz Weight 232 lb 12.8 oz I&O: 12/25/19 12/26/19 12/27/19 06:59 06:59 06:59 Intake Total 1240 1290 Output Total 550 Balance 690 1290 Result Diagrams: 12/26/19 03:23 12/26/19 03:23 Additional Labs: Accuchecks 12/26/19 12/26/19 12/25/19 10:55 05:58 20:21 POC Glucose 106 H 92 106 H 12/25/19 17:01 POC Glucose 108 H Hospitalist ROS - Medication Medications: Active Medications Generic Name Dose Route Start Last Admin Trade Name Freq PRN Reason Stop Dose Admin Acetaminophen 650 mg 12/19/19 00:23 12/20/19 15:35 Acetaminophen 325 Mg Tab PO 650 mg Q4H PRN Administration Headache/Fever/Mild Pain (1-3) Clonidine 0.1 mg 12/23/19 08:48 12/23/19 09:53 Clonidine 0.1 Mg Tab PO 0.1 mg Q4H PRN Administration Blood Pressure, SBP>150 Metoprolol Tartrate 50 mg 12/19/19 21:00 12/26/19 08:37 Metoprolol Tartrate 50 Mg Tab PO 50 mg BID HARPREET Administration Pantoprazole Sodium 40 mg 12/21/19 09:00 12/26/19 08:37 Pantoprazole 40 Mg Vial IVP 40 mg Q12HR HARPREET Administration Saccharomyces Boulardii 250 mg 12/21/19 09:00 12/26/19 08:37 Saccharomyces Boulardii 250 Mg Cap PO 250 mg DAILY HARPREET Administration Sertraline HCl 50 mg 12/20/19 09:00 12/26/19 08:37 Sertraline Hcl 100 Mg Tab PO 50 mg DAILY HARPREET Administration Sodium Chloride 10 ml 12/20/19 19:15 12/21/19 09:23 Sodium Chloride 0.9% (Pf) 10 Ml Vial FS 10 ml PRN PRN Administration RECONSTITUTION - Exam General Appearance: NAD, awake alert Eye: PERRL ENT: normocephalic atraumatic Neck: supple Heart: RRR, normal peripheral pulses Respiratory: CTAB, normal chest expansion Gastrointestinal: soft, normal bowel sounds Neurological: no focal deficits Psychiatric: A&O x 3 Hosp A/P - Plan for more detailed progress note, see yesterday's - date-zamorano Acute renal failure Status: Acute (2) Sepsis with metabolic encephalopathy Code(s): A41.9 - SEPSIS, UNSPECIFIED ORGANISM; R65.20 - SEVERE SEPSIS WITHOUT SEPTIC SHOCK; G93.41 - METABOLIC ENCEPHALOPATHY Status: Acute (3) History of DVT (deep vein thrombosis) Code(s): Z86.718 - PERSONAL HISTORY OF OTHER VENOUS THROMBOSIS AND EMBOLISM Status: Acute (4) Morbid obesity Code(s): E66.01 - MORBID (SEVERE) OBESITY DUE TO EXCESS CALORIES Status: Chronic (5) UTI (urinary tract infection) Status: Resolved Qualifiers: Urinary tract infection type: acute cystitis Hematuria presence: without hematuria Qualified Code(s): N30.00 - Acute cystitis without hematuria - Bilateral DVT -Negative PE -Vascular surgery consulted no IVC filter placement at this point. Rectal bleed with blood clot -Appreciate the help from Dr. Murphy -Thought to be due to hemorrhoids exacerbated with anticoagulant -Plan for outpatient colonoscopy -But if the bleeding continues please reconsult them for possible scope as we cannot discharge this patient if she has ongoing rectal bleed. And she needs to be on anticoagulant. -Started with Xarelto discontinued with the curb-side counseling with hematology and possibly to reduce the dose switch to Eliquis Eliquis tried with the 5 twice daily still has some rectal bleed so I reduced the dose to 2.5 mg twice a day. -He needs ongoing close monitoring and if she is stable without any further bleeding a day or 2 likely can discharge home -she does not want to go to the rehab with CTabdomen showed heterogeneous mass in the subcutaneous adipose tissue in the right abdomen either hematoma or abscess -General surgery looked at her -Hematoma--just monitor. Dr. Guillaume has seen her yesterday. -Recommendation as below -History of ESBL UTI and previous blood culture growing E. coli. A repeat blood culture negative CT scan negative for nephrolithiasis -Will send her home with Keflex for 14-day duration. Bactrim is also a choice
[2019-12-26] MEDS ORDERED: cefTRIAXone\\ROCEPHIN 2 GM in Sodium Chloride 0.9% 100 ML IVPB SCH (16:00)
[2019-12-26] MEDS: Sulfameth/Trimethoprim DS 800-160mg TAB PO SCH (20:31)
[2019-12-27] MEDS ORDERED: Diabetic Tussin 200 MG/10 ML UDCUP PO PRN (07:41)
[2019-12-27] MEDS ORDERED: Senokot S 8.6-50 MG TAB PO PRN (07:41)
[2019-12-27] MEDS ORDERED: Cepastat Lozenges 1 LOZ PO PRN (07:41)
[2019-12-27] MEDS ORDERED: Ondansetron ODT 4 MG TAB PO PRN (07:41)
[2019-12-27] MEDS ORDERED: Loperamide HCl 2 MG CAP PO PRN (07:41)
[2019-12-27] MEDS ORDERED: Sodium Chloride 0.65% Nasal 44 ML BOT EA NARE PRN (07:41)
[2019-12-27] MEDS ORDERED: Loratadine 10 MG TAB PO PRN (07:41)
[2019-12-27] MEDS ORDERED: Bisacodyl 5 MG TAB PO PRN (07:41)
[2019-12-27] MEDS ORDERED: Calcium Carbonate 500 MG ChewTAB PO PRN (07:41)
[2019-12-27] MEDS: Folic Acid 1 MG TAB PO SCH (08:48)
[2019-12-27] MEDS: Apixaban 5 MG TAB PO SCH (08:49)
[2019-12-27] MEDS: Cyanocobalamin (Vitamin B-12) 1,000 MCG TAB PO SCH (08:49)
[2019-12-27] MEDS: Metoprolol Tartrate 50 MG TAB PO SCH ×2 (08:50→19:45)
[2019-12-27] MEDS: Sulfameth/Trimethoprim DS 800-160mg TAB PO SCH ×2 (08:51→19:45)
[2019-12-27] MEDS: Saccharomyces boulardii 250 MG CAP PO SCH (08:51)
[2019-12-27] MEDS: Pantoprazole 40 MG VIAL IVP SCH ×2 (08:52→19:45)
--- NOTE | 2019-12-27 11:12 | PDOC.HOSPP ---
- Subjective Encounter Date: 12/27/19 Encounter Time: 07:20 Subjective: Patient seen and examined bedside today, patient is very weak, - Objective Vital Signs & Weight: Vital Signs (12 hours) Temp Pulse Resp BP Pulse Ox 12/27/19 07:34 98.1 F 77 18 165/72 H 96 12/27/19 03:23 98.9 F 72 18 151/69 H 96 Weight Admit Weight 231 lb 1.6 oz Weight 236 lb 1.6 oz I&O: 12/26/19 12/27/19 12/28/19 06:59 06:59 06:59 Intake Total 1290 1200 Output Total 225 Balance 1290 975 Result Diagrams: 12/26/19 03:23 12/26/19 03:23 Additional Labs: Accuchecks 12/27/19 12/27/19 12/26/19 11:03 05:46 21:01 POC Glucose 112 H 94 111 H Hospitalist ROS - Review of Systems Constitutional: reports: weakness. denies: fever, chills, sweats, malaise, other Eyes: denies: pain, vision change, conjunctivae inflammation, eyelid inflammat ion, redness, other ENT: denies: ear pain, ear discharge, nose pain, nose discharge, nose congestion, mouth pain, mouth swelling, throat pain, throat swelling, other Respiratory: denies: cough, dry, shortness of breath, hemoptysis, SOB with excertion, pleuritic pain, sputum, wheezing, other Cardiovascular: denies: chest pain, palpitations, orthopnea, paroxysmal noc. dyspnea, edema, light headedness, other Gastrointestinal: denies: nausea, vomiting, abdominal pain, diarrhea, constipation, melena, hematochezia, other Genitourinary: denies: dysuria, frequency, incontinence, hematuria, retention, other Musculoskeletal: denies: neck pain, shoulder pain, arm pain, back pain, hand pain, leg pain, foot pain, other Skin: denies: rash, lesions, matt, bruising, other - Medication Medications: Active Medications Generic Name Dose Route Start Last Admin Trade Name Freq PRN Reason Stop Dose Admin Acetaminophen 650 mg 12/19/19 00:23 12/20/19 15:35 Acetaminophen 325 Mg Tab PO 650 mg Q4H PRN Administration Headache/Fever/Mild Pain (1-3) Apixaban 2.5 mg 12/26/19 21:00 12/27/19 08:49 Apixaban 5 Mg Tab PO 2.5 mg BID HARPREET Administration Clonidine 0.1 mg 12/23/19 08:48 12/23/19 09:53 Clonidine 0.1 Mg Tab PO 0.1 mg Q4H PRN Administration Blood Pressure, SBP>150 Cyanocobalamin 1,000 mcg 12/27/19 09:00 12/27/19 08:49 Cyanocobalamin (Vitamin B-12) 1,000 Mcg Tab PO 1,000 mcg DAILY HARPREET Administration Folic Acid 1 mg 12/27/19 09:00 12/27/19 08:48 Folic Acid 1 Mg Tab PO 1 mg DAILY HARPREET Administration Metoprolol Tartrate 50 mg 12/19/19 21:00 12/27/19 08:50 Metoprolol Tartrate 50 Mg Tab PO 50 mg BID HARPREET Administration Pantoprazole Sodium 40 mg 12/21/19 09:00 12/27/19 08:52 Pantoprazole 40 Mg Vial IVP 40 mg Q12HR HARPREET Administration Saccharomyces Boulardii 250 mg 12/21/19 09:00 12/27/19 08:51 Saccharomyces Boulardii 250 Mg Cap PO 250 mg DAILY HARPREET Administration Sertraline HCl 50 mg 12/20/19 09:00 12/27/19 08:51 Sertraline Hcl 100 Mg Tab PO 50 mg DAILY HARPREET Administration Sodium Chloride 10 ml 12/20/19 19:15 12/21/19 09:23 Sodium Chloride 0.9% (Pf) 10 Ml Vial FS 10 ml PRN PRN Administration RECONSTITUTION Trimethoprim/Sulfamethoxazole 1 tab 12/26/19 21:00 12/27/19 08:51 Sulfameth/Trimethoprim Ds 800-160mg Tab PO 01/08/20 23:00 1 tab BID HARPREET Administration - Exam General Appearance: NAD, awake alert Eye: PERRL, anicteric sclera ENT: normocephalic atraumatic, no oropharyngeal lesions Neck: supple, symmetric, no JVD, no thyromegaly Heart: RRR, no murmur, no gallops, no rubs Respiratory: CTAB, no wheezes, no rales, no ronchi Gastrointestinal: soft, non-tender, non-distended, normal bowel sounds Extremities: no cyanosis, no clubbing, no edema Skin: normal turgor, no lesions Neurological: no new deficit Psychiatric: normal affect, normal behavior Hosp A/P (1) Sepsis Code(s): A41.9 - SEPSIS, UNSPECIFIED ORGANISM Status: Resolved Qualifiers: Sepsis type: Escherichia coli Sepsis acute organ dysfunction status: with acute organ dysfunction Severe sepsis acute organ dysfunction type: encephalopathy Severe sepsis shock status: without septic shock Qualified Code(s): A41.51 - Sepsis due to Escherichia coli [E. coli]; R65.20 - Severe sepsis without septic shock; G93.41 - Metabolic encephalopathy (2) UTI (urinary tract infection) Status: Acute Qualifiers: Urinary tract infection type: acute cystitis Hematuria presence: without hematuria Qualified Code(s): N30.00 - Acute cystitis without hematuria (3) Morbid obesity Code(s): E66.01 - MORBID (SEVERE) OBESITY DUE TO EXCESS CALORIES Status: Chronic (4) Physical deconditioning Code(s): R53.81 - OTHER MALAISE Status: Chronic (5) Protein-calorie malnutrition, moderate Code(s): E44.0 - MODERATE PROTEIN-CALORIE MALNUTRITION Status: Chronic (6) Macrocytic anemia Code(s): D53.9 - NUTRITIONAL ANEMIA, UNSPECIFIED Status: Chronic (7) Rectal bleed Code(s): K62.5 - HEMORRHAGE OF ANUS AND RECTUM Status: Acute (8) DVT (deep venous thrombosis) Code(s): I82.409 - ACUTE EMBOLISM AND THOMBOS UNSP DEEP VN UNSP LOWER EXTREMITY Status: Chronic Qualifiers: DVT location: lower extremity Chronicity: chronic Laterality: unspecified laterality (9) Chronic anticoagulation Code(s): Z79.01 - LONGTERM (CURRENT) USE OF ANTICOAGULANTS Status: Chronic - Plan old records reviewed/req, 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 coli continue Bactrim DS which has been started yesterday Patient does not need any telemetry monitoring we will transfer her to medical floor and discontinue telemetry Patient does not have any further rectal bleed, her H&H remained stable, will monitor 1 more day Regarding DVT continue low-dose of Eliquis therapy, no need of IVC filter Medication reviewed and continue provide symptomatic and supportive care Patient may need placement evaluation
[2019-12-27] MEDS: cloNIDine 0.1 MG TAB PO PRN ×2 (11:35→23:28)
[2019-12-27] MEDS ORDERED: NIFEdipine XL 30 MG TAB PO SCH (14:00)
[2019-12-27] MEDS: Apixaban 2.5 MG TAB PO SCH (19:45)
[2019-12-28 03:46] LABS: Hemoglobin 11.5 g/dL (12.0-16.0); Platelet Count 282 thou/uL (130-400)
[2019-12-28] MEDS: Folic Acid 1 MG TAB PO SCH (09:42)
[2019-12-28] MEDS: Metoprolol Tartrate 50 MG TAB PO SCH ×2 (09:42→20:55)
[2019-12-28] MEDS: Cyanocobalamin (Vitamin B-12) 1,000 MCG TAB PO SCH (09:42)
[2019-12-28] MEDS: NIFEdipine XL 30 MG TAB PO SCH (09:42)
[2019-12-28] MEDS: Saccharomyces boulardii 250 MG CAP PO SCH (09:43)
[2019-12-28] MEDS: Cephalexin 250 MG CAP PO SCH ×3 (09:43→20:54)
[2019-12-28] MEDS: Apixaban 2.5 MG TAB PO SCH ×2 (09:43→20:54)
--- NOTE | 2019-12-28 10:49 | PDOC.HOSPP ---
- Subjective Encounter Date: 12/28/19 Encounter Time: 07:00 Subjective: Patient seen and examined bedside today, patient is physically very weak, she has not done any therapy yet, patient reports that today her cannot come to see her because of financial reason, patient continued to refuse to go to detention home. She does not have any PCP so it is very difficult to arrange home health as well. Nurses noticed blood in her diaper. She is using 2 L nasal cannula oxygen - Objective Vital Signs & Weight: Vital Signs (12 hours) Temp Pulse Resp BP BP Pulse Ox 12/28/19 07:29 98.3 F 70 16 163/73 H 92 L 12/28/19 04:00 98.0 F 68 24 H 146/67 H 95 12/28/19 01:12 130/62 12/27/19 23:28 174/70 H Weight Admit Weight 231 lb 1.6 oz Weight 236 lb 1.6 oz I&O: 12/27/19 12/28/19 12/29/19 06:59 06:59 06:59 Intake Total 1200 900 Output Total 225 Balance 975 900 Result Diagrams: 12/28/19 03:37 12/26/19 03:23 Additional Labs: Accuchecks 12/28/19 12/27/19 12/27/19 05:55 20:52 17:37 POC Glucose 89 100 92 12/27/19 11:03 POC Glucose 112 H Hospitalist ROS - Review of Systems Constitutional: reports: weakness. denies: fever, chills, sweats, malaise, other ENT: denies: ear pain, ear discharge, nose pain, nose discharge, nose congestion, mouth pain, mouth swelling, throat pain, throat swelling, other Respiratory: denies: cough, dry, shortness of breath, hemoptysis, SOB with excertion, pleuritic pain, sputum, wheezing, other Cardiovascular: denies: chest pain, palpitations, orthopnea, paroxysmal noc. dyspnea, edema, light headedness, other Gastrointestinal: denies: nausea, vomiting, abdominal pain, diarrhea, constipation, melena, hematochezia, other Genitourinary: reports: hematuria. denies: dysuria, frequency, incontinence, retention, other Musculoskeletal: denies: neck pain, shoulder pain, arm pain, back pain, hand pain, leg pain, foot pain, other - Medication Medications: Active Medications Generic Name Dose Route Start Last Admin Trade Name Freq PRN Reason Stop Dose Admin Acetaminophen 650 mg 12/19/19 00:23 12/20/19 15:35 Acetaminophen 325 Mg Tab PO 650 mg Q4H PRN Administration Headache/Fever/Mild Pain (1-3) Apixaban 2.5 mg 12/27/19 21:00 12/28/19 09:43 Apixaban 2.5 Mg Tab PO 2.5 mg BID HARPREET Administration Cephalexin 500 mg 12/28/19 09:00 12/28/19 09:43 Cephalexin 250 Mg Cap PO 500 mg TID HARPREET Administration Clonidine 0.1 mg 12/23/19 08:48 12/27/19 23:28 Clonidine 0.1 Mg Tab PO 0.1 mg Q4H PRN Administration Blood Pressure, SBP>150 Cyanocobalamin 1,000 mcg 12/27/19 09:00 12/28/19 09:42 Cyanocobalamin (Vitamin B-12) 1,000 Mcg Tab PO 1,000 mcg DAILY HARPREET Administration Folic Acid 1 mg 12/27/19 09:00 12/28/19 09:42 Folic Acid 1 Mg Tab PO 1 mg DAILY HARPREET Administration Metoprolol Tartrate 50 mg 12/19/19 21:00 12/28/19 09:42 Metoprolol Tartrate 50 Mg Tab PO 50 mg BID HRAPREET Administration Metoprolol Tartrate 5 mg 12/23/19 08:48 12/27/19 12:53 Metoprolol Tartrate 5 Mg/5 Ml Vial IVP 5 mg Q4H PRN Administration for HR > 90 or SBP>150 Nifedipine 30 mg 12/28/19 09:00 12/28/19 09:42 Nifedipine Xl 30 Mg Tab PO 30 mg DAILY HARPREET Administration Pantoprazole Sodium 40 mg 12/28/19 09:00 12/28/19 09:42 Pantoprazole 40 Mg Tab PO 40 mg DAILY HARPREET Administration Saccharomyces Boulardii 250 mg 12/21/19 09:00 12/28/19 09:43 Saccharomyces Boulardii 250 Mg Cap PO 250 mg DAILY HARPREET Administration Sertraline HCl 50 mg 12/20/19 09:00 12/28/19 09:42 Sertraline Hcl 100 Mg Tab PO 50 mg DAILY HARPREET Administration Sodium Chloride 10 ml 12/20/19 19:15 12/21/19 09:23 Sodium Chloride 0.9% (Pf) 10 Ml Vial FS 10 ml PRN PRN Administration RECONSTITUTION - Exam General Appearance: NAD, awake alert Eye: PERRL, anicteric sclera ENT: normocephalic atraumatic, no oropharyngeal lesions Neck: supple, symmetric, no JVD, no thyromegaly Heart: RRR, no murmur, no gallops, no rubs Respiratory: CTAB, no wheezes, no rales, no ronchi Gastrointestinal: soft, non-tender, non-distended, normal bowel sounds Extremities: no cyanosis, no clubbing, no edema Skin: normal turgor, no lesions Neurological: no focal deficits Musculoskeletal: normal tone, normal strength Psychiatric: normal affect, normal behavior Hosp A/P (1) Sepsis Code(s): A41.9 - SEPSIS, UNSPECIFIED ORGANISM Status: Resolved Qualifiers: Sepsis type: Escherichia coli Sepsis acute organ dysfunction status: with acute organ dysfunction Severe sepsis acute organ dysfunction type: encephalopathy Severe sepsis shock status: without septic shock Qualified Code(s): A41.51 - Sepsis due to Escherichia coli [E. coli]; R65.20 - Severe sepsis without septic shock; G93.41 - Metabolic encephalopathy (2) UTI (urinary tract infection) Status: Acute Qualifiers: Urinary tract infection type: acute cystitis Hematuria presence: without hematuria Qualified Code(s): N30.00 - Acute cystitis without hematuria (3) Morbid obesity Code(s): E66.01 - MORBID (SEVERE) OBESITY DUE TO EXCESS CALORIES Status: Chronic (4) Physical deconditioning Code(s): R53.81 - OTHER MALAISE Status: Chronic (5) Protein-calorie malnutrition, moderate Code(s): E44.0 - MODERATE PROTEIN-CALORIE MALNUTRITION Status: Chronic (6) Macrocytic anemia Code(s): D53.9 - NUTRITIONAL ANEMIA, UNSPECIFIED Status: Chronic (7) Rectal bleed Code(s): K62.5 - HEMORRHAGE OF ANUS AND RECTUM Status: Resolved (8) DVT (deep venous thrombosis) Code(s): I82.409 - ACUTE EMBOLISM AND THOMBOS UNSP DEEP VN UNSP LOWER EXTREMITY Status: Chronic Qualifiers: DVT location: lower extremity Chronicity: chronic Laterality: unspecified laterality (9) Chronic anticoagulation Code(s): 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 coli continue Keflex 500 mg 3 times daily, Today we will check urine analysis to rule out any ongoing gross hematuria Patient should go to detention home as per physical therapy recommendation but patient continued to refuse Continue PT OT and ambulate as tolerated, today we will wean her off oxygen Medication reviewed and continue to provide symptomatic and supportive care, Blood pressure appropriately controlled with current medication H&H remained stable,
[2019-12-28 16:06] LABS: Bacteria/HPF None Seen HPF (None Seen); Bilirubin Negative (Negative); Blood, Urine Negative (Negative); Clarity Turbid (Clear); Glucose, Urine (Dipstick) Normal (Negative); Ketone, Urine Negative (Negative); Leukocyte 75 Leu/uL (Negative); Nitrite Negative (Negative); Protein, Urine (Dipstick) 20 mg/dL (Neg-Trace); RBC/HPF 0-3 HPF (0-3); Specific Gravity, Urine 1.015 (1.002-1.036); Squamous Epithelial 0-3 HPF (0-3); Urobilinogen Normal mg/dL (Less than 2); pH, Urine 6.5 (5.0-9.0)
[2019-12-29 04:00] LABS: Hemoglobin 11.7 g/dL (12.0-16.0); Platelet Count 277 thou/uL (130-400)
--- NOTE | 2019-12-29 07:31 | PDOC.HOSPP ---
- Subjective Encounter Date: 12/29/19 Encounter Time: 07:00 Subjective: Patient seen and examined bedside today, patient is physically weak, she is not changing her mind to go to any rehab or [facility] home, she still prefers to go home with her , her hemoglobin remained stable, last night there was blood in her brief, but her H&H remained stable, - Objective Vital Signs & Weight: Vital Signs (12 hours) Temp Pulse Resp BP Pulse Ox 12/28/19 23:42 98.6 F 68 20 136/65 97 12/28/19 20:00 97 12/28/19 19:30 98.7 F 79 20 149/68 H 97 Weight Admit Weight 231 lb 1.6 oz Weight 236 lb 1.6 oz I&O: 12/28/19 12/29/19 12/30/19 06:59 06:59 06:59 Intake Total 900 Balance 900 Result Diagrams: 12/29/19 03:42 12/26/19 03:23 Additional Labs: Accuchecks 12/29/19 12/28/19 12/28/19 06:02 21:04 16:19 POC Glucose 92 97 95 12/28/19 12/26/19 11:35 16:29 POC Glucose 100 95 Hospitalist ROS - Review of Systems ENT: denies: ear pain, ear discharge, nose pain, nose discharge, nose congestion, mouth pain, mouth swelling, throat pain, throat swelling, other Respiratory: denies: cough, dry, shortness of breath, hemoptysis, SOB with excertion, pleuritic pain, sputum, wheezing, other Cardiovascular: denies: chest pain, palpitations, orthopnea, paroxysmal noc. dyspnea, edema, light headedness, other Gastrointestinal: denies: nausea, vomiting, abdominal pain, diarrhea, constipation, melena, hematochezia, other Genitourinary: denies: dysuria, frequency, incontinence, hematuria, retention, other Musculoskeletal: denies: neck pain, shoulder pain, arm pain, back pain, hand pain, leg pain, foot pain, other - Medication Medications: Active Medications Generic Name Dose Route Start Last Admin Trade Name Freq PRN Reason Stop Dose Admin Acetaminophen 650 mg 12/19/19 00:23 12/20/19 15:35 Acetaminophen 325 Mg Tab PO 650 mg Q4H PRN Administration Headache/Fever/Mild Pain (1-3) Apixaban 2.5 mg 12/27/19 21:00 12/28/19 20:54 Apixaban 2.5 Mg Tab PO 2.5 mg BID HARPREET Administration Cephalexin 500 mg 12/28/19 09:00 12/28/19 20:54 Cephalexin 250 Mg Cap PO 500 mg TID HARPREET Administration Clonidine 0.1 mg 12/23/19 08:48 12/27/19 23:28 Clonidine 0.1 Mg Tab PO 0.1 mg Q4H PRN Administration Blood Pressure, SBP>150 Cyanocobalamin 1,000 mcg 12/27/19 09:00 12/28/19 09:42 Cyanocobalamin (Vitamin B-12) 1,000 Mcg Tab PO 1,000 mcg DAILY HARPREET Administration Folic Acid 1 mg 12/27/19 09:00 12/28/19 09:42 Folic Acid 1 Mg Tab PO 1 mg DAILY HARPREET Administration Metoprolol Tartrate 50 mg 12/19/19 21:00 12/28/19 20:55 Metoprolol Tartrate 50 Mg Tab PO 50 mg BID HARPREET Administration Metoprolol Tartrate 5 mg 12/23/19 08:48 12/27/19 12:53 Metoprolol Tartrate 5 Mg/5 Ml Vial IVP 5 mg Q4H PRN Administration for HR > 90 or SBP>150 Nifedipine 30 mg 12/28/19 09:00 12/28/19 09:42 Nifedipine Xl 30 Mg Tab PO 30 mg DAILY HARPREET Administration Pantoprazole Sodium 40 mg 12/28/19 09:00 12/28/19 09:42 Pantoprazole 40 Mg Tab PO 40 mg DAILY HARPREET Administration Saccharomyces Boulardii 250 mg 12/21/19 09:00 12/28/19 09:43 Saccharomyces Boulardii 250 Mg Cap PO 250 mg DAILY HARPREET Administration Sertraline HCl 50 mg 12/20/19 09:00 12/28/19 09:42 Sertraline Hcl 100 Mg Tab PO 50 mg DAILY HARPREET Administration Sodium Chloride 10 ml 12/20/19 19:15 12/21/19 09:23 Sodium Chloride 0.9% (Pf) 10 Ml Vial FS 10 ml PRN PRN Administration RECONSTITUTION - Exam General Appearance: NAD, awake alert Eye: PERRL, anicteric sclera ENT: normocephalic atraumatic, no oropharyngeal lesions Neck: supple, symmetric, no JVD, no thyromegaly Heart: RRR, no murmur, no gallops, no rubs Respiratory: CTAB, no wheezes, no rales, no ronchi Gastrointestinal: soft, non-tender, non-distended, normal bowel sounds Extremities: no cyanosis, no clubbing Skin: normal turgor, no lesions Neurological: no focal deficits Musculoskeletal: normal tone, normal strength Psychiatric: normal affect, normal behavior Hosp A/P (1) UTI (urinary tract infection) Status: Acute Qualifiers: Urinary tract infection type: acute cystitis Hematuria presence: without hematuria Qualified Code(s): N30.00 - Acute cystitis without hematuria Plan: On discharge changed to Keflex (2) Sepsis Code(s): A41.9 - SEPSIS, UNSPECIFIED ORGANISM Status: Resolved Qualifiers: Sepsis type: Escherichia coli Sepsis acute organ dysfunction status: with acute organ dysfunction Severe sepsis acute organ dysfunction type: encephalopathy Severe sepsis shock status: without septic shock Qualified Code(s): A41.51 - Sepsis due to Escherichia coli [E. coli]; R65.20 - Severe sepsis without septic shock; G93.41 - Metabolic encephalopathy Plan: Resolved (3) Morbid obesity Code(s): E66.01 - MORBID (SEVERE) OBESITY DUE TO EXCESS CALORIES Status: Chronic (4) Physical deconditioning Code(s): R53.81 - OTHER MALAISE Status: Chronic Plan: Offered to go to [facility] but patient does not want to go to [facility] home rather she wants to go home (5) Protein-calorie malnutrition, moderate Code(s): E44.0 - MODERATE PROTEIN-CALORIE MALNUTRITION Status: Chronic (6) Macrocytic anemia Code(s): D53.9 - NUTRITIONAL ANEMIA, UNSPECIFIED Status: Chronic (7) Rectal bleed Code(s): K62.5 - HEMORRHAGE OF ANUS AND RECTUM Status: Resolved Plan: She has hemorrhoidal bleed, on and off, her H&H remained stable, (8) DVT (deep venous thrombosis) Code(s): I82.409 - ACUTE EMBOLISM AND THOMBOS UNSP DEEP VN UNSP LOWER EXTREMITY Status: Chronic Qualifiers: DVT location: lower extremity Chronicity: chronic Laterality: unspecified laterality (9) Chronic anticoagulation Code(s): Z79.01 - DATA SOLUTIONS ARCHITECT (CURRENT) USE OF ANTICOAGULANTS Status: Chronic - Plan old records reviewed/req, continue antibiotics, mental health social worker Regarding sepsis due to UTI due to E. coli continue Keflex 500 mg 3 times daily, Medication reviewed and continue to provide symptomatic and supportive care, Blood pressure appropriately controlled with current medication H&H remained stable, Plan for discharge today
[2019-12-29 07:56] VITALS: BP 168/71; TEMP 98.1
[2019-12-29] MEDS: Folic Acid 1 MG TAB PO SCH (09:04)
[2019-12-29] MEDS: NIFEdipine XL 30 MG TAB PO SCH (09:04)
[2019-12-29] MEDS: Saccharomyces boulardii 250 MG CAP PO SCH (09:04)
[2019-12-29] MEDS: Apixaban 2.5 MG TAB PO SCH (09:05)
[2019-12-29] MEDS: Cyanocobalamin (Vitamin B-12) 1,000 MCG TAB PO SCH (09:05)
[2019-12-29] MEDS: Metoprolol Tartrate 50 MG TAB PO SCH (09:05)
[2019-12-29] MEDS: Cephalexin 250 MG CAP PO SCH (09:05)
[2019-12-29 14:15] VITALS: BMI 40.5
--- NOTE | 2019-12-30 10:03 | DIS ---
DATE OF ADMISSION: 12/19/2019 DATE OF DISCHARGE: 12/29/2019 PRIMARY CARE PHYSICIAN: [facility] Call admission. DISCHARGE DISPOSITION: Home. PRIMARY DISCHARGE DIAGNOSES: 1. Acute kidney failure, resolved. 2. Urinary tract infection. 3. Sepsis with acute organ dysfunction. 4. Metabolic encephalopathy, resolved. 5. Rectal bleed due to external hemorrhoid. SECONDARY DISCHARGE DIAGNOSES: Chronic anticoagulation, history of deep vein thrombosis, macrocytic anemia, protein calorie malnutrition, chronic physical deconditioning, morbid obesity. PRIMARY PROCEDURE/OPERATION: None. RADIOLOGICAL INVESTIGATION: Chest x-ray on admission showed cardiomegaly and mild vascular congestion. CT brain negative for any acute intracranial process. Chronic ischemic white matter changes. Ultrasound bilateral lower extremity showed DVT. CT angiography negative for pulmonary embolism. Echocardiography showed EF 55% to 60%. Abdomen and pelvis CT scan, abdominal wall hematoma, atelectasis. SIGNIFICANT LABORATORY DATA: WBC 8.4, hemoglobin 11.7, and platelet 277. INR 1.9. Sodium 138, creatinine 0.76, calcium 9.3. Urinalysis suggestive of UTI. COVID-19 negative. Blood culture positive for E. coli. Urine culture positive for E. coli. Repeat culture negative. DISCHARGE MEDICATIONS: 1. Aspirin 81 mg p.o. daily. 2. Metoprolol twice daily. 3. Omeprazole 20 mg daily. 4. Zoloft 50 mg daily. 5. Anusol-HC 25 mg per rectum b.i.d. p.r.n. 6. Cephalexin 500 mg t.i.d. for 7 days. 7. Eliquis 2.5 mg b.i.d. 8. Florastor 250 mg p.o. daily. 9. Folic acid 1 mg daily. 10. Procardia XL 30 mg p.o. daily. 11. Vitamin B12, 1000 mcg p.o. daily. CONTRAINDICATION: None. CODE STATUS: Full code. INPATIENT EDUCATION ANALYST: 1. Dr. Murphy was consulted for rectal bleed and the patient was found with hemorrhoidal bleed. 2. Dr. Guillaume was consulted for E coli bacteremia and recommended to change oral antibiotic therapy. 3. Dr. Patton was consulted for abdominal wall hematoma and required monitoring. 4. Dr. Cardenas, cardiovascular surgeon consulted for IVC filter, but not recommended IVC filter. TEST RESULTS PENDING ON DISCHARGE: None. ALLERGIES: CODEINE, PENTAZOCINE, PROMETHAZINE, PROPOXYPHENE. DISCHARGE PLAN: Post hospital, the patient will follow up with primary care physician. HOSPITAL COURSE: A 74-year-old female who was admitted in the hospital for severe sepsis with acute organ dysfunction. She had acute encephalopathy that was resolved after treatment of sepsis. On admission, CT brain was unremarkable. Chest x-ray was unremarkable. The patient's urinalysis was consistent with UTI. She had acute kidney failure, which was improved with IV fluids. The patient has also history of chronic anticoagulation and she had bilateral DVT on ultrasound, but no PE on CT angio. Echocardiography was unremarkable. During this admission, the patient had rectal bleed and that is why GI was consulted and they recommended Anusol-HC for hemorrhoids. Her H and H remained stable. She did not require any blood transfusion. The patient has significant physical deconditioning and physical therapy recommends to go to retirement home, but the patient does not want to go to long term, rather she wants to go home with her . While in the hospital, she had a positive blood culture and urine culture and Dr. Guillaume recommended to change oral antibiotic therapy. While in the hospital, the patient was given broad-spectrum antibiotic coverage. This patient is overall medically stable for discharge. The patient is at high risk for recurrent admission given her physical deconditioning. Job ID: [id number]
== END 2019-12-29 14:40 | disposition home or self-care (01) | DRG 871 ==
LOC: ERS 20:09 → 2NO 12-19 00:04 → ONC 12-27 14:20
PROVIDERS: ADMIT Internal Medicine; ATTEND Internal Medicine
DX: A41.51 Sepsis due to Escherichia coli [E. coli] (principal); G93.41 Metabolic encephalopathy; N39.0 Urinary tract infection, site not specified; N17.9 Acute kidney failure, unspecified; Z68.41 Body mass index [BMI] 40.0-44.9, adult; E44.0 Moderate protein-calorie malnutrition; I82.409 Acute embolism and thrombosis of unspecified deep veins of unspecified lower extremity; M19.90 Unspecified osteoarthritis, unspecified site; B96.20 Unspecified Escherichia coli [E. coli] as the cause of diseases classified elsewhere; I10 Essential (primary) hypertension; R65.20 Severe sepsis without septic shock; E66.01 Morbid (severe) obesity due to excess calories; E11.40 Type 2 diabetes mellitus with diabetic neuropathy, unspecified; F41.9 Anxiety disorder, unspecified; K64.9 Unspecified hemorrhoids; F32.9 Major depressive disorder, single episode, unspecified; Z90.49 Acquired absence of other specified parts of digestive tract; Z88.8 Allergy status to other drugs, medicaments and biological substances; Z88.6 Allergy status to analgesic agent; R53.81 Other malaise; Z20.828 Contact with and (suspected) exposure to other viral communicable diseases
CPT/HCPCS: 36415; 36416; 36600; 51701; 70450; 71045; 71275; 74176; 76770; 80048; 80053; 80202; 81003; 81015; 82565; 83605; 83735; 84443; 85014; 85018; 85025; 85049; 85610; 85730; 87040; 87077; 87086; 87149; 87186; 87635; 93005; 93010; 93306; 93970; 96361; 96365; 96366; 96367; 96375; C9113; J0696; J1650; J2185; J2405; J3370; J3490; J7030; J7050; Q9967; U0003

== ENCOUNTER 2020-02-14 17:29 | Inpatient (IN) | payer MEDICARE ==
[~2020-02-14 17:29] MED LIST: Iopamidol-370 76% 500 ML 1 ML ONE
[2020-02-14 18:09] LABS: Bacteria/HPF 3+ HPF (None Seen); Bilirubin Negative (Negative); Blood, Urine 1+ (Negative); Calcium Oxalate Crystals 1+ HPF (None Seen); Clarity Extra Turbid (Clear); Glucose, Urine (Dipstick) Normal (Negative); Ketone, Urine 10 mg/dL (Negative); Leukocyte 500 Leu/uL (Negative); Nitrite Negative (Negative); Protein, Urine (Dipstick) 30 mg/dL (Neg-Trace); Specific Gravity, Urine 1.021 (1.002-1.036); WBC/HPF Greater than 50 HPF (0-3)
[2020-02-14 18:13] LABS: #Basophils 0.1 thou/uL (0.0-0.2); #Eosinphils 0.2 thou/uL (0.0-0.7); #Lymphocytes 2.8 thou/uL (1.20-3.40); #Monocytes 0.6 thou/uL (0.11-0.59); #Neutrophils 4.6 thou/uL (1.40-6.50); %Basophils 1.5 % (0.0-1.0); %Eosinophils 2.2 % (0.0-10.0); %Lymphocytes 34.2 % (21.0-51.0); %Monocytes 6.8 % (0.0-10.0); %Neutrophils 55.3 % (42.0-75.0); Hemoglobin 13.6 g/dL (12.0-16.0); Mean Corpuscular HGB CONC 34.1 g/dL (32.0-36.0); Mean Corpuscular Hemoglobin 35.1 pg (27.0-31.0); Platelet Count 227 thou/uL (130-400); RBC Distribution Width 13.2 % (11.5-14.5); Red Blood Cell (RBC) Count 3.87 mill/uL (4.20-5.40); White Blood Cell (WBC) Count 8.3 thou/uL (4.8-10.8)
--- NOTE | 2020-02-14 18:17 | RAD ---
PORTABLE CHEST: Date: 02-14-2020 PROVIDED CLINICAL HISTORY: Altered mental status FINDINGS: Comparison 12-18-2019. Cardiac and mediastinal silhouette is unchanged in appearance. No focal consolidation, pleural fluid or pneumothorax apparent. Calcified granuloma involving the left lower lung zone is re-demonstrated. Vascular calcifications again seen. IMPRESSION: No evidence for an acute cardiopulmonary process. POS: DARWIN
[2020-02-14 18:33] LABS: ALT (SGPT) 20 U/L (8-55); AST (SGOT) 43 U/L (5-34); Alkaline Phosphatase 99 U/L (40-110); Anion Gap 17 mmol/L (10-20); BUN (Urea Nitrogen) 16 mg/dL (9.8-20.1); Bilirubin, Total 2.4 mg/dL (0.2-1.2); CK (CPK) 99 U/L (29-168); Calc. Creatinine Clearance 0 mL/min (70-130); Carbon Dioxide 27 mmol/L (23-31); Chloride 98 mmol/L (98-107); Globulin 4.4 g/dL (2.4-3.5); Glucose 84 mg/dL (83-110); Lipase 41 U/L (8-78); Protein, Total 7.4 g/dL (6.0-8.3)
[2020-02-14 18:36] LABS: Potassium 2.9 mmol/L (3.5-5.1); Sodium 139 mmol/L (136-145)
[2020-02-14] MEDS ORDERED: Ondansetron PF 4 MG/2 ML Vial ONE (18:37)
[2020-02-14] MEDS ORDERED: cefTRIAXone\\ROCEPHIN 2 GM VIAL ONE (18:37)
[2020-02-14] MEDS ORDERED: Vancomycin 1 GM/200 ML BAG ONE (19:21)
[2020-02-14] MEDS ORDERED: Potassium Chloride 20 MEQ TAB ONE (19:21)
--- NOTE | 2020-02-14 21:00 | PDOC.FPRHP ---
- History of Present Illness Chief Complaint: weakness History of Present Illness: This is a 74yo F here today with CC of diffuse weakness. States she was unable to get off her couch for the last 6 days. Per ER record, set up pee pads around her. She endorses low grade fever and has had multiple UTIs. Reports chi lls. Uses walker for ambulation. States that she has agorabphobia. She states that [facility] but she was unable to go to the clinic due to her agoraphobia and she stayed at home. Reports vomiting that started about 2 weeks ago. Endorses chronic diarrhea. Denies blood in stool. No known COVID exposure. No sick contacts. Denies chest pain, SOB, abd pain, palpitations, cough, congestion, sore throat. Denies dysuria. Reports decreased appetite that has been present for some time but has been able to tolerate liquids. Reports today she was unable to tolerate any food and her friend encouraged her to come to the ER. Reports chronic back pain, no new back pain. Reports tingling in extremities. Denies headaches or blurry vision. Reports has not taking her medications at home for the last week or so. ED Course: zofran, K-dur, rocephin, vanc, NS 1L and 30ml/kg - Allergies/Adverse Reactions Allergies Allergy/AdvReac Type Severity Reaction Status Date / Time codeine Allergy Verified 03/11/16 13:44 pentazocine [From Talwin] Allergy Verified 03/11/16 13:44 promazine [From Sparine] Allergy Verified 03/11/16 13:44 propoxyphene [From Darvon] Allergy Verified 03/11/16 13:44 - Home Medications Medication Instructions Recorded Confirmed Type Metoprolol Tartrate [Lopressor] 50 mg PO BID 03/11/16 02/14/20 History Aspirin [Aspirin EC] 81 mg PO DAILY 12/19/19 02/14/20 History Omeprazole 20 mg PO DAILY 12/19/19 02/14/20 History Sertraline HCl 50 mg PO DAILY 12/19/19 02/14/20 History Apixaban [Eliquis] 2.5 mg PO BID #60 tab 12/29/19 02/14/20 Rx Cyanocobalamin (Vitamin B-12) 1,000 mcg PO DAILY #30 tab 12/29/19 02/14/20 Rx [Vitamin B-12] Folic Acid [Folvite] 1 mg PO DAILY #30 tab 12/29/19 02/14/20 Rx Hydrocortisone Acetate [Anusol-HC] 25 mg IA BIDPRN PRN #20 supp 12/29/19 02/14/20 Rx NIFEdipine [Procardia XL] 30 mg PO DAILY #30 tab 12/29/19 02/14/20 Rx - History PMHx: HTN, arthritis, obesity, DM (patient denies), anxiety/depression, DVTs, HLD PSHx: tonsillectomy FHx: Father - arthritis Social: denies alcohol drug or tobacco use; lives at home with - Review of Systems General: reports: fever/chills, weight/appetite/sleep changes, fatigue. denies: night sweats Eyes: denies: eye pain, vision changes ENT: denies: nasal congestion, rhinorrhea Respiratory: denies: cough, congestion, shortness of breath Cardiovascular: denies: chest pain, palpitation, edema Gastrointestinal: reports: nausea, vomiting, diarrhea. denies: constipation, abdominal pain Genitourinary: denies: dysuria Skin: denies: rashes, lesions Musculoskeletal: denies: pain, tenderness, stiffness, swelling Neurological: reports: weakness. denies: numbness, seizure Psychological: reports: anxiety - Vital signs BP: 176/93, Pulse: 91, Resp: 18, Pain: 0, O2 sat: 100 on (Room Air), Time: 02/14/2020 20:06. Weight 94kg BP: 155/90, Pulse: 110, Temp: 98.6 (Oral), O2 sat: 96 on (Room Air), Time: 02/14/2020 17:31. - Physical Exam Constitutional: NAD, awake, alert and oriented HEENT: normocephalic and atraumatic, PERRLA, EOMI, grossly normal vision, grossly normal hearing -HEENT: MM dry Neck: supple, FROM, trachea midline, no LAD Heart: RRR, normal S1/S2, no murmurs/rubs/gallops, pulses present -Heart: Trace BLT LE edema Lungs: CTAB, no respiratory distress, good air movement, no rales/rhonchi, no wheezing, no retractions Abdomen: soft, non-tender, bowel sounds present Musculoskeletal: normal structure Neurological: no focal deficit Skin: no rash/lesions -Skin: poor skin turgor and delayed cap refill Psychiatric: normal mood and affect FMR H&P: Results - Labs Result Diagrams: 02/15/20 05:52 02/15/20 05:52 Lab results: WBC 8.3 thou/uL (4.8-10.8) 02/14/20 17:50 Hgb 13.6 g/dL (12.0-16.0) 02/14/20 17:50 Hct 39.8 % (36.0-47.0) 02/14/20 17:50 MCV 103.0 fL (78.0-98.0) H 02/14/20 17:50 Plt Count 227 thou/uL (130-400) 02/14/20 17:50 Neutrophils % 55.3 % (42.0-75.0) 02/14/20 17:50 Sodium 139 mmol/L (136-145) 02/14/20 17:50 Potassium 2.9 mmol/L (3.5-5.1) L* 02/14/20 17:50 Chloride 98 mmol/L (98-107) 02/14/20 17:50 Carbon Dioxide 27 mmol/L (23-31) 02/14/20 17:50 BUN 16 mg/dL (9.8-20.1) 02/14/20 17:50 Creatinine 1.03 mg/dL (0.6-1.1) 02/14/20 17:50 Glucose 84 mg/dL (83-110) 02/14/20 17:50 Lactic Acid 1.8 mmol/L (0.5-2.2) 02/14/20 17:50 Calcium 10.0 mg/dL (7.8-10.44) 02/14/20 17:50 Total Bilirubin 2.4 mg/dL (0.2-1.2) H 02/14/20 17:50 AST 43 U/L (5-34) H 02/14/20 17:50 ALT 20 U/L (8-55) 02/14/20 17:50 Alkaline Phosphatase 99 U/L (40-110) 02/14/20 17:50 Creatine Kinase 99 U/L (29-168) 02/14/20 17:50 B-Natriuretic Peptide 63.5 pg/mL (0-100) 02/14/20 17:50 Serum Total Protein 7.4 g/dL (6.0-8.3) 02/14/20 17:50 Albumin 3.0 g/dL (3.4-4.8) L 02/14/20 17:50 Lipase 41 U/L (8-78) 02/14/20 17:50 Urine Ketones 10 mg/dL (Negative) A 02/14/20 17:46 Urine Blood 1+ (Negative) A 02/14/20 17:46 Urine Nitrite Negative (Negative) 02/14/20 17:46 Ur Leukocyte Esterase 500 Los/uL (Negative) A 02/14/20 17:46 Urine RBC 11-20 HPF (0-3) A 02/14/20 17:46 Urine WBC Greater than 50 HPF (0-3) A 02/14/20 17:46 Ur Squamous Epith Cells 4-6 HPF (0-3) A 02/14/20 17:46 Urine Bacteria 3+ HPF (None Seen) A 02/14/20 17:46 - Radiology Interpretation Chest x-ray Status: report reviewed by me (no acute cardiopulm process) Other Status: report reviewed by me (CTA no PE) FMR H&P: A/P - Problem List (1) History of DVT (deep vein thrombosis) Current Visit: No Status: Acute Code(s): Z86.718 - PERSONAL HISTORY OF OTHER VENOUS THROMBOSIS AND EMBOLISM (2) UTI (urinary tract infection) Current Visit: No Status: Acute Qualifiers: Urinary tract infection type: acute cystitis Hematuria presence: without hematuria Qualified Code(s): N30.00 - Acute cystitis without hematuria (3) Physical deconditioning Current Visit: No Status: Chronic Code(s): R53.81 - OTHER MALAISE (4) Hypokalemia Current Visit: No Status: Resolved Code(s): E87.6 - HYPOKALEMIA (5) Hypertension Current Visit: Yes Status: Acute Code(s): I10 - ESSENTIAL (PRIMARY) HYPERTENSION (6) Hyperbilirubinemia Current Visit: Yes Status: Acute Code(s): E80.6 - OTHER DISORDERS OF BILIRUBIN METABOLISM - Plan Weakness - 2/2 hypokalemia vs deconditioning vs UTI - Treat UTI and hypokalemia as below - PT/OT evaluation and treatment - Likely will need placement for rehab - CM consulted to facilitate placement UTI - UA pos for leukocytes, protein, blood, WBCs, and bacteria. Squamous cells also present. - f/u UCx, adjust abx accordingly - Will continue Rocephin 2g q24 hrs - Renal US in December with calculi and atrophic L kidney Hypokalemia - S/P 40 mEq PO KDur in ED - Repear 40 mEq KDur - Recheck in AM, replete PRN History of DVT - Lovenox prophylaxis - Will review records to determine hx of DVT and if chronic A/C is appropriate Hyperbilirubinemia - No hx of elevation - Labs to check for hepatitis, HIV, syphilis - RUQ US - f/u D bili level - No hx of etoh or drug use per patient - recheck w/ AM labs Hypertension - Start amlodipine - Patient would likely benefit from SIOBHAN/ARB initiation if kidneys will tolerate Poor primary care - Evaluate basic labs - Consult CM for help with insurance DVT ppx: Lovenox GI ppx: not indicated Diet: HH Code: DNI PCP: None Dispo: admit medicine inpatient FMR H&P: Upper Level - Plan Date/Time: 02/14/202099 I, Claudette Ramires MD, have evaluated this patient and agree with findings/plan as outlined by video editing intern resident. Pertinent changes/additions are listed here. This is a 74yo F with PMH of HTN, DM (Patient denies), HLD, history of UTI with bacteremia in Dec who presents to the ER today with CC of weakness. She reports she was unable to get off her cough for 6 days. She has not been taking her chronic medications for about 1 week. She also reports vomiting and diarrhea over the last 2 weeks. Non bloody BMs. She also has had decreased appetite over the last day or so and has not been able to keep anything down prompting her to come to the ER. She lives at home with her . She states that she has agoraphobia. She previously saw [facility] but was unable to go to their clinic due to her agoraphobia. VS have been stable, she was tachycardic on arrival. PE is unremarkable. She is morbidly obese. No abd tenderness. No CVA tenderness, soft, normal BS. Eyes mildly icteric. UA was positive for squamous cells, bacteria, WBC, leukocytes. WBC nml. EKG showing 1st degree AV block, no T wave changes, LVH. Will admit patient to medical to treat her for a UTI and hypokalemia. UA with s igns of infection, obtained via straight cath. Patient did not meet sepsis criteria. We will continue continue rocephin. Dc vanc. Ucx pending, previous Ucx E coli kumar sensitive. Bcx pending. Will get PT/OT due to patient's weakness. Mild dehydration - will give IVF. Hypokalemia - s/p 40mg oral in the ER. Will give another 40. Will get Mg, phos and replace as needed. Morning AM labs to monitor K. Hyperbilirubinemia - T bili 2.4. Mildly elevated AST. Denies alcohol use. Will obtain hepatitis labs. Can consider RUQ labs - likely has fatty liver disease. Morbid Obesity- needs nutrition counselling, lifestyle changes. HTN - will start amlodipine for chronic BP and have PRN medications. Hx of DVT - previously on eliquis, Ddimer elevated, CTA neg. For chronic conditions, will monitor and continue home meds. Will get A1c and lipid panel to risk stratify chronic health conditions. Dispo: admit to medical, inpt. Code: No intubation; desires CPR and chem PCP: none- CC Diet: HH Case discussed with Dr. Bowden Addendum - Attending - Attending Attestation Date/Time: 02/15/201931 I personally evaluated the patient and discussed the management with Dr. Schmitt last night at time of admission. I agree with the History, Examination, Assessment and Plan documented above with any addition or exceptions noted below.
[2020-02-14] MEDS ORDERED: Labetalol HCl 100 MG/20 ML VIAL ONE (21:29)
--- NOTE | 2020-02-14 21:41 | CT ---
CT PULMONARY ANGIOGRAM WITH IV CONTRAST AND 3D MIP RECONSTRUCTIONS: Date: 02-14-2020 PROVIDED CLINICAL HISTORY: Weakness FINDINGS: Comparison 12-19-2019. There is no evidence for central or segmental pulmonary embolus. There is extensive atherosclerotic m ural plaque involving the descending thoracic aorta and visualized proximal abdominal aorta with nume maria victoria ulcerations. There is a stable secular aneurysm arising from the proximal most aspect of the gabby cending thoracic aorta measuring about 1.4 cm. The lungs are free of significant opacity. There is no pleural fluid or pneumothorax apparent. The airway appears patent and of normal caliber. The visuali zed portions of the upper abdomen demonstrate an otherwise unremarkable CT appearance. The osseous st ructures demonstrate no concerning lytic or blastic lesions. IMPRESSION: 1. No evidence for central or segmental pulmonary embolus. 2. Extensive atherosclerotic vascular calcification and irregular ulcerated mural plaque, involv ing the descending thoracic aorta and visualized proximal abdominal aorta. 3. 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 POS: DARWIN
[2020-02-14] MEDS ORDERED: Bisacodyl 10 MG SUPP PR PRN (21:57)
[2020-02-14] MEDS ORDERED: Ondansetron ODT 4 MG TAB PO PRN (21:57)
[2020-02-14] MEDS ORDERED: Bisacodyl 5 MG TAB PO PRN (21:57)
[2020-02-14] MEDS ORDERED: Acetaminophen 650 MG Suppository PR PRN (21:57)
[2020-02-14] MEDS ORDERED: Senokot S 8.6-50 MG TAB PO PRN (21:57)
[2020-02-14] MEDS ORDERED: Acetaminophen 325 MG TAB PO PRN (21:57)
[2020-02-14] MEDS ORDERED: Calcium Carbonate 500 MG ChewTAB PO PRN (21:57)
[2020-02-14] MEDS ORDERED: Labetalol HCl 100 MG/20 ML VIAL SLOW IVP PRN (22:21)
[2020-02-14] MEDS ORDERED: Amlodipine 5 MG TAB PO SCH (22:30)
[2020-02-14] MEDS ORDERED: Potassium Chloride 20 MEQ TAB PO SCH (22:30)
[2020-02-14 23:10] LABS: INR-International Normal Ratio 1.3; PTT 32.8 sec (22.9-36.1)
[2020-02-14 23:11] LABS: Hemoglobin A1c 4.3 % (4.0-6.0)
[2020-02-14 23:32] LABS: Bilirubin, Direct 0.7 mg/dL (0.1-0.3); Magnesium 1.7 mg/dL (1.6-2.6)
[2020-02-14 23:42] LABS: Syphilis Antibody Nonreactive (Nonreactive); Syphilis Antibody Index 0.11 S/CO (<1.00 Non-Reactive)
[2020-02-14 23:43] VITALS: BMI 36.6
[2020-02-14 23:45] LABS: HBSAg Index 0.12 S/CO (0-0.99); HIV (1/2) Antibody/Antigen Non-Reactive (NonReactive); HIV 1/2 INDEX 0.17 S/CO (<1.00); Hep A IgM AB Non-Reactive (NonReactive); Hep A IgM S/CO 0.18 S/CO (0-0.79); Hep B Surf Ag Non-Reactive S/CO (NonReactive); Hep C IgG Ab Non-Reactive (NonReactive); Hep C Index 0.15 S/CO (0-0.79); Thyroid Stimulating Hormone 2.1231 uIU/mL (0.35-4.94)
[2020-02-15] MEDS: Lactated Ringer's 1,000 ML IV SCH ×3 (00:11→15:38)
[2020-02-15] MEDS ORDERED: PHOS-NAK 1 PKT PACK PO SCH (00:15)
[2020-02-15 06:29] LABS: #Basophils 0.1 thou/uL (0.0-0.2); #Eosinphils 0.2 thou/uL (0.0-0.7); #Lymphocytes 2.4 thou/uL (1.20-3.40); #Monocytes 0.6 thou/uL (0.11-0.59); #Neutrophils 4.5 thou/uL (1.40-6.50); %Basophils 0.8 % (0.0-1.0); %Eosinophils 2.9 % (0.0-10.0); %Lymphocytes 30.8 % (21.0-51.0); %Monocytes 7.3 % (0.0-10.0); %Neutrophils 58.1 % (42.0-75.0); Hemoglobin 11.4 g/dL (12.0-16.0); Mean Corpuscular HGB CONC 32.5 g/dL (32.0-36.0); Mean Corpuscular Hemoglobin 33.4 pg (27.0-31.0); Mean Platelet Volume 7.8 fL (7.4-10.4); Platelet Count 202 thou/uL (130-400); RBC Distribution Width 13.1 % (11.5-14.5); White Blood Cell (WBC) Count 7.8 thou/uL (4.8-10.8)
--- NOTE | 2020-02-15 06:44 | PDOC.FM ---
- Subjective Subjective: Ms. Lance complains of some nausea and vomiting this AM. She says she has been struggling with vomiting and diarrhea for the past several months, occurring daily. She often only vomits bile as she does not tolerate meals well and does not have much of an appetite. - Objective Vital Signs & Weight: Vital Signs (12 hours) Temp Pulse Resp BP Pulse Ox 02/15/20 04:57 98.5 F 85 20 153/81 H 98 02/15/20 00:29 95 02/15/20 00:11 85 02/14/20 22:50 97.8 F 85 20 136/78 95 Weight Weight 96.751 kg Result Diagrams: 02/15/20 05:52 02/15/20 05:52 Phys Exam - Physical Examination Constitutional: NAD HEENT: moist MMs, sclera anicteric Neck: no JVD, full ROM Respiratory: no wheezing, no rales, no rhonchi, clear to auscultation bilateral Cardiovascular: RRR, no significant murmur Gastrointestinal: soft, non-tender Musculoskeletal: no edema, pulses present Neurological: non-focal, normal sensation Psychiatric: normal affect, A&O x 3 Dx/Plan - Plan Plan: Weakness - 2/2 hypokalemia vs deconditioning vs UTI - Treat UTI and hypokalemia as below - PT/OT evaluation and treatment - Likely will need placement for rehab - CM consulted to facilitate placement UTI - UA pos for leukocytes, protein, blood, WBCs, and bacteria. Squamous cells also present. - f/u UCx, adjust abx accordingly - Will continue Rocephin 2g q24 hrs - Renal US in December with calculi and atrophic L kidney Hypokalemia - 2.9 > 3.8 - s/p 80 mEq PO KDur in ED History of DVT - Lovenox prophylaxis - Will review records to determine hx of DVT and if chronic A/C is appropriate Hyperbilirubinemia - 2.4 > 1.5 - Direct Bili: 0.7 - Hepatitis, HIV, syphilis negative - RUQ US pending - No hx of etoh or drug use per patient Hypertension - Start amlodipine - Patient would likely benefit from SIOBHAN/ARB initiation if kidneys will tolerate Poor primary care - Evaluate basic labs - Consult CM for help with insurance DVT ppx: Lovenox GI ppx: not indicated Diet: HH Code: DNI PCP: None Dispo: admit medicine inpatient
[2020-02-15 06:49] LABS: ALT (SGPT) 16 U/L (8-55); AST (SGOT) 38 U/L (5-34); Albumin 2.4 g/dL (3.4-4.8); Alkaline Phosphatase 79 U/L (40-110); Anion Gap 11 mmol/L (10-20); BUN (Urea Nitrogen) 14 mg/dL (9.8-20.1); Bilirubin, Total 1.5 mg/dL (0.2-1.2); Calc. Creatinine Clearance 89 mL/min (70-130); Calcium 8.9 mg/dL (7.8-10.44); Carbon Dioxide 28 mmol/L (23-31); Cardiac Risk 7.3 (Less than 4.5); Chloride 106 mmol/L (98-107); Cholesterol 190 mg/dl (< 200 Desired); Globulin 3.7 g/dL (2.4-3.5); Glucose 83 mg/dL (83-110); HDL Cholesterol 26 mg/dL (>60 Neg Risk); LDL Cholesterol, Calculated 137 mg/dL; Potassium 3.8 mmol/L (3.5-5.1); Protein, Total 6.1 g/dL (6.0-8.3); Sodium 141 mmol/L (136-145); Triglycerides 133 mg/dL (Less than 150)
--- NOTE | 2020-02-15 08:30 | ULT ---
ULTRASOUND ABDOMEN LIMITED: (RIGHT UPPER QUADRANT) DATE: 02/15/2020 HISTORY: 74-year-old female with elevated bilirubin FINDINGS: Gallbladder:Not visualized Common duct: 5 mm. Liver:Diffusely coarse echotexture. Nodular margins. Pancreas:Nonspecific sonographic appearance. Right kidney:No hydronephrosis. 1 cm exophytic cortical cyst. IMPRESSION: 1) hepatic cirrhosis. 2) gallbladder not visualized: Either severely contracted or surgically absent. Recommend correlation with surgical history.
[2020-02-15] MEDS: Amlodipine 10 MG TAB PO SCH ×2 (08:32→15:37)
[2020-02-15] MEDS: Ondansetron PF 4 MG/2 ML Vial IVP PRN (08:33)
[2020-02-15 08:49] LABS: SARS-CoV-2 MS2 Positive; SARS-CoV-2 N Gene Negative; SARS-CoV-2 S Gene Negative; SARS-CoV-2 by NAA Not Detected (NotDetected); SARS-CoV-2 orf1ab Negative
[2020-02-15] MEDS: Enoxaparin Sodium 40 MG/0.4 ML SYRINGE SC SCH (09:22)
[2020-02-15] MEDS ORDERED: Nystatin Powder 15 GM BOT TOP PRN (09:46)
--- NOTE | 2020-02-15 11:22 | PRG ---
DATE OF SERVICE: 02/15/2020 Ms. Lance is a 74-year-old lady, who was initially admitted with weakness, hypokalemia, and some deconditioning. She also was noted to have UTI, which has been successfully treated. Her hypokalemia has been corrected to 3.8. Job ID: [id number]
[2020-02-15] MEDS: Metoclopramide HCl 10 MG TAB PO SCH (17:02)
[2020-02-15] MEDS: cefTRIAXone\\ROCEPHIN 2 GM in Sodium Chloride 0.9% 100 ML IVPB SCH (21:01)
[2020-02-15] MEDS: Metoprolol Tartrate 100 MG TAB PO SCH (21:01)
[2020-02-16] MEDS: Lactated Ringer's 1,000 ML IV SCH ×2 (00:10→06:50)
[2020-02-16] MEDS: Metoclopramide HCl 10 MG TAB PO SCH ×2 (05:59→17:25)
[2020-02-16 06:43] LABS: #Basophils 0.1 thou/uL (0.0-0.2); #Eosinphils 0.4 thou/uL (0.0-0.7); #Lymphocytes 2.6 thou/uL (1.20-3.40); #Monocytes 0.6 thou/uL (0.11-0.59); #Neutrophils 4.4 thou/uL (1.40-6.50); %Basophils 0.8 % (0.0-1.0); %Eosinophils 4.6 % (0.0-10.0); %Lymphocytes 32.6 % (21.0-51.0); %Monocytes 7.3 % (0.0-10.0); %Neutrophils 54.7 % (42.0-75.0); Hemoglobin 11.3 g/dL (12.0-16.0); Mean Corpuscular HGB CONC 32.1 g/dL (32.0-36.0); Mean Corpuscular Hemoglobin 33.4 pg (27.0-31.0); Mean Platelet Volume 7.9 fL (7.4-10.4); Platelet Count 203 thou/uL (130-400); RBC Distribution Width 13.2 % (11.5-14.5); Red Blood Cell (RBC) Count 3.39 mill/uL (4.20-5.40)
[2020-02-16 07:05] LABS: Phosphorus 2.3 mg/dL (2.3-4.7)
[2020-02-16 07:11] LABS: ALT (SGPT) 14 U/L (8-55); AST (SGOT) 34 U/L (5-34); Albumin 2.3 g/dL (3.4-4.8); Alkaline Phosphatase 74 U/L (40-110); Anion Gap 13 mmol/L (10-20); BUN (Urea Nitrogen) 10 mg/dL (9.8-20.1); Calc. Creatinine Clearance 94 mL/min (70-130); Carbon Dioxide 24 mmol/L (23-31); Chloride 107 mmol/L (98-107); Globulin 3.6 g/dL (2.4-3.5); Glucose 82 mg/dL (83-110); Potassium 3.7 mmol/L (3.5-5.1); Protein, Total 5.9 g/dL (6.0-8.3); Sodium 140 mmol/L (136-145)
--- NOTE | 2020-02-16 07:24 | PDOC.FM ---
- Subjective Subjective: Ms. Lnace reports she is feeling slightly better this morning. She was nauseous yesterday but managed to eat some of her dinner. She did have diarrhea last night. - Objective Vital Signs & Weight: Vital Signs (12 hours) Temp Pulse Resp BP Pulse Ox 02/16/20 04:53 98.2 F 70 20 147/77 H 94 L 02/16/20 00:00 98.1 F 70 20 170/78 H 94 L 02/15/20 20:58 93 L 02/15/20 19:48 98.6 F 93 20 161/87 H 99 Weight Admit Weight 96.751 kg Weight 96.751 kg I&O: 02/15/20 02/16/20 02/17/20 06:59 06:59 06:59 Intake Total 3072 Balance 3072 Result Diagrams: 02/16/20 05:58 02/16/20 05:58 Phys Exam - Physical Examination Constitutional: NAD HEENT: moist MMs, sclera anicteric Neck: full ROM Respiratory: no wheezing, clear to auscultation bilateral Cardiovascular: RRR, no significant murmur Gastrointestinal: soft, non-tender Musculoskeletal: no edema, pulses present Neurological: non-focal, moves all 4 limbs Psychiatric: normal affect, A&O x 3 Skin: no rash Dx/Plan - Plan Plan: Weakness - 2/2 hypokalemia vs deconditioning vs UTI - Treat UTI and hypokalemia as below - PT/OT evaluation and treatment - Likely will need placement for rehab - CM consulted to facilitate placement Hepatic Cirrhosis - RUQ revaled cirrhosis - Hepatitis panel negative - Ferritin 361 - autoimmune pending - Consider GI consult UTI - UA pos for leukocytes, protein, blood, WBCs, and bacteria. Squamous cells also present. - f/u UCx, adjust abx accordingly - Will continue Rocephin 2g q24 hrs - Renal US in December with calculi and atrophic L kidney Hypokalemia - 2.9 > 3.8 > 3.7 - s/p 80 mEq PO KDur in ED History of DVT - Lovenox prophylaxis - Will review records to determine hx of DVT and if chronic A/C is appropriate Hyperbilirubinemia - 2.4 > 1.5 - Direct Bili: 0.7 - Hepatitis, HIV, syphilis negative - RUQ US pending - No hx of etoh or drug use per patient Hypertension - Start amlodipine - Patient would likely benefit from SIOBHAN/ARB initiation if kidneys will tolerate Poor primary care - Evaluate basic labs - Consult CM for help with insurance DVT ppx: Lovenox GI ppx: not indicated Diet: HH Code: DNI PCP: None Dispo: admit medicine inpatient Addendum - Attending - Attending Attestation Date/Time: 02/16/20 0649 I personally evaluated the patient and discussed the management with Dr. Young. I agree with the History, Examination, Assessment and Plan documented above with any addition or exceptions noted below. Chronic nausea - continue zofran although apparently improved from admission Vaginal bleeding, postmenopausal - will need f/u evaluation for endometrial CA New cirrhosis - will d/w GI Placement pending.
[2020-02-16] MEDS: Folic Acid 1 MG TAB PO SCH (08:20)
[2020-02-16] MEDS: NIFEdipine XL 30 MG TAB PO SCH (08:20)
[2020-02-16] MEDS: Aspirin 81 mg Enteric Coated Tablet PO SCH (08:20)
[2020-02-16] MEDS: Cyanocobalamin (Vitamin B-12) 1,000 MCG TAB PO SCH (08:20)
[2020-02-16] MEDS: Amlodipine 10 MG TAB PO SCH (08:20)
[2020-02-16] MEDS: Metoprolol Tartrate 100 MG TAB PO SCH ×2 (08:23→20:18)
[2020-02-16] MEDS: Ondansetron PF 4 MG/2 ML Vial IVP PRN (11:22)
[2020-02-16] MEDS: Enoxaparin Sodium 40 MG/0.4 ML SYRINGE SC SCH (11:25)
--- NOTE | 2020-02-16 15:53 | PDOC.FMACP ---
Advance Care Planning - Problem (1) Hepatic cirrhosis Status: Acute Code(s): K74.60 - UNSPECIFIED CIRRHOSIS OF LIVER (2) Palliative care encounter Status: Acute Code(s): Z51.5 - ENCOUNTER FOR PALLIATIVE CARE (3) Hyperbilirubinemia Status: Acute Code(s): E80.6 - OTHER DISORDERS OF BILIRUBIN METABOLISM (4) Physical deconditioning Status: Chronic Code(s): R53.81 - OTHER MALAISE (5) Protein-calorie malnutrition, moderate Status: Chronic Code(s): E44.0 - MODERATE PROTEIN-CALORIE MALNUTRITION - Note Participants: palliative care Summary: Palliative Care addressed Advanced Care Planning. The diagnosis, prognosis and goals of care were discussed. Appropriate forms and documentation to accomplish the goals of care were discussed. All questions were answered. Ms Lance elected to complete MPOA and directive to physician. Original given to patient and copy placed on chart for medical records. Confirmed Partial resuscitation status, no intubation. Palliative Care will sign off as directives have been addressed. Please re consult our team if we can assist with revisiting goal of care, complex decision making, prognosis disease assist, support. Thank you for this very appropriate consult. Time Spent (mins): 15
[2020-02-16] MEDS: cefTRIAXone\\ROCEPHIN 2 GM in Sodium Chloride 0.9% 100 ML IVPB SCH (20:19)
[2020-02-17] MEDS: Metoclopramide HCl 10 MG TAB PO SCH ×2 (06:45→17:20)
--- NOTE | 2020-02-17 06:50 | PDOC.FM ---
- Subjective Subjective: Ms. Lance is doing well this AM. She reports improvement in her nausea and say she tolerated ensure well for her meals yesterday and wants that for breakfast again. Spoke extensively with patient and yesterday regarding inability to go to rehab due to financial status. Patient and are agreeable to home health and having home visits with our clinic. - Objective Vital Signs & Weight: Vital Signs (12 hours) Temp Pulse Resp BP Pulse Ox 02/17/20 03:59 98.3 F 69 15 134/67 92 L 02/16/20 21:00 92 L 02/16/20 19:29 98.4 F 79 16 134/66 92 L Weight Admit Weight 96.751 kg Weight 96.751 kg I&O: 02/15/20 02/16/20 02/17/20 06:59 06:59 06:59 Intake Total 3072 1480 Output Total 120 Balance 3072 1360 Result Diagrams: 02/17/20 06:49 02/17/20 06:49 Phys Exam - Physical Examination Constitutional: NAD HEENT: moist MMs Respiratory: no wheezing, clear to auscultation bilateral Cardiovascular: RRR, no significant murmur Gastrointestinal: soft, non-tender, no distention Musculoskeletal: no edema, pulses present Neurological: moves all 4 limbs Psychiatric: normal affect, A&O x 3 Skin: no rash Dx/Plan - Plan Plan: Weakness - 2/2 hypokalemia vs deconditioning vs UTI - Treat UTI and hypokalemia as below - PT/OT evaluation and treatment. Patient has not been working much with PT due to nausea - CM consult: cannot afford rehab, patient is agreeable to HH and starting home visits with our clinic Nausea - Suspected may be due to gastroparesis - Started reglan - Patient reports improvement today and good toleration of ensure Hepatic Cirrhosis - RUQ revaled cirrhosis - Hepatitis panel negative - Ferritin 361 - autoimmune pending - Discussed case with GI: patient may be worked up outpatient. No cause for inpatient evaluation at this time. UTI - UA pos for leukocytes, protein, blood, WBCs, and bacteria. Squamous cells also present. - f/u UCx, adjust abx accordingly - Rocephin (day 4) - Renal US in December with calculi and atrophic L kidney Hypokalemia, improved - 2.9 > 3.8 > 3.7 > 3.8 - s/p 80 mEq PO KDur in ED History of DVT - Lovenox prophylaxis - Will review records to determine hx of DVT and if chronic A/C is appropriate Hyperbilirubinemia - 2.4 > 1.5 - Direct Bili: 0.7 - Hepatitis, HIV, syphilis negative - RUQ US pending - No hx of etoh or drug use per patient Hypertension - Start amlodipine - Patient would likely benefit from SIOBHAN/ARB initiation if kidneys will tolerate Poor primary care - Evaluate basic labs - Consult CM for help with insurance DVT ppx: Lovenox GI ppx: not indicated Diet: HH Code: DNI PCP: None Dispo: Patient can likely be discharged home with HH today. Addendum - Attending - Attending Attestation Date/Time: 02/18/20 1033 I personally evaluated the patient and discussed the management with the team. I agree with the History, Examination, Assessment and Plan documented above with any addition or exceptions noted below. Overall doing better, no abdominal pain or nausea. Ok for d/c with return warnings.
[2020-02-17 07:26] LABS: #Eosinphils 0.4 thou/uL (0.0-0.7); #Lymphocytes 2.9 thou/uL (1.20-3.40); #Monocytes 0.6 thou/uL (0.11-0.59); #Neutrophils 4.1 thou/uL (1.40-6.50); %Basophils 0.3 % (0.0-1.0); %Eosinophils 5.2 % (0.0-10.0); %Lymphocytes 36.4 % (21.0-51.0); %Monocytes 7.1 % (0.0-10.0); Mean Corpuscular HGB CONC 32.2 g/dL (32.0-36.0); Mean Corpuscular Hemoglobin 33.8 pg (27.0-31.0); Mean Platelet Volume 7.7 fL (7.4-10.4); Platelet Count 204 thou/uL (130-400); RBC Distribution Width 13.2 % (11.5-14.5); Red Blood Cell (RBC) Count 3.26 mill/uL (4.20-5.40)
[2020-02-17 07:42] LABS: ALT (SGPT) 13 U/L (8-55); AST (SGOT) 31 U/L (5-34); Albumin 2.3 g/dL (3.4-4.8); Alkaline Phosphatase 74 U/L (40-110); Anion Gap 13 mmol/L (10-20); BUN (Urea Nitrogen) 9 mg/dL (9.8-20.1); Bilirubin, Total 0.7 mg/dL (0.2-1.2); Calc. Creatinine Clearance 90 mL/min (70-130); Calcium 9.2 mg/dL (7.8-10.44); Carbon Dioxide 25 mmol/L (23-31); Chloride 106 mmol/L (98-107); Globulin 3.6 g/dL (2.4-3.5); Glucose 91 mg/dL (83-110); Potassium 3.8 mmol/L (3.5-5.1); Protein, Total 5.9 g/dL (6.0-8.3); Sodium 140 mmol/L (136-145)
[2020-02-17] MEDS: Aspirin 81 mg Enteric Coated Tablet PO SCH (09:23)
[2020-02-17] MEDS: Amlodipine 10 MG TAB PO SCH (09:23)
[2020-02-17] MEDS: NIFEdipine XL 30 MG TAB PO SCH (09:23)
[2020-02-17] MEDS: Metoprolol Tartrate 100 MG TAB PO SCH (09:24)
[2020-02-17] MEDS: Cyanocobalamin (Vitamin B-12) 1,000 MCG TAB PO SCH (09:24)
[2020-02-17] MEDS: Enoxaparin Sodium 40 MG/0.4 ML SYRINGE SC SCH (09:25)
[2020-02-17] MEDS: Folic Acid 1 MG TAB PO SCH (09:25)
[2020-02-17 11:33] LABS: ANA Symphony (Qualitative) Negative (Negative); ANA Symphony (Quantitative) 0.2 Ratio (< 0.7 Negative); dsDNA IgG Antibody 0.8 IU/mL (<10 Negative)
[2020-02-17 12:23] LABS: EliA Thy New Method **** NEW METHOD ****; Thyroid Peroxidase IgG Ab Less than 4.0 IU/mL (<25 Normal)
--- NOTE | 2020-02-17 13:00 | PQF ---
CLINICAL DOCUMENTATION CLARIFICATION FORM: Dear Dr. Janie Young Date:02/17/2020 4046 Please exercise your independent, professional judgment in responding to the clarification form. Clinical indicators are provided on the bottom of this form for your review. Please check appropriate box(es): [ x] Protein Calorie Malnutrition: [ ] Mild [ ] Moderate [ x ] Severe [ ] Other Malnutrition (please specify) [ ] Underweight without malnutrition [ ] Cachexia [ ] Other diagnosis [ ] Unable to determine In addition, please specify: Present on Admission (POA): [ x ] Yes [ ] No [ ] Unable to determine For continuity of documentation, please document condition throughout progress notes and discharge summary. Thank You. To be completed by CDI/Coding staff for physician review: CLINICAL INDICATORS - SIGNS / SYMPTOMS / LABS / RESULTS AND LOCATION IN MR The pt reports her appetite has been terrible for at least the past monthshe is missing some teeth.she reported nausea and vomiting, diarrhea started several months ago with no improvement (RD/Assessment) 02/14 Nutrition Diagnosis Malnutrition Related to possibly diarrhea , poor appetite as Evidenced by mild pectoralis and deltoid muscle wasting, estimated intake < 50% of needs x 1 month, 8.8 % weight loss x 2 months suggestive of severe malnutrition in the context of acute illness ( RD Assessment) 02/14 Reports nausea, vomiting and diarrhea ( H&P/ [place]) 02/13 RISK FACTORS / RESULTS AND LOCATION IN MR UTI, Hypokalemia, nausea ( PN/ [place]) 02/16 TREATMENT / RESULTS AND LOCATION IN MR Dietary consult (02/14, 02/15) Recommend Ensure Enlive TID ( RD/ 02/14) Moderate Malnutrition (in acute illness) Energy Intake: <75% of estimated energy requirement for > 7 days Weight Loss: 1-2%/1 week; 5%/ 1 month; 7.5%/3 months Other: mild body fat loss; mild muscle mass loss; mild fluid accumulation; Severe Malnutrition (in acute illness) Energy Intake: = 50% of estimated energy requirement for = 5 days Weight Loss: >2%/1 week; >5%/1 month; >7.5%/3 months Other: moderate body fat loss; moderate muscle mass loss; moderate- severe fluid accumulation; measurably reduced endorsement clerk strength Moderate Malnutrition (in chronic illness) Energy Intake: <75% of estimated energy requirement for =1 month Weight Loss: 5%/1 month; 7.5%/3 months; 10%/6 months; 20%/1 year Other: mild body fat loss; mild muscle mass loss; mild fluid accumulation Severe Malnutrition (in chronic illness) Energy Intake: =75% of estimated energy requirement for =1 month Weight Loss: >5%/1 month; >7.5%/3 months; >10%/6 months; >20%/1 year Other: severe body fat loss; severe muscle mass loss; severe fluid accumulation; measurably reduced endorsement clerk strength Thank you! CDS Signature: Allyssa Vora RN Phone #: [phone] Date: 02/17/2020 This is a permanent part of the Medical Record [facility]
[2020-02-17 16:01] VITALS: BP 136/68; TEMP 98.6
--- NOTE | 2020-02-18 13:41 | DIS ---
DATE OF ADMISSION: 02/14/2020 DATE OF DISCHARGE: 02/17/2020 RESIDENT: Suresh Young MD. ADMITTING ATTENDING: Roberto Bowden MD. DISCHARGE ATTENDING: Alexandr Aguilar MD. CONSULTS: Case Management, PT, OT. PROCEDURES: 1. Chest x-ray, no evidence for acute cardiopulmonary process. 2. Chest CTA. a. No evidence for central segmental pulmonary embolism. b. Extensive atherosclerotic vascular calcification and irregular ulcerated mural plaque involving the descending thoracic aorta and visualized proximal abdominal aorta. c. Stable 1.4 cm saccular aneurysm involving the proximal descending thoracic aorta. 3. Abdominal ultrasound, hepatic cirrhosis, and a nonvisualized gallbladder. PRIMARY DIAGNOSES: 1. Weakness. 2. Nausea. 3. Hepatic cirrhosis. 4. Urinary tract infection. SECONDARY DIAGNOSES: Hypokalemia, history of deep vein thrombosis, hyperbilirubinemia, hypertension, poor primary care. DISCHARGE MEDICATIONS: 1. Metoprolol 50 mg p.o. b.i.d. 2. Aspirin 81 mg p.o. daily. 3. Sertraline 50 mg p.o. daily. 4. Omeprazole 20 mg p.o. daily. 5. Hydrocortisone acetate 25 mg [place] b.i.d. p.r.n. 6. Eliquis 2.5 mg p.o. b.i.d. 7. Folic acid 1 mg p.o. daily. 8. Procardia 30 mg p.o. daily. 9. Vitamin B12 1000 mcg p.o. daily. 10. Nystatin powder 1 g topical b.i.d. p.r.n. 11. Amlodipine 10 mg p.o. daily. 12. Zofran 4 mg p.o. q.6 hours p.r.n. 13. Reglan 10 mg p.o. b.i.d. Discontinued medications, none. HISTORY OF PRESENT ILLNESS AND HOSPITAL COURSE: Ms. Lance is a 74-year-old female here today with complaint of diffuse weakness. States she was unable to get off her couch for the last 6 days. Per ER record, set up teacups around her. She endorsed low-grade fever and had multiple UTIs and reports chills. The patient uses a walker for ambulation. States that she has agoraphobia and that she was unable to go to the clinic because of her agoraphobia and stayed at home. Reports vomiting that started about 2 weeks ago. Endorses chronic diarrhea. Denies blood in stool. No known COVID exposures or sick contacts. The patient reports decreased appetite that has been present for some time, but has been able to tolerate liquids. Today, the patient was not able to tolerate any food and her friend encouraged her to come to the ER. Reports chronic back pain, which is not new and tingling in extremities. Denies any headache or blurry vision. Reports not taking her medications at home for the last week or so. On admission, the patient was found to have a UTI and was started on Rocephin. She was also found to be hypokalemic with a potassium of 2.9. This was replaced. The patient reports chronic diarrhea that has been going on for several months. The nausea that has been going on for about 2 weeks. She explained she is not able to eat much because of her nausea. The patient was admitted and worked with PT and OT. She was started on Reglan for her nausea that suspected to be due to gastroparesis. She reported improvement in her nausea after a couple of days and was able to tolerate Ensure shakes which she really liked, though our desire was for patient to go to inpatient rehab. The patient declined due to financial situation. She only has Medicare Part A and explained that she could not afford to pay for regular doctor and PT visits while she was in rehab. In light of this situation, decision was made to send patient home with home health instead. The patient does not have a primary care provider and has provided our card, so we may see her or probably perform home visits. Of note, on right upper quadrant ultrasound, the patient was found to have cirrhosis. Hepatitis panel was negative as well as an autoimmune panel and ferritin was high at 300. The patient will need additional followup for this. GI was contacted during hospitalization and they advised outpatient followup. The patient also experienced vaginal bleeding during her stay, using the tampons every time she takes a blood thinner. The patient will also need gynecology follow up due to this vaginal bleeding. DISPOSITION: Stable. DISCHARGE INSTRUCTIONS: 1. Location: Home with home health. 2. Diet: Regular. 3. Activity: As tolerated. 4. Followup: Follow up with [facility] for primary care with GI outpatient to address cirrhosis seen on imaging and with Gynecology outpatient to address vaginal bleeding. Job ID: [id number] [facility]
[2020-02-18 15:14] LABS: Smooth Muscle Total ABS 20 Units (0-19)
[2020-02-18 16:14] LABS: Cytoplasmic (C-ANCA) <1:20 titer (Neg:<1:20); Myeloperoxidase AutoAbs <9.0 U/mL (0.0-9.0); Perinuclear (P-ANCA) <1:20 titer (Neg:<1:20); Proteinase-3 AutoAbs Less than 3.5 U/mL (0.0-3.5)
--- NOTE | 2020-02-19 11:53 | PQF ---
CLINICAL DOCUMENTATION CLARIFICATION FORM: Dear : Alexandr Aguilar MD Date / Time: 02/19/2020 Please exercise your independent, professional judgment in responding to the clarification form. Clinical indicators are provided on the bottom of this form for your review Please check appropriate box(es): [ ] Sepsis due to: [ ] Severe sepsis with associated acute organ dysfunction: [ ] Acute Respiratory Failure [ ] Acute Kidney injury w/o ATN [ ] Acute Kidney Injury w ATN [ ] Encephalopathy (metabolic) (septic) [ ] Disseminated Intravascular Coagulopathy (DIC) [ ] Hepatic Failure [ ] Additional/Other: please specify: [ ] Septic Shock [ ] Localized infection without sepsis [ ] SIRS due to non-infectious process (please specify etiology) [ ] with organ dysfunction [ ] without organ dysfunction [ x ] Other diagnosis sepsis ruled out (Please specify if any) [ ] Unable to determine Physician Signature: Date/Time: For continuity of documentation, please document condition throughout progress notes and discharge summary. Thank You. To be completed by CDI/Coding staff for physician review: Present Clinical Indicators - Signs / Symptoms / Labs Results and Location in Medical Record [ ] Altered mental status, increased confusion, obtunded [x] Fever or hypothermia (<96.8 F/36 C or > 100.4 F/38C) Low grade fever-H&P on 02/13 [ ] Respiratory rate >20/min, hypoxemia, and or hypercapnia [x] Heart Rate/Tachycardia (>90 bpm), SBP<100mmHg Pulse-100 Vitals on 02/14 [x] Concern for generalized weakness found to have sepsis with UTI treated appropriately with medications & IV fluids ED provider report on 02/13 [ ] Metabolic acidosis Lactic Acid >2mmol/L OR 36mg/dL, [ ] Oliguria , increase BUN/Cr, decreased GFR, elevated liver enzymes [x] Patient did not meet sepsis criteria H&P on 02/13 [ ] Shock-hypotension resistant to IV fluid boluses [ ] WBC count (>12,000/mm^4 or <4000/mm^3 or 70% neuts, 10% bands) [ ] Hyperglycemia in absence of diabetes mellitus [ ] Positive blood cultures Present Risk Factors Results and Location in Medical Record [ ] Infection/Bacteremia [x] Pneumonia, UTI, infected wound, gangrenous gall bladder Diabetes or Cancer H&P on 02/13 [ ] Surgery / surgical instrumentation / trauma Ruptured/perforated bowel, ruptured appendix [ ] Immunosuppression [x] Advancing Age- 74 yrs H&P on 02/13 Present Treatments Results and Location in Medical Record [ ] Initiation Sepsis Protocol ICU [ ] Daily CBC, blood/sputum/wound cx [ ] ID Consult [x] Vancomycin 1gm Medication on 02/13 [x] Rocephin 2 gm Medication on 02/13 [ ] Vasopressors, meds [ ] Consultants; ID, GI, Pulmonary, Hematology CDS/Chief Analytics Officer Signature: NADEEN Phone #: Date/Time: 02/19/2020 This is a permanent part of the Medical Record [facility]
--- NOTE | 2020-02-20 14:53 | EKG ---
Test Reason : WEAKNESS Blood Pressure : / mmHG Vent. Rate : 099 BPM Atrial Rate : 099 BPM P-R Int : 224 ms QRS Dur : 088 ms QT Int : 362 ms P-R-T Axes : 000 -11 241 degrees QTc Int : 464 ms Sinus rhythm with 1st degree A-V block Left ventricular hypertrophy with repolarization abnormality Abnormal ECG Confirmed by DREW GAY, IVY ([id number]), editor managing newspaper CHRISTA STOVER ([id number]) on 02/20/2020 2:52:35 PM Referred By: DREW Confirmed By:IVY RUSSELL MD
== END 2020-02-17 19:20 | disposition home health service (06) | DRG 689 ==
LOC: ERS 17:29 → T4-B 21:00
PROVIDERS: ADMIT Internal Medicine; ATTEND Internal Medicine
DX: N30.00 Acute cystitis without hematuria (principal); E43 Unspecified severe protein-calorie malnutrition; E87.6 Hypokalemia; F41.9 Anxiety disorder, unspecified; Z66 Do not resuscitate; Z51.5 Encounter for palliative care; M19.90 Unspecified osteoarthritis, unspecified site; E11.9 Type 2 diabetes mellitus without complications; E78.5 Hyperlipidemia, unspecified; R53.81 Other malaise; E86.0 Dehydration; E66.01 Morbid (severe) obesity due to excess calories; E80.6 Other disorders of bilirubin metabolism; F32.9 Major depressive disorder, single episode, unspecified; I10 Essential (primary) hypertension; Z88.6 Allergy status to analgesic agent; Z68.36 Body mass index [BMI] 36.0-36.9, adult; Z88.8 Allergy status to other drugs, medicaments and biological substances; Z79.899 Other long term (current) drug therapy; Z79.82 Long term (current) use of aspirin; Z79.01 Long term (current) use of anticoagulants; Z86.718 Personal history of other venous thrombosis and embolism; Z90.89 Acquired absence of other organs; K74.60 Unspecified cirrhosis of liver; Z20.828 Contact with and (suspected) exposure to other viral communicable diseases
CPT/HCPCS: 36415; 51701; 71045; 71275; 76705; 80053; 80061; 81003; 81015; 82248; 82550; 82728; 83036; 83516; 83520; 83605; 83630; 83690; 83735; 83880; 84100; 84145; 84443; 84484; 85025; 85379; 85610; 85730; 86038; 86225; 86256; 86376; 86707; 86709; 86780; 86803; 87040; 87045; 87046; 87081; 87086; 87324; 87328; 87329; 87340; 87389; 87427; 87449; 87493; 87635; 93005; 96365; 96367; 96375; J0696; J1650; J2405; J3370; J3490; Q9967; U0003

== ENCOUNTER 2020-02-27 15:14 | Inpatient (IN) | payer MEDICARE, OTHER ==
[2020-02-27 16:31] LABS: #Basophils 0.1 thou/uL (0.0-0.2); #Eosinphils 0.4 thou/uL (0.0-0.7); #Lymphocytes 2.8 thou/uL (1.20-3.40); #Monocytes 0.7 thou/uL (0.11-0.59); %Basophils 1.3 % (0.0-1.0); %Eosinophils 4.2 % (0.0-10.0); %Lymphocytes 31.2 % (21.0-51.0); %Monocytes 7.8 % (0.0-10.0); %Neutrophils 55.5 % (42.0-75.0); Mean Corpuscular HGB CONC 32.8 g/dL (32.0-36.0); Mean Corpuscular Hemoglobin 33.8 pg (27.0-31.0); Mean Platelet Volume 7.8 fL (7.4-10.4); Platelet Count 312 thou/uL (130-400); RBC Distribution Width 13.6 % (11.5-14.5); Red Blood Cell (RBC) Count 3.55 mill/uL (4.20-5.40); White Blood Cell (WBC) Count 8.9 thou/uL (4.8-10.8)
--- NOTE | 2020-02-27 16:35 | RAD ---
PORTABLE CHEST ONE VIEW: 02/27/20 at 4:16 p.m. HISTORY: Nausea, vomiting. COMPARISON: 02/04/20. FINDINGS/IMPRESSION: The heart size is prominent. The aorta is tortuous. There is evidence of old granulomatous disease. N o lobar consolidation, pneumothoraces, terence pulmonary edema or pleural effusions are seen. POS: OFF
[2020-02-27 16:56] LABS: ALT (SGPT) 20 U/L (8-55); AST (SGOT) 42 U/L (5-34); Albumin 2.6 g/dL (3.4-4.8); Alkaline Phosphatase 108 U/L (40-110); Anion Gap 15 mmol/L (10-20); BUN (Urea Nitrogen) 14 mg/dL (9.8-20.1); Bilirubin, Total 1.6 mg/dL (0.2-1.2); Calc. Creatinine Clearance 0 mL/min (70-130); Calcium 9.5 mg/dL (7.8-10.44); Carbon Dioxide 23 mmol/L (23-31); Chloride 105 mmol/L (98-107); Globulin 4.4 g/dL (2.4-3.5); Glucose 101 mg/dL (83-110); Potassium 4.1 mmol/L (3.5-5.1); Sodium 139 mmol/L (136-145)
[2020-02-27 17:09] LABS: Bacteria/HPF 4+ HPF (None Seen); Bilirubin Negative (Negative); Blood, Urine Negative (Negative); Clarity Clear (Clear); Glucose, Urine (Dipstick) Normal (Negative); Ketone, Urine Negative (Negative); Leukocyte 250 Leu/uL (Negative); Nitrite Negative (Negative); Protein, Urine (Dipstick) Negative (Neg-Trace); RBC/HPF 0-3 HPF (0-3); Specific Gravity, Urine 1.013 (1.002-1.036); Urobilinogen Normal mg/dL (Less than 2)
[2020-02-27] MEDS ORDERED: Piperacillin/Tazobactam 4.5 GM VIAL ONE (17:10)
[2020-02-27 19:28] LABS: Lactic Acid 1.9 mmol/L (0.5-2.2)
--- NOTE | 2020-02-27 19:43 | PDOC.FPRHP ---
- History of Present Illness Chief Complaint: N/V/D History of Present Illness: 74 y/o F w/PMHx agoraphobia, HTN, cirrhosis, hx of DVTs presents with c/o nausea, vomiting, and diarrhea. States symptoms have been present since she was discharged from the hospital several days ago. Immediately after discharge her symptoms were somewhat improved, had been tolerating soups, fluids, and Ensure. Last night and today she has return of watery stools similar to her symptoms prior to previous admission. Today, she denies any fever, chills, abdominal pain, dysuria, hematuria, melena, bloody stools. Reports generalized weakness, this has been ongoing for quite some time. Ambulating with walker for many years, now with increased difficulty getting around her house to perform ADLs. Requires help from her to move anywhere within the home, even with the use of her walker. This has been recently worsening. Admitted from 02/13-02/16 for similar symptoms. Discharge to inpatient rehab was discussed at that time, although ultimately patient was discharged to home due to possible financial restrictions. Also noted at that time to have vaginal bleeding while on eliquis, was recommended to have outpatient Gold Blower follow up. Eliquis prescribed due to history of at least 2 prior DVTs, she has not been taking this medication since discharge due to the bleeding and has not had any vaginal bleeding since stopping eliquis. Today, she does not have any chest pain or SOB at rest. Abdominal US performed during past admission revealed cirrhosis of the liver, outpatient GI evaluation was recommended. ED Course: 1L NS, zosyn - Allergies/Adverse Reactions Allergies Allergy/AdvReac Type Severity Reaction Status Date / Time codeine Allergy Verified 03/11/16 13:44 pentazocine [From Talwin] Allergy Verified 03/11/16 13:44 promazine [From Sparine] Allergy Verified 03/11/16 13:44 propoxyphene [From Darvon] Allergy Verified 03/11/16 13:44 - Home Medications Medication Instructions Recorded Confirmed Type Aspirin [Aspirin EC] 81 mg PO DAILY 12/19/19 02/14/20 History Omeprazole 20 mg PO DAILY 12/19/19 02/14/20 History Sertraline HCl 50 mg PO DAILY 12/19/19 02/14/20 History Apixaban [Eliquis] 2.5 mg PO BID #60 tab 12/29/19 02/14/20 Rx Cyanocobalamin (Vitamin B-12) 1,000 mcg PO DAILY #30 tab 12/29/19 02/14/20 Rx [Vitamin B-12] Folic Acid [Folvite] 1 mg PO DAILY #30 tab 12/29/19 02/14/20 Rx Hydrocortisone Acetate [Anusol-HC] 25 mg GA BIDPRN PRN #20 supp 12/29/19 02/14/20 Rx NIFEdipine [Procardia XL] 30 mg PO DAILY #30 tab 12/29/19 02/14/20 Rx Amlodipine [Norvasc] 10 mg PO DAILY #30 tab 02/17/20 Rx Metoclopramide HCl [Reglan] 10 mg PO 0700,1800 #30 tab 02/17/20 Rx Metoprolol Tartrate [Lopressor] 50 mg PO BID #30 tab 02/17/20 Rx Nystatin [Mycostatin Powder] 1 gm TOP BIDPRN PRN #1 bot 02/17/20 Rx Ondansetron [Zofran ODT] 4 mg PO Q6H PRN #30 tab 02/17/20 Rx - History PMHx: HTN, arthritis, obesity, anxiety/depression, DVTs, HLD, hx of DM (patient reports false diagnosis) PSHx: tonsillectomy FHx: Father - arthritis Social: denies alcohol drug or tobacco use; lives at home with - Review of Systems General: reports: weight/appetite/sleep changes (poor appetite, unsure of weight loss). denies: fever/chills Eyes: denies: eye pain, vision changes ENT: denies: nasal congestion, rhinorrhea Respiratory: reports: exercise intolerance. denies: cough, congestion, shortness of breath Cardiovascular: denies: chest pain, palpitation, edema Gastrointestinal: reports: nausea, vomiting, diarrhea. denies: constipation, abdominal pain, GI bleeding Genitourinary: denies: dysuria, polyuria Skin: reports: rashes Neurological: reports: weakness (generalized) Psychological: reports: anxiety, other (agoraphobia) - Vital signs BP: 127/66 HR: 118 RR: 17 Tmax: 98.4 F Pox: 94% on RA Wt: 127 kg - Physical Exam Constitutional: NAD, awake, alert and oriented, other (obese) HEENT: normocephalic and atraumatic, PERRLA, conjunctiva clear, no scleral icterus, grossly normal vision, grossly normal hearing, MMM, oropharynx clear, other (poor dentition) Neck: supple, no LAD Heart: no murmurs/rubs/gallops, pulses present, other (tachycardia, regular; bilateral upper extremity non-pitting edema) Lungs: CTAB, no respiratory distress, no rales/rhonchi, no wheezing Abdomen: soft, non-tender, bowel sounds present Musculoskeletal: other (bilateral hammertoes) Neurological: no focal deficit, other (bilateral feet 5/5 strength, bilateral quadricep strength 3/5) Skin: capillary refill <2 seconds, other (diffuse xerosis) Heme/Lymphatic: other (LUE bruising) Psychiatric: other (mildly anxious affect, somewhat tangential historian) FMR H&P: Results - Labs Result Diagrams: 02/28/20 04:48 02/28/20 04:48 Lab results: WBC 8.9 thou/uL (4.8-10.8) 02/27/20 16:14 Hgb 12.0 g/dL (12.0-16.0) 02/27/20 16:14 Hct 36.4 % (36.0-47.0) 02/27/20 16:14 MCV 103.0 fL (78.0-98.0) H 02/27/20 16:14 Plt Count 312 thou/uL (130-400) 02/27/20 16:14 Neutrophils % 55.5 % (42.0-75.0) 02/27/20 16:14 Sodium 139 mmol/L (136-145) 02/27/20 16:13 Potassium 4.1 mmol/L (3.5-5.1) 02/27/20 16:13 Chloride 105 mmol/L (98-107) 02/27/20 16:13 Carbon Dioxide 23 mmol/L (23-31) 02/27/20 16:13 BUN 14 mg/dL (9.8-20.1) 02/27/20 16:13 Creatinine 1.20 mg/dL (0.6-1.1) H 02/27/20 16:13 Glucose 101 mg/dL (83-110) 02/27/20 16:13 Lactic Acid 1.9 mmol/L (0.5-2.2) 02/27/20 19:03 Calcium 9.5 mg/dL (7.8-10.44) 02/27/20 16:13 Total Bilirubin 1.6 mg/dL (0.2-1.2) H 02/27/20 16:13 AST 42 U/L (5-34) H 02/27/20 16:13 ALT 20 U/L (8-55) 02/27/20 16:13 Alkaline Phosphatase 108 U/L (40-110) 02/27/20 16:13 Serum Total Protein 7.0 g/dL (6.0-8.3) 02/27/20 16:13 Albumin 2.6 g/dL (3.4-4.8) L 02/27/20 16:13 Urine Ketones Negative mg/dL (Negative) 02/27/20 16:05 Urine Blood Negative (Negative) 02/27/20 16:05 Urine Nitrite Negative (Negative) 02/27/20 16:05 Ur Leukocyte Esterase 250 Los/uL (Negative) A 02/27/20 16:05 Urine RBC 0-3 HPF (0-3) 02/27/20 16:05 Urine WBC 7-10 HPF (0-3) A 02/27/20 16:05 Ur Squamous Epith Cells 4-6 HPF (0-3) A 02/27/20 16:05 Urine Bacteria 4+ HPF (None Seen) A 02/27/20 16:05 - EKG Interpretation EKG: EKG: sinus tachycardia, LVH FMR H&P: A/P - Plan 74 y/o F who presents for n/v/d and generalized weakness: Mild dehydration 2/2 N/V/D Chronic symptoms although currently unable to tolerate PO intake and mildly tachycardic. s/p 1L NS and zosyn in ED. Recent admission with extensive stool studies that were negative including C. difficile. Suspect diarrhea may be due to mostly fluid intake with very few solid or semi-solid foods. - fluid rehydration with LR @ 125 cc/hr - will check procalcitonin, lipase - continue home reglan - zofran PRN - f/u blood cx drawn in ED - WBC wnl, will recheck in AM DAREN Most likely pre-renal due to inability to tolerate PO intake. Cr 1.2 on admission, baseline 0.8. - fluid rehydration as above - check Cr on AM labs Asymptomatic bacteruria 4+ bacteria, 4-6 squamous cells in ED. s/p zosyn in the ED. - will not treat further given lack of symptoms and likely dirty catch - f/u urine cx and will treat as needed Hx of DVTs Non-compliant with eliquis, unclear whether this is mostly due to bleeding or if this is due to cost. - ppx with lovenox while inpatient - will need to discuss with patient if she needs to be switched to warfarin Physical deconditioning - PT/OT consulted - CM consulted and post-acute screen requested Hepatic cirrhosis Newly diagnosed during recent hospitalization. Hepatitis panel negative at that time. No known history of Etoh. Consider fatty liver disease as possible etiology. - will need outpatient f/u with GI Stage 1 sacral ulcer - consult wound care - encourage frequent repositioning Vaginal bleeding No current vaginal bleeding. - recommend outpatient Gold Blower f/u - will monitor for symptoms while on lovenox - Hgb 12.0 on admission Chronic problems: HTN: Normotensive, continue home medications Anxiety/agoraphobia: continue home sertraline FMR H&P: Upper Level - Plan Date/Time: 02/27/201941 I, Dr. John Jaime PGY3, have evaluated this patient and agree with findings/plan as outlined by internal communications writer resident. Pertinent changes/additions are listed here. HPI 74 yo F with PMH of arthritis, DVTx2, HTN, newly diagnosed cirrhosis, chronic diarrhea, and obesity, recently admitted for UTI and deconditioning, presents for nausea with vomiting and diarrhea. She reports her diarrhea improved after her last hospital stay but she began having loose stools again 2- 3x daily, denies hematochezia or melena. Work up for GI infection was negative last visit. She has been drinking ensure, soups, and cranberry juice. She re ports some nausea with occasional vomiting. She denies dysuria, hematuria, or urinary frequency. She reports she has not been taking the Eliquis she was discharged with due to cost and because it causes vaginal bleeding, which she had last hospital stay. Last hospital stay her urine culture (collected before antibiotics) showed presumptive ecoli, <5000. ER: Pulse 118, normal WBC. UA showed +Leukocytes, WBC, squam 4-6, bacteria 4+, no nitrites. Cr 1.2. LA2.9. She was given 1L NS and 4.5 g IV zosyn @ 1730. CXR: Prominent heart size, aorta tortuous. No acute abnormalities. EKG: Prolonged GA of 152, possible LVH On physical exam, she has diffuse 4/5 weakness and is unable to support her trunk sitting up in the bed. Cardiac RRR, Lungs BCTA. Stage 1 sacral ulcer, with some slight erythema and excoriations on L breast. Assessment: Mild dehydration 2/2 nausea/vomiting/diarrhea, DAREN, asymptomatic bacteruria, diffuse weakness, lactic acidosis, hx of DVT. Plan: Mild dehydration 2/2 n/v/d: IV rehydration, reglan for nausea. Recent stool emilia dies were negative for infection. Encourage resuming normal diet. Diarrhea appears to be chronic per last hospital notes. DAREN: start MIVF as above, encourage PO hydration. Recheck in AM. Asymptomatic bacteriuria: Patient is asymptomatic for UTI, and UA shows significant squams and negative nitrites, with a recent culture negative for UTI. Plan to discontinue antibiotics and await culture results. Diffuse weakness: we will consult PT/OT and patient will likely need rehab placement. Lactic acidosis: resolved with fluids. Hx of DVT x2: Resume DVT ppx. For vaginal bleeding and cirrhosis diagnosed last hospital stay, patient will need outpatient follow up after discharge. Addendum - Attending - Attending Attestation Date/Time: 02/28/20 [id number] I personally evaluated the patient and discussed the management with Dr. Khalil/Addison. I agree with the History, Examination, Assessment and Plan documented above with any addition or exceptions noted below. Patient here with continued weakness, hypovolemia and diarrhea. Previous admiss ion had extensive workup that was negative for any pathologic cause of her diarrhea. Suspect dietary may be a component. She has mild DAREN due to her hypovolemia. Electrolyte replacement, IVF, PT, medication list review. Hopeful to convince her to go to rehab during this hospitalization as she is obviously not a good candidate for home therapy.
[2020-02-27] MEDS ORDERED: Hydrocortisone Acetate 25 MG Suppository PR PRN (19:53)
[2020-02-27] MEDS ORDERED: Nystatin Powder 15 GM BOT TOP PRN (19:53)
[2020-02-27] MEDS ORDERED: Ondansetron ODT 4 MG TAB PO PRN (19:58)
[2020-02-27] MEDS ORDERED: Acetaminophen 325 MG TAB PO PRN (19:58)
[2020-02-27] MEDS ORDERED: Ondansetron PF 4 MG/2 ML Vial IVP PRN (19:58)
[2020-02-27] MEDS: Metoprolol Tartrate 50 MG TAB PO SCH (20:40)
[2020-02-27] MEDS: Lactated Ringer's 1,000 ML IV SCH (20:41)
[2020-02-28 01:24] VITALS: BMI 47.7
[2020-02-28 05:14] LABS: #Basophils 0.1 thou/uL (0.0-0.2); #Eosinphils 0.5 thou/uL (0.0-0.7); #Lymphocytes 2.7 thou/uL (1.20-3.40); #Monocytes 0.9 thou/uL (0.11-0.59); #Neutrophils 4.6 thou/uL (1.40-6.50); %Basophils 1.1 % (0.0-1.0); %Eosinophils 5.4 % (0.0-10.0); %Lymphocytes 30.5 % (21.0-51.0); %Monocytes 10.3 % (0.0-10.0); %Neutrophils 52.7 % (42.0-75.0); Hemoglobin 10.7 g/dL (12.0-16.0); Mean Corpuscular HGB CONC 33.1 g/dL (32.0-36.0); Mean Platelet Volume 7.7 fL (7.4-10.4); Platelet Count 245 thou/uL (130-400); RBC Distribution Width 13.5 % (11.5-14.5); Red Blood Cell (RBC) Count 3.14 mill/uL (4.20-5.40); White Blood Cell (WBC) Count 8.7 thou/uL (4.8-10.8)
[2020-02-28 05:31] LABS: ALT (SGPT) 18 U/L (8-55); AST (SGOT) 35 U/L (5-34); Albumin 2.2 g/dL (3.4-4.8); Alkaline Phosphatase 93 U/L (40-110); Anion Gap 12 mmol/L (10-20); BUN (Urea Nitrogen) 14 mg/dL (9.8-20.1); Bilirubin, Total 1.5 mg/dL (0.2-1.2); Calc. Creatinine Clearance 85 mL/min (70-130); Calcium 9.1 mg/dL (7.8-10.44); Carbon Dioxide 24 mmol/L (23-31); Chloride 107 mmol/L (98-107); Globulin 3.8 g/dL (2.4-3.5); Glucose 92 mg/dL (83-110); Potassium 3.9 mmol/L (3.5-5.1); Sodium 139 mmol/L (136-145)
[2020-02-28] MEDS: Lactated Ringer's 1,000 ML IV SCH ×3 (05:45→22:28)
--- NOTE | 2020-02-28 05:46 | PDOC.FM ---
- Subjective Subjective: Pt resting comfortably this AM. No acute events overnight. States that she is having nausea this AM although improved. She has two bouts of watery diarrhea last night. She states that overall that her diarrhea has worsened since her last admission. - Objective Vital Signs & Weight: Vital Signs (12 hours) Temp Pulse Resp BP Pulse Ox 02/28/20 00:00 98.5 F 69 18 127/66 92 L 02/27/20 20:17 98.4 F 108 H 20 108/55 L 94 L Weight Weight 127 kg Result Diagrams: 02/28/20 04:48 02/28/20 04:48 Phys Exam - Physical Examination Constitutional: NAD HEENT: TM's clear Neck: supple Respiratory: no wheezing, no rales, no rhonchi, clear to auscultation bilateral Cardiovascular: RRR, no significant murmur, no rub Gastrointestinal: soft, non-tender, no distention, positive bowel sounds Musculoskeletal: no edema, pulses present Neurological: moves all 4 limbs Psychiatric: A&O x 3 Skin: cap refill <2 seconds Deviation from normal: cap refill > 2 secs Dx/Plan - Plan Plan: Mild dehydration 2/2 N/V/D Suspect diarrhea may be due to mostly fluid intake with very few solid or semi- solid foods - fluid rehydration with LR @ 120 cc/hr - continue home reglan, will change to once day dosing for now to see if this helps with diarrhea - zofran PRN - f/u blood cx drawn in ED - WBC wnl, will recheck in AM - procal 0.18, lactoferrin negative, lipase 22 DAREN Most likely pre-renal due to inability to tolerate PO intake. Cr 1.2 on admission, baseline 0.8. - fluid rehydration as above - Cr this Am 1.17 Asymptomatic bacteruria 4+ bacteria, 4-6 squamous cells in ED. s/p zosyn in the ED. - will not treat further given lack of symptoms and likely dirty catch - f/u urine cx and will treat as needed Hx of DVTs Non-compliant with eliquis, unclear whether this is mostly due to bleeding or if this is due to cost. - ppx with lovenox while inpatient - will need to discuss with patient if she needs to be switched to warfarin Physical deconditioning - PT/OT consulted - CM consulted and post-acute screen requested Hepatic cirrhosis Newly diagnosed during recent hospitalization. Hepatitis panel negative at that time. No known history of Etoh. Consider fatty liver disease as possible etiology. - will need outpatient f/u with GI Stage 1 sacral ulcer - consult wound care - encourage frequent repositioning Vaginal bleeding No current vaginal bleeding. - recommend outpatient Powerhouse Operator f/u - will monitor for symptoms while on lovenox - Hgb 12.0 on admission Chronic problems: HTN: Normotensive, continue home medications Anxiety/agoraphobia: continue home sertraline Dispo as of 02/28/20: Admitted to inpatient medical. Will control pt's symptoms. Will order c. diff assay today before starting anti-diarrheal medication. CM consulted for placement. Will follow that this week. Addendum - Attending - Attending Attestation Date/Time: 02/28/20 [id number] I personally evaluated the patient and discussed the management with Dr. Mckeon. I agree with the History, Examination, Assessment and Plan documented above with any addition or exceptions noted below. See attending attestation on H/P for today's details.
[2020-02-28] MEDS ORDERED: Metoclopramide HCl 10 MG TAB PO SCH (07:00)
[2020-02-28] MEDS ORDERED: Ondansetron PF 4 MG/2 ML Vial IVP SCH (07:45)
[2020-02-28] MEDS: Aspirin 81 mg Enteric Coated Tablet PO SCH (09:34)
[2020-02-28] MEDS: Enoxaparin Sodium 40 MG/0.4 ML SYRINGE SC SCH (09:34)
[2020-02-28] MEDS: Folic Acid 1 MG TAB PO SCH (09:35)
[2020-02-28] MEDS: Cyanocobalamin (Vitamin B-12) 1,000 MCG TAB PO SCH (09:36)
[2020-02-28] MEDS: Amlodipine 10 MG TAB PO SCH (09:36)
[2020-02-28] MEDS: Metoprolol Tartrate 50 MG TAB PO SCH ×2 (09:36→20:37)
[2020-02-28] MEDS: NIFEdipine XL 30 MG TAB PO SCH (09:37)
[2020-02-28 12:52] LABS: SARS-CoV-2 MS2 Positive; SARS-CoV-2 N Gene Negative; SARS-CoV-2 S Gene Negative; SARS-CoV-2 by NAA Not Detected (NotDetected); SARS-CoV-2 orf1ab Negative
[2020-02-29] MEDS: Metoclopramide HCl 10 MG TAB PO SCH (05:39)
[2020-02-29] MEDS: Lactated Ringer's 1,000 ML IV SCH (05:39)
--- NOTE | 2020-02-29 06:04 | PDOC.FM ---
- Subjective Subjective: Pt resting in bed this in AM. No acute events overnight. - Objective Vital Signs & Weight: Vital Signs (12 hours) Temp Pulse Resp BP Pulse Ox 02/29/20 04:05 98.3 F 86 16 128/70 94 L 02/28/20 23:03 98.4 F 80 16 165/67 H 94 L 02/28/20 19:07 98.1 F 95 18 149/72 H 93 L Weight Weight 127 kg I&O: 02/27/20 02/28/20 02/29/20 06:59 06:59 06:59 Intake Total 1000 2642 Output Total 1800 Balance 1000 842 Result Diagrams: 02/29/20 05:53 02/29/20 05:53 Phys Exam - Physical Examination Constitutional: NAD on NC in room HEENT: moist MMs Neck: supple Respiratory: no wheezing, no rales, no rhonchi, clear to auscultation bilateral Cardiovascular: RRR, no significant murmur, no rub Gastrointestinal: soft, non-tender, no distention, positive bowel sounds Musculoskeletal: pulses present Neurological: moves all 4 limbs Psychiatric: normal affect, A&O x 3 Skin: normal turgor Dx/Plan - Plan Plan: Mild dehydration 2/2 N/V/D Suspect diarrhea may be due to mostly fluid intake with very few solid or semi- solid foods - fluid rehydration with LR @ 120 cc/hr - blood clx 1/2 + for staph epidermis, contaminant - procal 0.18, lactoferrin negative, lipase 22 - zofran PRN - continue home reglan, will change to once day dosing for now to see if this helps with diarrhea - Cdiff Ag positive, however remains toxin negative DAREN Most likely pre-renal due to inability to tolerate PO intake. Cr 1.2 on admission, baseline 0.8. - fluid rehydration as above - Cr this AM 1.11, improving slowly Asymptomatic bacteruria 4+ bacteria, 4-6 squamous cells in ED. s/p zosyn in the ED. - will not treat further given lack of symptoms and likely dirty catch - f/u urine cx and will treat as needed Hx of DVTs Non-compliant with eliquis, unclear whether this is mostly due to bleeding or if this is due to cost. - ppx with lovenox while inpatient - will need to discuss with patient if she needs to be switched to warfarin Physical deconditioning - PT/OT consulted stating recs for SNF on 02/27 - CM consulted and post-acute screen requested Hepatic cirrhosis Newly diagnosed during recent hospitalization. Hepatitis panel negative at that time. No known history of Etoh. Consider fatty liver disease as possible etiology. - will need outpatient f/u with GI Stage 1 sacral ulcer - consult wound care - encourage frequent repositioning Vaginal bleeding No current vaginal bleeding. 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 Will continue control pt's symptoms. PT recommended SNF. CM consulted for placement. Will follow that today.
[2020-02-29 06:19] LABS: #Basophils 0.1 thou/uL (0.0-0.2); #Eosinphils 0.7 thou/uL (0.0-0.7); #Monocytes 0.6 thou/uL (0.11-0.59); #Neutrophils 3.2 thou/uL (1.40-6.50); %Basophils 0.8 % (0.0-1.0); %Eosinophils 9.2 % (0.0-10.0); %Lymphocytes 38.9 % (21.0-51.0); %Monocytes 8.4 % (0.0-10.0); %Neutrophils 42.7 % (42.0-75.0); Mean Corpuscular Hemoglobin 35.9 pg (27.0-31.0); Mean Platelet Volume 8.3 fL (7.4-10.4); Platelet Count 235 thou/uL (130-400); RBC Distribution Width 13.7 % (11.5-14.5); Red Blood Cell (RBC) Count 3.06 mill/uL (4.20-5.40); White Blood Cell (WBC) Count 7.6 thou/uL (4.8-10.8)
[2020-02-29 06:37] LABS: ALT (SGPT) 18 U/L (8-55); AST (SGOT) 50 U/L (5-34); Alkaline Phosphatase 80 U/L (40-110); Anion Gap 13 mmol/L (10-20); BUN (Urea Nitrogen) 10 mg/dL (9.8-20.1); Calc. Creatinine Clearance 89 mL/min (70-130); Calcium 8.6 mg/dL (7.8-10.44); Carbon Dioxide 20 mmol/L (23-31); Chloride 109 mmol/L (98-107); Globulin 4.2 g/dL (2.4-3.5); Glucose 83 mg/dL (83-110); Potassium 4.4 mmol/L (3.5-5.1); Protein, Total 6.2 g/dL (6.0-8.3); Sodium 138 mmol/L (136-145)
[2020-02-29] MEDS: Enoxaparin Sodium 40 MG/0.4 ML SYRINGE SC SCH (10:22)
[2020-02-29] MEDS: Folic Acid 1 MG TAB PO SCH (10:22)
[2020-02-29] MEDS: Cyanocobalamin (Vitamin B-12) 1,000 MCG TAB PO SCH (10:22)
[2020-02-29] MEDS: Metoprolol Tartrate 50 MG TAB PO SCH ×2 (10:22→20:05)
[2020-02-29] MEDS: Aspirin 81 mg Enteric Coated Tablet PO SCH (10:22)
[2020-02-29] MEDS: NIFEdipine XL 30 MG TAB PO SCH (10:22)
[2020-02-29] MEDS: Amlodipine 10 MG TAB PO SCH (10:31)
[2020-02-29] MEDS ORDERED: Lactinex Tablet PO SCH (12:45)
[2020-02-29] MEDS ORDERED: Metamucil PACK PO SCH (12:45)
--- NOTE | 2020-02-29 14:22 | PRG ---
DATE OF SERVICE: 02/29/2020 Ms. Lance is a pleasant 74-year-old lady, who has had a previous extensive workup for chronic diarrhea. I suspect there is an element of ischemic colitis contributing to her problems and I would recommend a regular diet along with added probiotics such as yogurt and bulking agents. She also had an episode of vaginal bleeding, which postmenopausally demands a workup to include a look at her endometrium. This can be done by her CORRESPONDENCE REPRESENTATIVE as an outpatient. Job ID: [id number]
--- NOTE | 2020-02-29 15:44 | ULT ---
PELVIC ULTRASOUND: Date: 02/29/2020 HISTORY: Postmenopausal vaginal bleeding. FINDINGS: Transabdominal exam was performed. The patient refused endovaginal exam. Uterus is not visualized. The bladder is poorly distended. Ovaries are not identified. IMPRESSION: Nondiagnostic exam. Uterus and ovaries are not identified. POS: AGW
[2020-03-01] MEDS: Metoclopramide HCl 10 MG TAB PO SCH (05:58)
--- NOTE | 2020-03-01 06:10 | PDOC.FM ---
- Subjective Subjective: Pt resting in bed this AM. No acute events overnight. States that her nausea has improved. No diarrhea. Ate well last night for dinner. States that she is hesitant now to go to SNF placement. States that she wants to talk to her about it first and see if she will be able to get his help at home. When asked about why she is so hesistant she states that she does not want to go back to [facility] and that she does not want to go there "just for therapy." - Objective Vital Signs & Weight: Vital Signs (12 hours) Temp Pulse Resp BP Pulse Ox 03/01/20 03:47 98.4 F 76 16 146/74 H 95 02/29/20 23:33 98.2 F 70 16 142/68 H 95 02/29/20 21:05 96 02/29/20 20:12 98.1 F 76 16 145/70 H 90 L Weight Admit Weight 127.006 kg Weight 127 kg I&O: 02/28/20 02/29/20 03/01/20 06:59 06:59 06:59 Intake Total 1000 2642 1680 Output Total 1800 1700 Balance 1000 842 -20 Result Diagrams: 03/01/20 05:18 03/01/20 05:18 Phys Exam - Physical Examination Constitutional: NAD HEENT: moist MMs Neck: supple Respiratory: no wheezing, no rales, no rhonchi, clear to auscultation bilateral Cardiovascular: RRR, no significant murmur, no rub Gastrointestinal: soft, non-tender, no distention, positive bowel sounds Musculoskeletal: pulses present Neurological: moves all 4 limbs Psychiatric: normal affect, A&O x 3 Skin: normal turgor Dx/Plan - Plan Plan: Mild dehydration 2/2 N/V/D Suspect diarrhea may be due to mostly fluid intake with very few solid or semi- solid foods - fluid rehydration with LR @ 120 cc/hr - blood clx 1/2 + for staph epidermis, contaminant - procal 0.18, lactoferrin negative, lipase 22 - zofran PRN - continue home reglan, will change to once day dosing for now to see if this helps with diarrhea - Cdiff Ag positive, however remains toxin negative - Started bulking agents and probiotics 02/28 DAREN Most likely pre-renal due to inability to tolerate PO intake. Cr 1.2 on admission, baseline 0.8. - fluid rehydration as above - Recent Cr 1.11, improving slowly Asymptomatic bacteruria 4+ bacteria, 4-6 squamous cells in ED. s/p zosyn in the ED. - will not treat further given lack of symptoms and likely dirty catch - f/u urine cx and will treat as needed Hx of DVTs Non-compliant with eliquis, unclear whether this is mostly due to bleeding or if this is due to cost. - ppx with lovenox while inpatient - will need to discuss with patient if she needs to be switched to warfarin Physical deconditioning - PT/OT consulted stating recs for SNF on 02/27 - CM consulted and post-acute screen requested Hepatic cirrhosis Newly diagnosed during recent hospitalization. Hepatitis panel negative at that time. No known history of Etoh. Consider fatty liver disease as possible etiology. - will need outpatient f/u with GI Stage 1 sacral ulcer - consult wound care - encourage frequent repositioning Vaginal bleeding No current vaginal bleeding. Transvaginal u/s ordered 02/28 and transabdominal u/s ordered instead due to pt denying TV. She also states that probably will not see outpatient DESIGN QUALITY ENGINEER recommendation through as she does not want to go through any procedures. - will monitor for symptoms while on lovenox - Hgb 12.0 on admission Chronic problems: HTN: BPs have been somewhat controlled, seems that her BP is high in the evenings, she is currently on home medications at this time. Anxiety/agoraphobia: continue home sertraline Dispo as of 03/01: Pt has been accepted at SNF on 02/28. Pt in stable medical condition and will be advised to proceed with SNF transfer.
[2020-03-01 06:11] LABS: ALT (SGPT) 17 U/L (8-55); AST (SGOT) 36 U/L (5-34); Albumin 2.2 g/dL (3.4-4.8); Alkaline Phosphatase 93 U/L (40-110); Anion Gap 9 mmol/L (10-20); BUN (Urea Nitrogen) 9 mg/dL (9.8-20.1); Bilirubin, Total 0.8 mg/dL (0.2-1.2); Calc. Creatinine Clearance 101 mL/min (70-130); Calcium 8.7 mg/dL (7.8-10.44); Carbon Dioxide 28 mmol/L (23-31); Chloride 106 mmol/L (98-107); Globulin 3.8 g/dL (2.4-3.5); Glucose 117 mg/dL (83-110); Sodium 139 mmol/L (136-145)
[2020-03-01 06:18] LABS: #Basophils 0.1 thou/uL (0.0-0.2); #Eosinphils 0.5 thou/uL (0.0-0.7); #Monocytes 0.6 thou/uL (0.11-0.59); %Basophils 1.2 % (0.0-1.0); %Eosinophils 6.7 % (0.0-10.0); %Lymphocytes 36.3 % (21.0-51.0); %Monocytes 7.4 % (0.0-10.0); %Neutrophils 48.4 % (42.0-75.0); Hemoglobin 10.9 g/dL (12.0-16.0); Mean Corpuscular HGB CONC 32.5 g/dL (32.0-36.0); Mean Corpuscular Hemoglobin 33.9 pg (27.0-31.0); Platelet Count 246 thou/uL (130-400); RBC Distribution Width 13.4 % (11.5-14.5); Red Blood Cell (RBC) Count 3.22 mill/uL (4.20-5.40); White Blood Cell (WBC) Count 8.2 thou/uL (4.8-10.8)
[2020-03-01] MEDS: Aspirin 81 mg Enteric Coated Tablet PO SCH (07:57)
[2020-03-01] MEDS: Amlodipine 10 MG TAB PO SCH (07:57)
[2020-03-01] MEDS: Metoprolol Tartrate 50 MG TAB PO SCH (07:57)
[2020-03-01] MEDS: Folic Acid 1 MG TAB PO SCH (07:58)
[2020-03-01] MEDS: NIFEdipine XL 30 MG TAB PO SCH (07:58)
[2020-03-01] MEDS: Cyanocobalamin (Vitamin B-12) 1,000 MCG TAB PO SCH (07:58)
[2020-03-01] MEDS: Enoxaparin Sodium 40 MG/0.4 ML SYRINGE SC SCH (07:59)
[2020-03-01] MEDS ORDERED: Lactinex Tablet PO SCH (09:00)
[2020-03-01] MEDS ORDERED: Metamucil PACK PO SCH (09:00)
--- NOTE | 2020-03-01 13:53 | PRG ---
DATE OF SERVICE: 03/01/2020 I reviewed the note of Dr. Simran Mckeno and agree with her assessment plan. Job ID: [id number]
[2020-03-01 15:16] LABS: Hematocrit 31.3 % (34.0-46.6); RBC Folate Test Component 1380 ng/mL (>498)
[2020-03-01 16:06] VITALS: BP 115/68; TEMP 98.6
--- NOTE | 2020-03-02 06:42 | DIS ---
DATE OF ADMISSION: 02/29/2020 DATE OF DISCHARGE: 03/01/2020 RESIDENT: Simran Mckeon DO ADMITTING ATTENDING: Deangelo Cm MD DISCHARGE ATTENDING: Malik Jennings MD CONSULTS: None. PROCEDURES: Chest x-ray done on 02/27/2020 showed no acute cardiac process. Pelvic ultrasound done transabdominally on 02/28/2020 showed bladder poorly distended. Ovaries not identified. Uterus not visualized. Nondiagnostic exam. PRIMARY DIAGNOSES: Intractable nausea, vomiting, diarrhea with mild dehydration, DAREN, history of deep vein thromboses, physical deconditioning. SECONDARY DIAGNOSES: Hepatic cirrhosis, stage I sacral ulcer, vaginal bleeding history, hypertension, anxiety/agoraphobia. DISCHARGE MEDICATIONS: 1. Aspirin 81 daily. 2. Sertraline 50 mg p.o. daily. 3. Omeprazole 20 mg p.o. daily. 4. Anusol 25 mg p.r. b.i.d. 5. Eliquis 2.5 mg p.o. b.i.d. 6. Folic acid 1 mg p.o. daily. 7. Procardia 30 mg p.o. daily. 8. Vitamin B12, 1000 mcg p.o. daily. 9. Nystatin 1 g b.i.d. p.r.n. 10. Norvasc 10 mg p.o. daily. 11. Zofran 4 mg p.o. q.6h p.r.n. 12. Reglan 10 mg p.o. b.i.d. 13. Lopressor 50 mg p.o. b.i.d. 14. Lactobacillus one tab p.o. daily. 15. Metamucil one pack p.o. daily. DISCONTINUED MEDICATIONS: None. HISTORY OF PRESENT ILLNESS/HOSPITAL COURSE: The patient is a 74-year-old lady with a past medical history of above, who was recently admitted for UTI and deconditioning, who presented for nausea, vomiting, and diarrhea. She reportedly had her diarrhea improved on our last hospitalization, but she began to have loose stools again 2 to 3 times daily. She denied hematochezia or melena. Her workup for GI infection was negative at her last hospitalization. Since leaving the hospital, she has been drinking Ensure soups and cranberry juice. She reports some nausea and occasional vomiting. She denied dysuria, hematochezia, or polyuria. She reported that she had not been taking Eliquis that she was discharged with due to cost and also that it was causing vaginal bleeding. The patient had refused discharge to inpatient rehab at our last hospitalization due to financial restrictions and an abdominal ultrasound performed during that time revealed cirrhosis of the liver. An outpatient GI evaluation was recommended for this. The patient had been ambulating with a walker for many years and now had increased difficulty getting around her home, performing her ADLs, and she was requiring help from her at home who also has multiple medical conditions. She states that this recently has been worsening. During patient's hospitalization, we controlled her nausea with medication and the patient's diarrhea improved with bulking agents and probiotic medication. The patient was tested again for C diff as she was in her last previous hospitalization and this was also positive for angina, but was negative for the toxin. A transvaginal ultrasound was ordered for patient for her compliant of vaginal bleeding, however she denied wanting this and only allowed transabdominal ultrasound which did not yield useful information. Physical Therapy, Occupational Therapy worked with the patient and it was shown that she was having problems with endurance and her generalized weakness. I recommended that she go to a [facility] unit. The patient was initially hesitant for this plan; however, with discussion with her , she decided that this would be the best option for her at this time. The patient was deemed stable enough for discharge. DISPOSITION: Stable. DISCHARGE INSTRUCTIONS: Location: retirement unit. Diet: Regular. Activity: As tolerated. Followup: Within 1 to 2 weeks after discharge from [facility] unit. Job ID: [id number] [facility]
--- NOTE | 2020-03-03 06:47 | PQF ---
CLINICAL DOCUMENTATION CLARIFICATION FORM: Dear : Malik Choi Date / Time: 03/03/20 0646 Please exercise your independent, professional judgment in responding to the clarification form. Clinical indicators are provided on the bottom of this form for your review Based on your clinical judgment, can you please specify etiology of patients nausea and vomiting? Please check appropriate box(es): [ ] Acute cystitis [ ] Ischemic Colitis [ ] Liver Cirrhosis [ ] Other diagnosis [ ] Unable to determine Physician Signature: Date/Time: For continuity of documentation, please document condition throughout progress notes and discharge summary. Thank You To be completed by CDI/Coding staff for physician review: Present Clinical Indicators - Signs / Symptoms / Labs Results and Location in Medical Record [x] Urinalysis : pH 7.0, Leukocytes Esterase 250, Bacteria 4+ Laboratory 02/26 [x] Urine Culture: Enterobacter cloacae complex Microbiology 02/26 [x] Acute cystitis ED notes p9 [x] Presents with c/o nausea, vomitng and diarrhea H&P p1 02/26 Dr Khalil [x] Mild dehdyration 2/2 N/V/D H&P p4 02/26 Dr Khalil [x] Asymtomatic bacteruria H&P p5 02/26 Dr Khalil [x] I suspect there is an element of ischemic colitis contributing to her problem PN p1 02/28 Dr Fofana Present Risk Factors Results and Location in Medical Record [x] 74 year-old Female H&P p1 02/26 Dr Khalil [x] HTN H&P p1 02/26 Dr Khalil [x] Hx of Cirrhosis H&P p1 02/26 Dr Khalil [x] Obesity H&P p1 02/26 Dr Khalil [x] DM H&P p1 02/26 Dr Khalil [x] DAREN H&P p5 02/26 Dr Khalil Present Treatments Results and Location in Medical Record [x] IVF NS 1L MAY 27 [x] IV Protonix 40 mg MAY 27 [x] IV Zofran 4 mg MAY 27 [x] Reglan 10 mg oral MAY 27 [x] IV Lactated Ringers 1L MAY 27 [x] IV Zosyn 4.5 gm MAY 27 CDS/Dental Assisting Instructor Signature: Jennifer Wooten Phone #: ext [phone] Date/Time: 03/03/2020 0646 This is a permanent part of the Medical Record [facility]
--- NOTE | 2020-03-05 10:58 | EKG ---
Test Reason : Blood Pressure : / mmHG Vent. Rate : 111 BPM Atrial Rate : 111 BPM P-R Int : 152 ms QRS Dur : 076 ms QT Int : 344 ms P-R-T Axes : 047 -17 230 degrees QTc Int : 467 ms Sinus tachycardia Left ventricular hypertrophy with repolarization abnormality Inferior infarct , age undetermined Abnormal ECG Confirmed by ANGE KENNEDY DO ([id number]), news video editor CHRISTA STOVER ([id number]) on 03/05/2020 10:57:53 AM Referred By: Confirmed By:ANEG KENNEDY DO
== END 2020-03-01 17:00 | DRG 683 ==
LOC: ERS 15:14 → SJJU 18:51 → OBSVTOIN 02-29 08:31
PROVIDERS: ADMIT Student in an Organized Health Care Education/Training Program; ATTEND Student in an Organized Health Care Education/Training Program
DX: N17.9 Acute kidney failure, unspecified (principal); E87.2 Acidosis; Z68.42 Body mass index [BMI] 45.0-49.9, adult; R11.2 Nausea with vomiting, unspecified; R82.71 Bacteriuria; Z20.828 Contact with and (suspected) exposure to other viral communicable diseases; F40.00 Agoraphobia, unspecified; I10 Essential (primary) hypertension; K74.60 Unspecified cirrhosis of liver; E86.0 Dehydration; L89.151 Pressure ulcer of sacral region, stage 1; N93.9 Abnormal uterine and vaginal bleeding, unspecified; E86.1 Hypovolemia; M19.90 Unspecified osteoarthritis, unspecified site; E11.9 Type 2 diabetes mellitus without complications; F32.9 Major depressive disorder, single episode, unspecified; E66.9 Obesity, unspecified; R19.7 Diarrhea, unspecified; Z86.718 Personal history of other venous thrombosis and embolism; Z79.01 Long term (current) use of anticoagulants; Z87.440 Personal history of urinary (tract) infections; Z79.899 Other long term (current) drug therapy; Z79.82 Long term (current) use of aspirin
CPT/HCPCS: 36415; 51702; 71045; 76857; 80053; 81003; 81015; 82607; 82747; 83605; 83690; 84145; 85025; 87040; 87077; 87086; 87149; 87186; 87324; 87449; 87493; 87635; 93005; 96365; 96372; 96375; G0378; J1650; J2405; J2543; U0003

== ENCOUNTER 2020-03-08 10:22 | Inpatient (IN) | payer MEDICARE ==
[2020-03-08 11:17] LABS: PTT 25.5 sec (22.9-36.1)
[2020-03-08 11:18] LABS: INR-International Normal Ratio 1.4; Prothrombin Time 17.6 sec (12.0-14.7)
[2020-03-08 11:19] LABS: #Basophils 0.1 thou/uL (0.0-0.2); #Eosinphils 0.1 thou/uL (0.0-0.7); #Lymphocytes 3.3 thou/uL (1.20-3.40); #Monocytes 0.9 thou/uL (0.11-0.59); #Neutrophils 11.3 thou/uL (1.40-6.50); %Basophils 0.5 % (0.0-1.0); %Eosinophils 0.5 % (0.0-10.0); %Lymphocytes 21.3 % (21.0-51.0); %Monocytes 5.5 % (0.0-10.0); %Neutrophils 72.2 % (42.0-75.0); Hemoglobin 7.4 g/dL (12.0-16.0); Mean Corpuscular HGB CONC 32.8 g/dL (32.0-36.0); Mean Corpuscular Hemoglobin 34.5 pg (27.0-31.0); Mean Platelet Volume 9.6 fL (7.4-10.4); Platelet Count 224 thou/uL (130-400); RBC Distribution Width 13.5 % (11.5-14.5); Red Blood Cell (RBC) Count 2.14 mill/uL (4.20-5.40); White Blood Cell (WBC) Count 15.6 thou/uL (4.8-10.8)
[2020-03-08 11:35] LABS: ALT (SGPT) 12 U/L (8-55); AST (SGOT) 36 U/L (5-34); Albumin 2.4 g/dL (3.4-4.8); Alkaline Phosphatase 70 U/L (40-110); Anion Gap 15 mmol/L (10-20); BUN (Urea Nitrogen) 23 mg/dL (9.8-20.1); Bilirubin, Total 1.2 mg/dL (0.2-1.2); Calc. Creatinine Clearance 0 mL/min (70-130); Carbon Dioxide 22 mmol/L (23-31); Chloride 104 mmol/L (98-107); Globulin 3.8 g/dL (2.4-3.5); Glucose 103 mg/dL (83-110); Potassium 5.2 mmol/L (3.5-5.1); Protein, Total 6.2 g/dL (6.0-8.3); Sodium 136 mmol/L (136-145)
[2020-03-08 11:51] LABS: MDiff Complete? YES; Macrocytosis SLIGHT = 6-15 cells (100X) (0-5/hpf); Platelet Morphology Comment Appears Adequate; Polychromasia SLIGHT = 2-3 cells (100X) (0-2/hpf)
--- NOTE | 2020-03-08 12:16 | CT ---
CT Abdomen Pelvis WO Con 03/08/2020 11:53 AM HISTORY: Vaginal bleeding for 2 days. Passed large clot. Patient became hypotensive. Patient metallic was. Wea kness and abdominal pain. Dysuria. COMPARISON: 12/23/2019 Technique: Multiple contiguous axial CT images are obtained through the abdomen and pelvis without IV contrast. Coronal reformats are provided. FINDINGS: This examination is limited for the evaluation of solid organs and vascular structures due to the lac k of intravenous contrast. Lower Chest: Calcified left hilar lymph node is present. There is a calcified granuloma at the left l manan base. Bibasilar atelectasis is present. There is a stable 5 mm pulmonary nodule medial aspect right middle lobe with a smaller approximately 4 mm pulmonary nodule right lateral costophrenic angle also seen on the prior exam. The bilateral pleural effusions have resolved with only minimal atelectasis now present at each lung base. Liver: Calcified granulomata present. Gallbladder: Decompressed. Pancreas: Grossly normal nonenhanced CT appearance. Spleen: Multiple splenic granulomata. Adrenals: Grossly normal nonenhanced CT appearance. Kidneys and ureters: Left kidney is atrophic with severe renal cortical thinning. Multiple nonobstruc ting left renal calculi are again seen. Stable subcentimeter difficult to characterize hypodense exophytic lesion is seen in the midportion right kidney. No right renal or ureteral calculus is visua lized. No left ureteral calculus is present. There is no hydronephrosis. Urinary bladder: Incompletely distended. Reproductive Organs: There is prominence in the region of the cervix as well as heterogeneity. There is punctate focus of gas seen in the region of the vagina, and there is also heterogeneous and predominantly increased density material within the region of the vaginal vault suggesting hemorrhage . Uterus is similar to prior exam. Lymph Nodes: No enlarged lymph nodes are seen by CT size criteria. Bowel: Small amount retained fecal material seen in the colon. Loops of small bowel are normal in ajma iber. Appendix: The appendix is normal in caliber. Peritoneum/Retroperitoneum: Stable minimal inflammatory stranding is seen in a presacral location. No fluid or fluid collection is seen in the abdomen or pelvis. Vessels: Vascular calcifications are seen in the abdominal aorta and iliac arteries. The thoracic aor ta the level of the aortic hiatus is mildly dilated measuring 3.7 cm.. Abdominal Wall: There is a hypodense collection seen in the anterolateral subcutaneous adipose layer of the lower pelvis measuring 3.3 cm was just a small fat fluid level. This is likely related to improving hematoma which previously measured 4.4 cm. The adjacent straining on the prior exam has als o improved. Bones: Degenerative changes are seen in the spine. Trace anterolisthesis of L4 on L5 is present. IMPRESSION: 1. Heterogeneity and predominantly increased density in the region of the vaginal vault suggesting he morrhage. There also appears to be prominence of the cervix, but this is not well evaluated on CT exam. 2. Stable pulmonary nodules right lung base. 3. Resolution of bilateral pleural effusions with residual minimal atelectasis at each lung base. 4. Atrophic left kidney with severe renal cortical thinning and multiple nonobstructing calculi. This is stable compared to prior exam. No ureteral calculus is seen bilaterally. A stable subcentimeter hypodense lesion is seen involving the right kidney. 5. Minimal stable inflammatory stranding in a presacral location. 6. Improving hematoma in the adipose tissues right anterolateral pelvis.
[2020-03-08 13:04] LABS: Bilirubin 1+ (Negative); Blood, Urine Trace (Negative); Clarity Turbid (Clear); Glucose, Urine (Dipstick) Normal (Negative); Ketone, Urine Negative (Negative); Leukocyte 500 Leu/uL (Negative); Nitrite Negative (Negative); Protein, Urine (Dipstick) 20 mg/dL (Neg-Trace); Specific Gravity, Urine 1.024 (1.002-1.036); Urobilinogen 3 mg/dL (Less than 2)
[2020-03-08 13:06] LABS: Bacteria/HPF 1+ HPF (None Seen)
[2020-03-08] MEDS ORDERED: cefTRIAXone\\ROCEPHIN 2 GM VIAL ONE (13:32)
--- NOTE | 2020-03-08 13:38 | ULT ---
Pelvic sonogram transabdominal imaging HISTORY: Pelvic pain. COMPARISON: 02/29/2020. FINDINGS: Transabdominal imaging only. Patient declined transvaginal imaging. Urinary bladder is decompressed. No fluid collections or free fluid are evident within the pelvis. Ovaries and uterus not identified. IMPRESSION : Limited exam, as patient declined transvaginal imaging. Normal anatomic structures not visualized. No free fluid or fluid collections evident within the pelvis. No masses visualized.
[2020-03-08 14:17] LABS: Hemoglobin 8.2 g/dL (12.0-16.0); Platelet Count 192 thou/uL (130-400)
[2020-03-08] MEDS ORDERED: Ondansetron ODT 4 MG TAB PO PRN (17:09)
[2020-03-08] MEDS ORDERED: Acetaminophen 325 MG TAB PO PRN (17:09)
[2020-03-08] MEDS ORDERED: Ondansetron PF 4 MG/2 ML Vial IVP PRN (17:09)
[2020-03-08 17:17] LABS: Lactic Acid 2.5 mmol/L (0.5-2.2)
[2020-03-08 17:50] LABS: Hemoglobin 9.2 g/dL (12.0-16.0)
--- NOTE | 2020-03-08 18:52 | PDOC.FPRHP ---
- History of Present Illness Chief Complaint: SOB History of Present Illness: 74 y/o F presented to the ED today from [place] after having vaginal bleeding onset today. Pt has hx of vaginal bleeding and had been having this issue while being on blood thinning medications for her hx of DVTs. In the ED pt was evaluated for her vaginal bleeding by ED physician and OB physician who had determined that pt would need to have higher level of care at facility that had SALVAGE INSPECTOR-ONC as her most likely source of bleeding in her age group would be endometrial CA. However, pt refused the transfer. While in ED, pt had apparently become hypotensive and was give 1U pRBCs as at one point she was actively dispelling blood and clots from her vagina. This has now since resolved. CT abd/pelvis demonstrated cervical prominance with vaginal bleeding. Stable R lung nodule and other chronic findings. TVUS was difficult to obtain and was unable to visualize endometrium, uterus, or ovaries. Pt was to be admitted for symptomatic anemia. ED Course: s/p 1 U PBRCs 2g rocephin - Allergies/Adverse Reactions Allergies Allergy/AdvReac Type Severity Reaction Status Date / Time codeine Allergy Verified 03/11/16 13:44 pentazocine [From Talwin] Allergy Verified 03/11/16 13:44 promazine [From Sparine] Allergy Verified 03/11/16 13:44 propoxyphene [From Darvon] Allergy Verified 03/11/16 13:44 - Home Medications Medication Instructions Recorded Confirmed Type Aspirin [Aspirin EC] 81 mg PO DAILY 12/19/19 03/08/20 History Omeprazole 20 mg PO DAILY 12/19/19 03/08/20 History Sertraline HCl 50 mg PO DAILY 12/19/19 03/08/20 History Apixaban [Eliquis] 2.5 mg PO BID #60 tab 12/29/19 03/08/20 Rx Cyanocobalamin (Vitamin B-12) 1,000 mcg PO DAILY #30 tab 12/29/19 03/08/20 Rx [Vitamin B-12] Folic Acid [Folvite] 1 mg PO DAILY #30 tab 12/29/19 03/08/20 Rx Hydrocortisone Acetate [Anusol-HC] 25 mg NM BIDPRN PRN #20 supp 12/29/19 03/08/20 Rx NIFEdipine [Procardia XL] 30 mg PO DAILY #30 tab 12/29/19 03/08/20 Rx Amlodipine [Norvasc] 10 mg PO DAILY #30 tab 02/17/20 03/08/20 Rx Metoprolol Tartrate [Lopressor] 50 mg PO BID #30 tab 02/17/20 03/08/20 Rx Ondansetron [Zofran ODT] 4 mg PO Q6H PRN #30 tab 02/17/20 03/08/20 Rx - History PMHx: -HTN -Arthritis -Obesity -Anxiety/Depression -DVTs -HLD PSHx: -Tonsillectomy FHx: -Arthritis Social: -Denies ETOH, drug use, tobacco use. - Review of Systems General: reports: fatigue. denies: fever/chills ENT: denies: nasal congestion, rhinorrhea Respiratory: denies: cough, congestion, shortness of breath Cardiovascular: denies: chest pain, palpitation, edema Gastrointestinal: denies: nausea, vomiting, diarrhea, constipation Genitourinary: denies: incontinence, dysuria, polyuria, discharge Musculoskeletal: denies: pain, tenderness Neurological: denies: numbness, syncope, seizure, weakness Psychological: reports: depression - Vital signs BP: 115/68, HR 79, Temp 98.4, 2L NC O2 99% - Physical Exam Constitutional: NAD, awake, alert and oriented, well developed HEENT: normocephalic and atraumatic, grossly normal vision, grossly normal hearing, other (pale appearing, pale palepebra conjunctiva) Neck: supple Heart: RRR, normal S1/S2 -Heart: 3/6 systolic murmur Lungs: CTAB, no respiratory distress, good air movement, no wheezing, no retractions Abdomen: soft, non-tender, bowel sounds present, no masses/distention Musculoskeletal: normal structure Psychiatric: normal mood and affect, good judgment and insight, intact recent and remote memory FMR H&P: Results - Labs Result Diagrams: 03/08/20 17:28 03/08/20 10:41 Lab results: WBC 15.6 thou/uL (4.8-10.8) H 03/08/20 10:41 Hgb 9.2 g/dL (12.0-16.0) L 03/08/20 17:28 Hct 28.4 % (36.0-47.0) L 03/08/20 17:28 MCV 105.0 fL (78.0-98.0) H 03/08/20 10:41 Plt Count 192 thou/uL (130-400) 03/08/20 14:01 Neutrophils % 72.2 % (42.0-75.0) 03/08/20 10:41 Sodium 136 mmol/L (136-145) 03/08/20 10:41 Potassium 5.2 mmol/L (3.5-5.1) H 03/08/20 10:41 Chloride 104 mmol/L (98-107) 03/08/20 10:41 Carbon Dioxide 22 mmol/L (23-31) L 03/08/20 10:41 BUN 23 mg/dL (9.8-20.1) H 03/08/20 10:41 Creatinine 2.14 mg/dL (0.6-1.1) H 03/08/20 10:41 Glucose 103 mg/dL (83-110) 03/08/20 10:41 Lactic Acid 2.5 mmol/L (0.5-2.2) H 03/08/20 16:48 Calcium 9.0 mg/dL (7.8-10.44) 03/08/20 10:41 Total Bilirubin 1.2 mg/dL (0.2-1.2) 03/08/20 10:41 AST 36 U/L (5-34) H 03/08/20 10:41 ALT 12 U/L (8-55) 03/08/20 10:41 Alkaline Phosphatase 70 U/L (40-110) 03/08/20 10:41 Serum Total Protein 6.2 g/dL (6.0-8.3) 03/08/20 10:41 Albumin 2.4 g/dL (3.4-4.8) L 03/08/20 10:41 Urine Ketones Negative mg/dL (Negative) 03/08/20 12:43 Urine Blood Trace (Negative) A 03/08/20 12:43 Urine Nitrite Negative (Negative) 03/08/20 12:43 Ur Leukocyte Esterase 500 Los/uL (Negative) A 03/08/20 12:43 Urine RBC 4-6 HPF (0-3) A 03/08/20 12:43 Urine WBC 7-10 HPF (0-3) A 03/08/20 12:43 Ur Squamous Epith Cells 4-6 HPF (0-3) A 03/08/20 12:43 Urine Bacteria 1+ HPF (None Seen) A 03/08/20 12:43 - Radiology Interpretation Other Status: report reviewed by me (Transabdominal u/s: limited exam no free fluid seen, no masses visualized CT abdomen/pelvis: heterogenity in vaginal vault suggesting hemorrhage) FMR H&P: A/P - Plan ##Symptomatic anemia 2/2 Vaginal bleeding - High suspicion for SALVAGE INSPECTOR malignancy, specifically uterine cancer - CT pelvis without acute findings. TVUS unable to visualize uterus, ovaries, or endometrium. Would benefit from endometrial biopsy and SALVAGE INSPECTOR/ONC workup - Patient decline [facility] transfer - Hb 7.4, transfused 1u pRBC in ED - Will trend H/H and monitor bleeding - Palliative to assist with goals of care - Continue to hold Eliquis and ASA ##DAREN - Cr 2.14, baseline 0.98 at discharge last week - s/p transfusion, will begin LR @ 100cc/hr and trend with AM labs ##Asymptomatic bacteruria - Given Rocephin in ED, no sxs, dirty catch - UCx pending ##Hx of DVTs -based on patient's bleeding will keep patient off of any anticoagulation as above ##Physical deconditioning -aware -PT/OT/CM consulted ##Hepatic Cirrhosis -aware -will need outpatient management ##Stage 1 sacral ulcer -aware, wound care consulted ##Depression - Likely based off history, consider SSRI -hx of anxiety and agoraphobia as well ##HTN - Hold home BP meds PCP: CC -BB VTE: HELD Diet: HH Code: Full - Palliative to assist as patient is "unsure" Dispo: Admitted to medical. Will continue to monitor symptoms. FMR H&P: Upper Level - Plan Date/Time: 03/08/201850 Latesha Serna MD, have evaluated this patient and agree with findings/plan as outlined by property management intern resident. Pertinent changes/additions are listed here. See property management intern documentation for full H/P, ROS, PE, and A/P. CC: Fatigue/dizziness HPI/ROS: 74yo h/o HTN, anxiety, DVT previously on Eliquis who presents for symptomatic anemia. Patient presented SNF for vaginal bleeding with fatigue/dizziness. Patient herself is poor historian. Of note, patient was recently admitted for intractable n/v and deconditioning and subsequently found to have vaginal bleeding with concern for SALVAGE INSPECTOR malignancy however refused US or further workup. Patient today denies CP, SOB, n/v. She states she does not want to know if she has cancer, does not want treatment. She also states she is depressed, lacks energy, no motivation, and does not enjoy even spending time with her anymore. In the ED she was transfused 1u pRBC, Given Rocephin 2g, 2L NS, BCx. CT abd/pelvis demonstrated cervical prominance with vaginal bleeding. Stable R lung nodule and other chronic findings. TVUS was difficult to obtain and was unable t o visualize endometrium, uterus, or ovaries. Laborist was called to ED who preformed spec exam with clots and recommended transfer to [facility] for eval of SALVAGE INSPECTOR/ONC. Patient, however refused transfer and was admitted for sx anemia. PE: 97kg, 97.8, 100 on 2L, 24, 113. Resting comfortably, NAD, depressed mood EOMI, PERRLA, neck supple, trachea midline CTAB RRR without murmurs ABd soft, nontender, nondistended, normoactive bowel sounds Ext without edema A/P: 74yo h/o HTN, anxiety, DVT previously on Eliquis who presents for symptomatic anemia. #Symptomatic anemia 2/2 Vaginal bleeding - Fatigue, tachycardia, dizziness - High suspicion for SALVAGE INSPECTOR malignancy, specifically uterine cancer - CT pelvis without acute findings. TVUS unable to visualize uterus, ovaries, or endometrium. Would benefit from endometrial biopsy and SALVAGE INSPECTOR/ONC workup - Patient decline [facility] transfer - Hb 7.4, transfused 1u pRBC in ED - Will trend H/H and monitor bleeding - Palliative to assist with goals of care - Continue to hold Eliquis and ASA #DAREN - Cr 2.14, baseline 0.98 at discharge last week - s/p transfusion, will begin LR @ 100cc/hr and trend renal function daily #Asymptomatic bacteruria - Given Rocephin in ED, no sxs, dirty catch - UCx pending #Depression - Likely based off history, consider SSRI #HTN - Hold home BP meds PCP: CC -BB VTE: HELD Diet: HH Code: Full - Palliative to assist as patient is "unsure" IVF: LR @ 100cc/hr Dispo: Admit to medical for sx anemia 2/2 vaginal bleeding with suspected SALVAGE INSPECTOR malignancy. Palliative for goals of care, consider depression treatment. Transfuse 1u pRBC and monitor.
[2020-03-08 19:38] VITALS: BMI 37.1
[2020-03-08] MEDS: Lactated Ringer's 1,000 ML IV SCH (19:59)
[2020-03-09 02:21] LABS: SARS-CoV-2 MS2 Positive; SARS-CoV-2 N Gene Negative; SARS-CoV-2 S Gene Negative; SARS-CoV-2 by NAA Not Detected (NotDetected); SARS-CoV-2 orf1ab Negative
[2020-03-09] MEDS: Lactated Ringer's 1,000 ML IV SCH ×4 (04:25→23:59)
--- NOTE | 2020-03-09 05:56 | PDOC.FM ---
- Subjective Subjective: Pt resting in bed this AM. No acute events overnight. This AM has blood clots in diaper. Was not c/o dizziness/lightheadedness. Had long discussion about goals of care and it seems that patient would like to discuss her wishes with her . She would like to find source of bleeding and find out what is going on, however, would like to discuss this with her first. - Objective Vital Signs & Weight: Vital Signs (12 hours) Temp Pulse Resp BP Pulse Ox 03/09/20 04:38 97.5 F L 103 H 18 100/65 100 03/09/20 00:28 97.9 F 101 H 20 104/66 100 03/08/20 20:00 100 03/08/20 19:09 97.9 F 106 H 20 89/56 L 100 03/08/20 18:20 98.4 F 112 H 18 97/65 99 Weight Weight 98.174 kg Result Diagrams: 03/09/20 08:48 03/08/20 10:41 Phys Exam - Physical Examination Constitutional: NAD HEENT: moist MMs Neck: supple Respiratory: no wheezing, no rales, no rhonchi, clear to auscultation bilateral Cardiovascular: RRR, no significant murmur, no rub Gastrointestinal: soft, non-tender, no distention, positive bowel sounds Dx/Plan - Plan Plan: ##Symptomatic anemia 2/2 Vaginal bleeding There is high suspicion for BASKETBALLS AND FOOTBALLS REVERSER CA. Pt's wishes after long discussion is that she would like to find out why she is having vaginal bleeding and would like to have this investigated. Would like to include in discussion. Will continue to have dialogue about this today. - Hb 7.4 on admission, transfused 2u pRBC in ED, most recent Hgb was 9.2 - Will trend H/H and monitor bleeding - Palliative to assist with goals of care - Continue to hold Eliquis and ASA ##DAREN - most likely pre-renal in nature - Cr 2.14, baseline 0.98 at discharge last week - s/p transfusion, will begin LR @ 100cc/hr and trend with AM labs ##Asymptomatic bacteruria - Given Rocephin in ED, no sxs, dirty catch - UCx pending ##Hx of DVTs -based on patient's bleeding will keep patient off of any anticoagulation as above ##Physical deconditioning -aware -PT/OT/CM consulted ##Hepatic Cirrhosis -aware -will need outpatient management ##Stage 1 sacral ulcer -aware, wound care consulted ##Depression - Likely based off history, consider SSRI -hx of anxiety and agoraphobia as well ##HTN - Hold home BP meds PCP: None, BB VTE: HELD Diet: HH Code: FULL Dispo as of 03/09: Admitted to medical. Has had some bleeding this AM. Will monitor vitals closely. Will give bolus of NS and obtain stat H/H and BMP at this time. Pt might need transfusion. Will discuss with patient about higher level of care necessary for BASKETBALLS AND FOOTBALLS REVERSER Onc.
[2020-03-09] MEDS ORDERED: Hydrocortisone Acetate 25 MG Suppository PR PRN (05:59)
[2020-03-09] MEDS ORDERED: Ondansetron ODT 4 MG TAB PO PRN (05:59)
[2020-03-09] MEDS: Folic Acid 1 MG TAB PO SCH (08:34)
[2020-03-09] MEDS: Amlodipine 10 MG TAB PO SCH (08:34)
[2020-03-09] MEDS: Cyanocobalamin (Vitamin B-12) 1,000 MCG TAB PO SCH (08:34)
[2020-03-09] MEDS: Metoprolol Tartrate 50 MG TAB PO SCH ×2 (08:35→20:02)
[2020-03-09] MEDS ORDERED: Sodium Chloride 0.9% 500 ML IVPB SCH (09:00)
[2020-03-09 09:04] LABS: Hemoglobin 8.8 g/dL (12.0-16.0); Platelet Count 197 thou/uL (130-400)
[2020-03-09 09:23] LABS: Anion Gap 17 mmol/L (10-20); BUN (Urea Nitrogen) 24 mg/dL (9.8-20.1); Calc. Creatinine Clearance 34 mL/min (70-130); Calcium 8.4 mg/dL (7.8-10.44); Carbon Dioxide 17 mmol/L (23-31); Chloride 107 mmol/L (98-107); Glucose 117 mg/dL (83-110); Potassium 5.1 mmol/L (3.5-5.1); Sodium 136 mmol/L (136-145)
[2020-03-09] MEDS ORDERED: Ciprofloxacin 500 MG TAB PO SCH (17:15)
--- NOTE | 2020-03-10 05:55 | PDOC.FM ---
- Subjective Subjective: Pt resting comfortably in bed this AM. No acute events overnight. Per nursing, pt had some light spotting but no blood clots or hypotensive episodes. - Objective Vital Signs & Weight: Vital Signs (12 hours) Temp Pulse Resp BP Pulse Ox 03/10/20 04:00 97.9 F 80 22 H 101/63 100 03/10/20 03:26 80 03/10/20 00:00 98.3 F 117 H 20 113/66 100 03/09/20 23:00 98.2 F 100 18 113/66 100 03/09/20 20:00 100 03/09/20 19:45 98.8 F 121 H 20 101/58 L 100 Weight Admit Weight 71.35 kg Weight 98.174 kg I&O: 03/08/20 03/09/20 03/10/20 06:59 06:59 06:59 Intake Total 2600 Balance 2600 Result Diagrams: 03/09/20 08:48 03/09/20 08:48 Phys Exam - Physical Examination Constitutional: NAD HEENT: moist MMs Neck: supple Respiratory: no wheezing, no rales, no rhonchi, clear to auscultation bilateral Cardiovascular: RRR, no significant murmur, no rub Gastrointestinal: soft, non-tender, no distention, positive bowel sounds Dx/Plan - Plan Plan: ##Symptomatic anemia 2/2 Vaginal bleeding Pt and had long discussions with our team yesterday about goals of care for pt and in conclusion patient does not want further evaluation and treatment for her bleeding at this time. She has elected to go home with hospice and this is currently in the works for her. Palliative care also assisted with goals of care. - VSS stable at this point - Continue to hold Eliquis and ASA ##Asymptomatic bacteruria - UCx showing preliminary psuedomonas, started po abx at this time ##DAREN - most likely pre-renal in nature - Cr 2.14, baseline 0.98 at discharge last week - has mIVF at this time Chronic Conditions: ##Hx of DVTs: based on patient's bleeding will keep patient off of any anticoagulation as above ##Physical deconditioning: aware ##Hepatic Cirrhosis: aware ##Stage 1 sacral ulcer: aware, wound care consulted ##Depression: is on SSRI a this time; hx of anxiety and agoraphobia as well ##HTN: hold home BP meds PCP: None, BB VTE: HELD Diet: HH Code: DNR Dispo as of 03/10: Pt yesterday elected home with hospice. This is currently in the works for her.
[2020-03-10 07:26] VITALS: TEMP 97.7
[2020-03-10] MEDS: Folic Acid 1 MG TAB PO SCH (09:20)
[2020-03-10] MEDS: Cyanocobalamin (Vitamin B-12) 1,000 MCG TAB PO SCH (09:20)
[2020-03-10] MEDS: Metoprolol Tartrate 50 MG TAB PO SCH (09:41)
[2020-03-10] MEDS: Amlodipine 10 MG TAB PO SCH (09:41)
[2020-03-10] MEDS: Lactated Ringer's 1,000 ML IV SCH (11:23)
[2020-03-10 13:43] VITALS: BP 108/68
[2020-03-10] MEDS ORDERED: Ciprofloxacin 500 MG TAB PO SCH (20:00)
== END 2020-03-10 14:52 | disposition hospice, home (50) | DRG 760 ==
LOC: ERS 10:22 → T4-A 16:31
PROVIDERS: ADMIT Family Medicine; ATTEND Family Medicine
PROC: 30233N1 Transfusion of Nonautologous Red Blood Cells into Peripheral Vein, Percutaneous Approach (ICD-10-PCS; principal; 2020-03-08)
DX: N93.9 Abnormal uterine and vaginal bleeding, unspecified (principal); D62 Acute posthemorrhagic anemia; N39.0 Urinary tract infection, site not specified; N17.9 Acute kidney failure, unspecified; E66.9 Obesity, unspecified; K74.60 Unspecified cirrhosis of liver; Z51.5 Encounter for palliative care; Z66 Do not resuscitate; M19.90 Unspecified osteoarthritis, unspecified site; I10 Essential (primary) hypertension; E11.9 Type 2 diabetes mellitus without complications; K21.9 Gastro-esophageal reflux disease without esophagitis; E78.5 Hyperlipidemia, unspecified; R53.81 Other malaise; L89.151 Pressure ulcer of sacral region, stage 1; F41.9 Anxiety disorder, unspecified; F32.9 Major depressive disorder, single episode, unspecified; Z88.8 Allergy status to other drugs, medicaments and biological substances; Z88.6 Allergy status to analgesic agent; Z90.89 Acquired absence of other organs; Z79.899 Other long term (current) drug therapy; Z86.718 Personal history of other venous thrombosis and embolism; Z79.82 Long term (current) use of aspirin; Z79.01 Long term (current) use of anticoagulants; Z68.37 Body mass index [BMI] 37.0-37.9, adult; Z20.828 Contact with and (suspected) exposure to other viral communicable diseases
CPT/HCPCS: 36415; 36416; 36430; 51701; 74176; 76857; 80048; 80053; 81003; 81015; 83605; 84484; 85014; 85018; 85025; 85049; 85610; 85730; 86850; 86900; 86901; 87040; 87077; 87086; 87186; 87635; 93005; 96365; J0696; J7030; P9016; U0003

== ENCOUNTER 2022-11-20 17:04 | Inpatient (IN) | payer MEDICARE, SELFPAY ==
[2022-11-20 18:53] LABS: #Eosinphils 0.1 thou/uL (0.0-0.7); #Monocytes 0.4 thou/uL (0.11-0.59); #Neutrophils 7.8 thou/uL (1.40-6.50); %Basophils 0.2 % (0.0-1.0); %Eosinophils 0.7 % (0.0-10.0); %Lymphocytes 18.9 % (21.0-51.0); %Monocytes 3.9 % (0.0-10.0); %Neutrophils 75.3 % (42.0-75.0); Hematocrit 33.3 % (36.0-47.0); Hemoglobin 11.1 g/dL (12.0-16.0); Mean Corpuscular HGB CONC 33.3 g/dL (32.0-36.0); Mean Corpuscular Hemoglobin 36.9 pg (27.0-31.0); Mean Corpuscular Volume 110.6 fl (78.0-98.0); Platelet Count 124 10x3/uL (130-400); RBC Distribution Width 19.9 % (11.5-14.5); Red Blood Cell (RBC) Count 3.01 mill/uL (4.20-5.40); White Blood Cell (WBC) Count 10.4 10x3/uL (4.8-10.8)
[2022-11-20 19:16] LABS: ALT (SGPT) 31 U/L (8-55); AST (SGOT) 124 U/L (5-34); Albumin 2.4 g/dL (3.4-4.8); Alkaline Phosphatase 170 U/L (40-110); Anion Gap 18 mmol/L (10-20); BUN (Urea Nitrogen) 54 mg/dL (9.8-20.1); Bilirubin, Total 2.2 mg/dL (0.2-1.2); Calc. Creatinine Clearance 0 mL/min (70-130); Carbon Dioxide 21 mmol/L (23-31); Chloride 98 mmol/L (98-107); Estimated GFR 41; Globulin 4.4 g/dL (2.4-3.5); Glucose 69 mg/dL (83-110); Magnesium 2.2 mg/dL (1.6-2.6); Potassium 4.1 mmol/L (3.5-5.1); Protein, Total 6.8 g/dL (5.8-8.1); Sodium 133 mmol/L (136-145)
[2022-11-20 19:20] LABS: Troponin I 0.011 ng/mL (< 0.028)
[2022-11-20 19:41] LABS: Anisocytosis SLIGHT = 6-15 cells HPF (0-5); Burr Cells SLIGHT = 2-5 cells HPF (0-1); CellaVision Operator ID LAB.MJL; Macrocytosis SLIGHT = 6-15 cells HPF (0-5); Platelet Adequacy Comment Platelets Decreased; Poikilocytosis SLIGHT = 6-15 cells HPF (0-5); Polychromasia SLIGHT = 2-3 cells HPF (0-2); Spherocytes SLIGHT = 1-5 cells HPF (None Seen)
[2022-11-20] MEDS ORDERED: Acetaminophen 325 MG TAB PO PRN (22:21)
[2022-11-20] MEDS ORDERED: Ondansetron PF 4 MG/2 ML Vial IVP PRN (22:21)
[2022-11-20] MEDS ORDERED: Ondansetron ODT 4 MG TAB PO PRN (22:21)
[2022-11-20] MEDS ORDERED: Dextrose 5%-Lactated Ringers 1,000 ML IV SCH (22:30)
[2022-11-20 23:32] VITALS: BMI 29.0
[2022-11-21 05:47] LABS: #Monocytes 1.2 thou/uL (0.11-0.59); #Neutrophils 9.9 thou/uL (1.40-6.50); %Basophils 0.1 % (0.0-1.0); %Eosinophils 0.1 % (0.0-10.0); %Lymphocytes 18.7 % (21.0-51.0); %Monocytes 8.5 % (0.0-10.0); %Neutrophils 71.7 % (42.0-75.0); Hematocrit 34.1 % (36.0-47.0); Hemoglobin 11.4 g/dL (12.0-16.0); Mean Corpuscular HGB CONC 33.4 g/dL (32.0-36.0); Mean Corpuscular Hemoglobin 37.5 pg (27.0-31.0); Mean Corpuscular Volume 112.2 fl (78.0-98.0); Mean Platelet Volume 9.2 fL (7.4-10.4); Platelet Count 122 10x3/uL (130-400); RBC Distribution Width 19.9 % (11.5-14.5); Red Blood Cell (RBC) Count 3.04 mill/uL (4.20-5.40); White Blood Cell (WBC) Count 13.8 10x3/uL (4.8-10.8)
[2022-11-21 06:07] LABS: Anion Gap 18 mmol/L (10-20); BUN (Urea Nitrogen) 54 mg/dL (9.8-20.1); Calc. Creatinine Clearance 40 mL/min (70-130); Calcium 11.6 mg/dL (7.8-10.44); Carbon Dioxide 19 mmol/L (23-31); Chloride 100 mmol/L (98-107); Estimated GFR 38; Glucose 100 mg/dL (83-110); Potassium 4.2 mmol/L (3.5-5.1); Sodium 133 mmol/L (136-145)
[2022-11-21 06:33] LABS: Bacteria/HPF 4+ HPF (None Seen); Bilirubin Negative (Negative); Blood, Urine 3+ (Negative); CAUTI Indications for Culture Alt mental st,lethar; Clarity Extra Turbid (Clear); Glucose, Urine (Dipstick) Normal (Negative); Ketone, Urine Negative (Negative); Leukocyte 500 Leu/uL (Negative); Nitrite Negative (Negative); Protein, Urine (Dipstick) 100 mg/dL (Neg-Trace); RBC/HPF 21-50 HPF (0-3); Specific Gravity, Urine 1.011 (1.002-1.036); Squamous Epithelial None Seen HPF (0-3); Urobilinogen 3 mg/dL (Less than 2); WBC/HPF Greater than 50 HPF (0-3); pH, Urine 5.5 (5.0-9.0)
[2022-11-21 06:34] LABS: Urine Culture Reflex Yes Yes
[2022-11-21] MEDS: Famotidine 20 MG TAB PO SCH (09:48)
[2022-11-21] MEDS: Famotidine/PF 20 mg/2ml Vial SLOW IVP SCH (09:49)
[2022-11-21] MEDS ORDERED: Sodium Chloride 0.9% 500 ML IV SCH (20:45)
[2022-11-21] MEDS ORDERED: Acetaminophen 650 MG Suppository PR PRN (20:55)
[2022-11-21] MEDS ORDERED: Hyoscyamine SL 0.125 MG TAB SL PRN (20:55)
[2022-11-22 04:32] VITALS: BP 74/52; TEMP 97.5
[2022-11-22] MEDS ORDERED: Sodium Chloride 0.9% 1,000 ML IV SCH ×2 (08:30)
[2022-11-22] MEDS ORDERED: cefTRIAXone\\ROCEPHIN 1 GM in Sodium Chloride 0.9% 100 ML IVPB SCH (09:00)
[2022-11-22] MEDS: Famotidine/PF 20 mg/2ml Vial SLOW IVP SCH (10:03)
[2022-11-22] MEDS: Famotidine 20 MG TAB PO SCH (10:03)
== END 2022-11-22 14:06 | disposition hospice, inpatient (51) | DRG 543 ==
LOC: ERS 17:04 → SJJU 21:04
PROVIDERS: ADMIT Student in an Organized Health Care Education/Training Program; ATTEND Family Medicine
DX: M84.559A Pathological fracture in neoplastic disease, hip, unspecified, initial encounter for fracture (principal); C79.51 Secondary malignant neoplasm of bone; N17.9 Acute kidney failure, unspecified; N39.0 Urinary tract infection, site not specified; I10 Essential (primary) hypertension; M19.90 Unspecified osteoarthritis, unspecified site; E11.9 Type 2 diabetes mellitus without complications; K21.9 Gastro-esophageal reflux disease without esophagitis; F41.9 Anxiety disorder, unspecified; F32.A Depression, unspecified; Z74.01 Bed confinement status; Z88.6 Allergy status to analgesic agent; Z88.8 Allergy status to other drugs, medicaments and biological substances; Z79.899 Other long term (current) drug therapy; E83.52 Hypercalcemia; E66.01 Morbid (severe) obesity due to excess calories; Z51.5 Encounter for palliative care; R62.7 Adult failure to thrive; Z68.29 Body mass index [BMI] 29.0-29.9, adult; C53.9 Malignant neoplasm of cervix uteri, unspecified; Z66 Do not resuscitate; R54 Age-related physical debility
CPT/HCPCS: 36415; 71045; 72170; 80048; 80053; 81001; 83735; 84484; 85025; 87086; 93005; 96360; 97139; J0696; J3490; J7050; S0028

== ENCOUNTER 2022-11-22 12:14 | Inpatient (IN) | payer OTHER ==
[2022-11-22 14:14] VITALS: BMI 29.0
[2022-11-22] MEDS ORDERED: Scopolamine 1.5 mg/72 hour Patch TOP PRN (15:15)
[2022-11-22] MEDS ORDERED: Lorazepam 2 MG/ML VIAL SLOW IVP PRN (15:15)
[2022-11-22] MEDS ORDERED: Acetaminophen 650 MG Suppository PR PRN (15:15)
[2022-11-22] MEDS ORDERED: Ondansetron PF 4 MG/2 ML Vial IVP PRN (15:15)
[2022-11-22] MEDS ORDERED: Haloperidol Lactate 5 MG/ML VIAL SLOW IVP PRN (15:15)
[2022-11-22] MEDS ORDERED: fentaNYL 50 mcg/mL 1 mL Vial SLOW IVP PRN (15:17)
[2022-11-22] MEDS ORDERED: Glycopyrrolate 0.4 MG/ 2 ML VIAL SLOW IVP PRN (15:18)
[2022-11-22] MEDS ORDERED: Bisacodyl 10 MG SUPP PR PRN (15:22)
== END 2022-11-22 22:05 | disposition expired | DRG 951 ==
LOC: CCU 12:14 → UNDOADMIN 12:14 → SJJU 14:08
PROVIDERS: ADMIT Family Medicine; ATTEND Family Medicine
DX: Z51.5 Encounter for palliative care (principal); M84.48XA Pathological fracture, other site, initial encounter for fracture; N39.0 Urinary tract infection, site not specified; M84.459A Pathological fracture, hip, unspecified, initial encounter for fracture; Z66 Do not resuscitate; Z88.6 Allergy status to analgesic agent; E83.52 Hypercalcemia; E88.09 Other disorders of plasma-protein metabolism, not elsewhere classified; N28.9 Disorder of kidney and ureter, unspecified; C53.9 Malignant neoplasm of cervix uteri, unspecified; Z86.718 Personal history of other venous thrombosis and embolism; Z74.01 Bed confinement status; X58.XXXA Exposure to other specified factors, initial encounter
CPT/HCPCS: J3010